=== PATIENT | female | born 1950 ===

== ENCOUNTER 2018-11-24 15:02 | Inpatient (IN) | payer MEDICARE, OTHER ==
[2018-11-24 15:13] VITALS: BMI 32.3
--- NOTE | 2018-11-24 15:40 | C.PDOC ---
History Of Present Illness 68 y/o female pt with hx of HTN, DM, GERD and triple bypass presents to the ER c/o SOB, upper abdominal pain and intermittent chest pain for over a week. Pt reports chest pain is exertional and exacerbates when she moves. Her SOB is also exertional and because it got worse, she is unable to lay down flat. Pt also notes that she has intermittent b/l extremity swelling. Pt denies history of CHF and smoking. Pt denies any other associated sx or complaints at this time. Time Seen by Provider: 11/24/18 15:04 Chief Complaint (Nursing): Shortness Of Breath History Per: Patient History/Exam Limitations: no limitations Onset/Duration Of Symptoms: Days Current Symptoms Are (Timing): Still Present Past Medical History Reviewed: Historical Data, Nursing Documentation, Vital Signs Vital Signs: Last Vital Signs Temp 98.2 F 11/24/18 15:12 Pulse 85 11/24/18 15:12 Resp 21 11/24/18 15:12 BP 164/81 H 11/24/18 15:12 Pulse Ox 98 11/24/18 15:12 - Medical History PMH: Anemia, Arthritis, Asthma, COPD, Fractures, HTN, Hypercholesterolemia, Hypothyroidism, Osteoporosis, Rheumatoid Arthritis Surgical History: Appendectomy, CABG (2011), Endoscopy - [facility] Procedures COLONOSCOPY (01/10/14) Family History: States: No Known Family Hx - Social History Hx Alcohol Use: No Hx Substance Use: No - Immunization History Hx Tetanus Toxoid Vaccination: Yes Hx Influenza Vaccination: Yes Hx Pneumococcal Vaccination: Yes Review Of Systems Constitutional: Negative for: Fever, Chills Cardiovascular: Positive for: Chest Pain Respiratory: Positive for: Shortness of Breath Gastrointestinal: Positive for: Abdominal Pain. Negative for: Nausea, Vomiting, Diarrhea Genitourinary: Negative for: Dysuria, Frequency, Hematuria Musculoskeletal: Positive for: Other (b/l extremity swelling ) Skin: Negative for: Rash Neurological: Negative for: Weakness, Numbness Physical Exam - Physical Exam Appears: Non-toxic, No Acute Distress Skin: Warm, Dry Head: Normacephalic Eye(s): bilateral: EOMI Chest: Symmetrical Cardiovascular: Rhythm Regular Respiratory: Rhonchi (b/l bases) Gastrointestinal/Abdominal: Bowel Sounds (normal), Soft, Tenderness (epigastric ) Back: No CVA Tenderness Extremity: Tenderness (b/l lower extremity ), No Pedal Edema, No Calf Tenderness, Capillary Refill (<2 sec), No Deformity, Swelling (b/l lower extremity ) Neurological/Psych: Oriented x3, Normal Speech ED Course And Treatment - Laboratory Results Result Diagrams: 11/24/18 15:34 11/24/18 15:34 ECG: Interpreted By Me, Viewed By Me ECG Rhythm: Sinus Rhythm Interpretation Of ECG: LAD; normal intervals, no ST elevations, T wave inversions in inferolateral leads, ST depressions in inferior leads Rate From EC O2 Sat by Pulse Oximetry: 98 (RA) Pulse Ox Interpretation: Normal - Radiology CXR: Read By Radiologist (IMPRESSION: Possible small right pleural effusion. Status post CABG. No acute infiltrate.) Medical Decision Making Medical Decision Making: plans: -- chem labs -- blood work -- CXR -- aspirin Patient given 325mg ASA. Labs, EKG, CXR done. Patient with NSTEMI and likely new onset CHF. Case discussed with patient's branch lending manager Dr. Jacome, states patient underwent cardiac cath about a year ago with completely clean coronaries. For now can trend troponin. No acute intervention at this time. 600mg plavix and heparin (60u/kg bolus followed by 12u/kg/hr gtt) ordered for NSTEMI. Case discussed with Dr. Baca admitting for PMD Dr. Dorcas Barnett, accepts patient to his service. 20mg lasix ivp given for fluid overload, patient denies history of CHF. Patient admitted to telemetry bed. Does not complain of chest pain at this time. Disposition - Disposition Disposition: HOSPITALIZED Disposition Time: 16:52 Condition: FAIR - Clinical Impression Clinical Impression: NSTEMI (non-ST elevated myocardial infarction), CHF (congestive heart failure), Chest pain, Dyspnea - Scribe Statement The provider has reviewed the documentation as recorded by the Jaiden Centeno Do Provider Attestation: All medical record entries made by the Gaetanoibjae were at my direction and personally dictated by me. I have reviewed the chart and agree that the record accurately reflects my personal performance of the history, physical exam, medical decision making, and the department course for this patient. I have also personally directed, reviewed, and agree with the discharge instructions and disposition.
[2018-11-24 15:57] LABS: BASO % 0.4 % (0.0-2.0); EOS % 0.4 % (0.0-4.0); HEMOGLOBIN 10.3 g/dL (11.0-16.0); LYMPH # 1.4 K/uL (1.0-4.3); LYMPH % 15.6 % (20.0-40.0); MEAN CELL VOLUME 83.9 fL (81.0-99.0); MEAN CORPUSCULAR HEMOGLOBIN 27.9 pg (27.0-31.0); MEAN CORPUSCULAR HGB CONC 33.3 g/dL (33.0-37.0); MEAN PLATELET VOLUME 8.3 fL (7.2-11.7); MONO # 0.6 K/uL (0.0-0.8); MONO % 6.5 % (0.0-10.0); NEUT # 6.8 K/uL (1.8-7.0); NEUT % 77.1 % (50.0-75.0); NRBC % 0.1 % (0.0-2.0); RBC 3.69 Mil/uL (3.80-5.20); RED CELL DISTRIBUTION WIDTH 15.5 % (11.5-14.5); WHITE BLOOD COUNT 8.9 K/uL (4.8-10.8)
[2018-11-24 15:58] LABS: ALB/GLOB RATIO 0.9 (1.0-2.1); ALBUMIN 3.7 g/dL (3.5-5.0); CALCIUM 9.9 mg/dl (8.6-10.4)
[2018-11-24 16:27] LABS: TROPONIN I 2.97 ng/mL (0.00-0.120)
--- NOTE | 2018-11-24 16:44 | RAD ---
Date of service: 11/24/2018 HISTORY: chest pain COMPARISON: 08/11/2016 TECHNIQUE: 1 view obtained. FINDINGS: LUNGS: No infiltrate. PLEURA: Minimal blunting of right costophrenic angle. This may reflect small pleural effusion or chronic pleural thickening. No left pleural effusion. No pneumothorax. CARDIOVASCULAR: There is atherosclerotic calcification of the thoracic aorta. Status post CABG. No pulmonary vascular congestion. OSSEOUS STRUCTURES: No significant abnormalities. VISUALIZED UPPER ABDOMEN: Normal. OTHER FINDINGS: None. IMPRESSION: Possible small right pleural effusion. Status post CABG. No acute infiltrate.
[2018-11-24] MEDS ORDERED: Heparin25000 units/250ml 1/2NS 25,000 UNITS/250 ML BAG IV PRN (17:00)
[2018-11-24 17:34] LABS: INR 1.2; PROTHROMBIN TIME 13.4 SECONDS (9.7-12.2)
[2018-11-24 18:58] LABS: HDL CHOLESTEROL 38 mg/dL (30-70)
[2018-11-24 19:09] LABS: LDL CHOLESTEROL 86 mg/dL (0-129)
[2018-11-24] MEDS: (Novolin R) Insulin Human Regular 100 units/ml vial SC SCH (21:58)
--- NOTE | 2018-11-24 23:07 | CP.PCM.HP ---
Present on Admission - Present on Admission Any Indicators Present on Admission: No Past Patient History - Past Medical History & Family History Past Medical History?: Yes - Past Social History Smoking Status: Never Smoked - CARDIAC Hx Hypercholesterolemia: Yes Hx Hypertension: Yes - PULMONARY Hx Asthma: Yes Hx Chronic Obstructive Pulmonary Disease (COPD): Yes - NEUROLOGICAL Hx Neurological Disorder: No - HEENT Hx HEENT Problems: Yes Hx Cataracts: Yes - ENDOCRINE/METABOLIC Hx Hypothyroidism: Yes - HEMATOLOGICAL/ONCOLOGICAL Hx Anemia: Yes - INTEGUMENTARY Hx Dermatological Problems: No - MUSCULOSKELETAL/RHEUMATOLOGICAL Hx Falls: No - GASTROINTESTINAL Hx Gastrointestinal Disorders: Yes Hx Gastroesophageal Reflux: Yes - GENITOURINARY/GYNECOLOGICAL Hx Genitourinary Disorders: No - PSYCHIATRIC Hx Substance Use: No - SURGICAL HISTORY Hx Appendectomy: Yes Hx Coronary Artery Bypass Graft: Yes (2011) - ANESTHESIA Hx Anesthesia: Yes Hx Anesthesia Reactions: No Hx Malignant Hyperthermia: No Meds Allergies/Adverse Reactions: Allergies Allergy/AdvReac Type Severity Reaction Status Date / Time No Known Allergies Allergy Verified 11/24/18 15:09 Results - Vital Signs Recent Vital Signs: Last Vital Signs Temp 98.2 F 11/24/18 18:50 Pulse 71 11/24/18 18:50 Resp 20 11/24/18 18:50 BP 154/78 H 11/24/18 22:00 Pulse Ox 100 11/24/18 18:50 - Labs Result Diagrams: 11/24/18 15:34 11/24/18 15:34 Labs: Laboratory Results - last 24 hr 11/24/18 11/24/18 11/24/18 15:34 15:34 17:12 WBC 8.9 RBC 3.69 L Hgb 10.3 L Hct 31.0 L MCV 83.9 MCH 27.9 MCHC 33.3 RDW 15.5 H Plt Count 313 MPV 8.3 Neut % (Auto) 77.1 H Lymph % (Auto) 15.6 L [place] % (Auto) 6.5 Eos % (Auto) 0.4 Baso % (Auto) 0.4 Neut # (Auto) 6.8 Lymph # (Auto) 1.4 [place] # (Auto) 0.6 Eos # (Auto) 0.0 Baso # (Auto) 0.0 PT 13.4 H INR 1.2 APTT 37.0 H Sodium 137 Potassium 4.1 Chloride 104 Carbon Dioxide 23 Anion Gap 14 BUN 33 H Creatinine 1.2 Est GFR ( Amer) 54 Est GFR (Non-Af Amer) 45 Random Glucose 138 H Calcium 9.9 Total Bilirubin 0.4 AST 60 H ALT 64 H Alkaline Phosphatase 130 H Troponin I 2.9700 H* NT-Pro-B Natriuret Pep 94975 H Total Protein 7.7 Albumin 3.7 Globulin 4.1 H Albumin/Globulin Ratio 0.9 L Triglycerides Cholesterol LDL Cholesterol Direct HDL Cholesterol Lipase 319 H 11/24/18 18:49 WBC RBC Hgb Hct MCV MCH MCHC RDW Plt Count MPV Neut % (Auto) Lymph % (Auto) [place] % (Auto) Eos % (Auto) Baso % (Auto) Neut # (Auto) Lymph # (Auto) [place] # (Auto) Eos # (Auto) Baso # (Auto) PT INR APTT Sodium Potassium Chloride Carbon Dioxide Anion Gap BUN Creatinine Est GFR ( Amer) Est GFR (Non-Af Amer) Random Glucose Calcium Total Bilirubin AST ALT Alkaline Phosphatase Troponin I NT-Pro-B Natriuret Pep Total Protein Albumin Globulin Albumin/Globulin Ratio Triglycerides 115 Cholesterol 132 LDL Cholesterol Direct 86 HDL Cholesterol 38 Lipase
[2018-11-24 23:52] LABS: CK-MB 1.97 ng/mL (0.0-3.38); TROPONIN I 3.35 ng/mL (0.00-0.120)
[2018-11-25] MEDS: Heparin25000 units/250ml 1/2NS 25,000 UNITS/250 ML BAG IV PRN (00:56)
--- NOTE | 2018-11-25 03:11 | HP ---
CHIEF COMPLAINT: Chest pain and shortness of breath x1 week. HISTORY OF PRESENT ILLNESS: This is a 68-year-old [place] female with history of diabetes, hypertension, hyperlipidemia, hypothyroidism, status post CABG in 2012. Since then, she has been compliant with diet, medication, and followup. She recently saw her sports leadership instructor and primary care physician. For one week, she has been having shortness of breath, and she believes she has asthma. The patient denies any cough, sore throat, or runny nose. She denies any sneezing, itchy eyes, or itchy nose. She denies any history of sputum production, but she says she is in a lot of chest pain and dyspneic to a point that she cannot walk more than two steps. As soon as she starts working, she gets dyspnea. She also has orthopnea and PND. She also has dull chest pain, nonradiating, not associated with diaphoresis or dizziness. She cannot lie down flat. She also has worsening leg edema. She denies any history of prior congestive heart failure. She denies any history of cough or sputum production. She has nocturia. She denies any history of polyuria, polydipsia, or polyphagia. She denies any history of hematuria or pyuria. She denies any history of sneezing, itchy eyes, or itchy nose. There is no history of trauma, fall, or loss of consciousness. There is no history of seizure-like activity. She has tingling and numbness in the feet. She denies any history of back pain or hip pain. CURRENT MEDICATIONS: She is on Singulair, metoprolol, metformin, Levoxyl, irbesartan, Plaquenil, glimepiride, Flonase, and cyclobenzaprine. SOCIAL HISTORY: Nonsmoker, non-ETOH user. PAST MEDICAL HISTORY: Diabetes, hypertension, hyperlipidemia, hypothyroidism, coronary artery disease, status post CABG, neck pain, back pain, and rheumatoid arthritis. FAMILY HISTORY: Negative for premature coronary artery disease. PHYSICAL EXAMINATION: GENERAL: An elderly female, in distress with shortness of breath. VITAL SIGNS: Blood pressure 154/78, pulse 71, respiratory rate 20, and temperature 98. SKIN: Senile turgor. No bruises. No purpura. No petechiae. No ecchymosis. HEENT: Atraumatic and normocephalic. Negative pallor. Negative jaundice. Extraocular movements are intact. NECK: Supple. Positive JVD. Negative thyromegaly. Negative carotid bruits. CHEST WALL: Bilateral symmetrical expansion. LUNGS: Bilateral rales in two third of the lung jarrett, coarse. No rhonchi. CARDIOVASCULAR SYSTEM: PMI not localized. S1 and S2, plus S3 positive. Has 2/6 ejection systolic murmur. ABDOMEN: Soft and nontender. Bowel sounds are positive. RECTAL: Could not be performed due to dyspnea. PELVIC: Could not be performed due to dyspnea. EXTREMITIES: +3 pitting edema. CENTRAL NERVOUS SYSTEM: Awake, alert, and oriented x3. Cranial nerves II through XII are normal. Power 5/5 x4. Plantars are downgoing. ASSESSMENT: 1. Acute coronary syndrome. 2. Acute congestive heart failure, new onset. 3. Type 2 diabetes. 4. Hypertension; poorly controlled. 5. Hypothyroidism. PLAN: Admit. Detailed orders are written. Seen and examined. Abdiel Baca MD
[2018-11-25] MEDS: Levothyroxine 88 MCG TAB PO SCH (05:55)
[2018-11-25] MEDS: (Novolin R) Insulin Human Regular 100 units/ml vial SC SCH ×4 (07:52→22:00)
[2018-11-25 08:24] LABS: BASO % 0.6 % (0.0-2.0); EOS # 0.1 K/uL (0.0-0.7); EOS % 1.7 % (0.0-4.0); HEMOGLOBIN 10.2 g/dL (11.0-16.0); LYMPH # 1.6 K/uL (1.0-4.3); LYMPH % 21.7 % (20.0-40.0); MEAN CELL VOLUME 83.9 fL (81.0-99.0); MEAN CORPUSCULAR HEMOGLOBIN 28.1 pg (27.0-31.0); MEAN CORPUSCULAR HGB CONC 33.5 g/dL (33.0-37.0); MEAN PLATELET VOLUME 8.2 fL (7.2-11.7); MONO # 0.5 K/uL (0.0-0.8); MONO % 6.7 % (0.0-10.0); NEUT # 5.1 K/uL (1.8-7.0); NEUT % 69.3 % (50.0-75.0); RBC 3.64 Mil/uL (3.80-5.20); RED CELL DISTRIBUTION WIDTH 15.8 % (11.5-14.5); WHITE BLOOD COUNT 7.4 K/uL (4.8-10.8)
[2018-11-25 08:43] LABS: CK-MB 1.91 ng/mL (0.0-3.38); TROPONIN I 2.59 ng/mL (0.00-0.120)
[2018-11-25] MEDS ORDERED: Arformoterol 15 mcg/2 ml Inh Sol INH SCH (14:15)
[2018-11-25 15:02] LABS: SQUAMOUS EPITHIAL 13 /hpf (0-5); URINE BACTERIA MANY (<OCC); URINE BILIRUBIN NEGATIVE (NEGATIVE); URINE BLOOD NEGATIVE (NEGATIVE); URINE CLARITY Hazy (Clear); URINE COLOR Yellow (YELLOW); URINE GLUCOSE (UA) NORMAL (Normal); URINE LEUKOCYTE ESTERASE NEG Leu/uL (Negative); URINE PROTEIN NEGATIVE (NEGATIVE); URINE UROBILINOGEN NORMAL mg/dL (0.2-1.0)
[2018-11-25 15:33] LABS: CREATININE, RANDOM URINE 23.2 mg/dL
--- NOTE | 2018-11-25 15:50 | CP.PCM.CON ---
History of Present Illness - History of Present Illness History of Present Illness: 68 y/o female with hx of HTN, DM, GERD, CAD s/p CABG 2011 presents to [facility] with c/o SOB, upper abdominal pain and intermittent chest pain for over a week. Patient has long history of leg swelling, dyspnea on exerction and h/o diabetes. Pmx: HTN/CAD/Dm/CAd/CHF Psug hx: CABG -allergies: NKDA -SH: denies smoking or illicit drug saranya Patient recently went to a [facility] who dx her with asthma and gave her an IM injection of solumedrol/steroid. ICU consulted for worsening SOB Review of Systems - Review of Systems All systems: reviewed and no additional remarkable complaints except Past Patient History - Tetanus Immunizations Tetanus Immunization: Unknown - Past Medical History & Family History Past Medical History?: Yes - Past Social History Smoking Status: Never Smoked Chewing Tobacco Use: No Cigar Use: No - CARDIAC Hx Hypercholesterolemia: Yes Hx Hypertension: Yes - PULMONARY Hx Asthma: Yes Hx Chronic Obstructive Pulmonary Disease (COPD): Yes - NEUROLOGICAL Hx Neurological Disorder: No - HEENT Hx HEENT Problems: Yes Hx Cataracts: Yes - ENDOCRINE/METABOLIC Hx Hypothyroidism: Yes - HEMATOLOGICAL/ONCOLOGICAL Hx Anemia: Yes - INTEGUMENTARY Hx Dermatological Problems: No - MUSCULOSKELETAL/RHEUMATOLOGICAL Hx Arthritis: Yes Hx Fractures: Yes Hx Osteoporosis: Yes Hx Rheumatoid Arthritis: Yes - GASTROINTESTINAL Hx Gastrointestinal Disorders: Yes Hx Gastroesophageal Reflux: Yes - GENITOURINARY/GYNECOLOGICAL Hx Genitourinary Disorders: No - PSYCHIATRIC Hx Substance Use: No - SURGICAL HISTORY Hx Appendectomy: Yes Hx Coronary Artery Bypass Graft: Yes (2011) - ANESTHESIA Hx Anesthesia: Yes Hx Anesthesia Reactions: No Hx Malignant Hyperthermia: No Meds Allergies/Adverse Reactions: Allergies Allergy/AdvReac Type Severity Reaction Status Date / Time No Known Allergies Allergy Verified 11/24/18 15:09 - Medications Medications: Current Medications Albuterol Sulfate (Albuterol 0.083% Inhal Sophie (2.5 Mg/3 Ml) Ud) 2.5 mg INH RBID PRN PRN Reason: Wheezing Arformoterol Tartrate (Brovana) 15 mcg INH RQ12 [facility] Aspirin (Ecotrin) 81 mg PO DAILY [facility] Last Admin: 11/25/18 09:31 Dose: 81 mg Budesonide (Pulmicort Respules) 0.25 mg INH RQ12 [facility] Clopidogrel Bisulfate (Plavix) 75 mg PO DAILY [facility] Last Admin: 11/25/18 09:30 Dose: 75 mg Famotidine (Pepcid) 20 mg PO BID [facility] Last Admin: 11/25/18 09:30 Dose: 20 mg Furosemide (Lasix) 40 mg IVP DAILY [facility] Last Admin: 11/25/18 09:31 Dose: 40 mg Glimepiride (Amaryl) 2 mg PO DAILY [facility] Last Admin: 11/25/18 09:30 Dose: 2 mg Hydroxychloroquine Sulfate (Plaquenil) 200 mg PO DAILY [facility]; Protocol Last Admin: 11/25/18 09:30 Dose: 200 mg Heparin Sodium/Sodium Chloride (Heparin 50131 Units/250ml 1/2 Normal Saline) 25,000 units in 250 mls @ 6.532 mls/hr IV .Q24H PRN; Protocol PRN Reason: ADJUST RATE PER PROTOCOL Last Admin: 11/25/18 00:56 Dose: 9 units/kg/hr, 6.532 mls/hr Insulin Human Regular (Novolin R) 0 unit SC [facility]; Protocol Last Admin: 11/25/18 12:30 Dose: Not Given Levothyroxine Sodium (Synthroid) 88 mcg PO DAILY@0630 [facility] Last Admin: 11/25/18 05:55 Dose: 88 mcg Losartan Potassium (Cozaar) 100 mg PO DAILY [facility] Last Admin: 11/25/18 09:33 Dose: 100 mg Metoclopramide HCl (Reglan) 5 mg PO ACTID [facility] Last Admin: 11/25/18 13:36 Dose: 5 mg Metoprolol Tartrate (Lopressor) 50 mg PO BID [facility] Last Admin: 11/25/18 09:31 Dose: 50 mg Rosuvastatin Calcium (Crestor) 20 mg PO HS [facility] Last Admin: 11/24/18 21:46 Dose: Not Given Physical Exam - Head Exam Head Exam: ATRAUMATIC, NORMAL INSPECTION, NORMOCEPHALIC - Eye Exam Eye Exam: EOMI, PERRL Pupil Exam: NORMAL ACCOMODATION - ENT Exam ENT Exam: Mucous Membranes Moist - Respiratory Exam Respiratory Exam: Clear to Auscultation Bilateral, Rales, Respiratory Distress, NORMAL BREATHING PATTERN. absent: Rhonchi, Wheezes, Stridor - Cardiovascular Exam Cardiovascular Exam: REGULAR RHYTHM, +S1, +S2, Systolic Murmur - GI/Abdominal Exam GI & Abdominal Exam: Normal Bowel Sounds, Organomegaly, Soft. absent: Guarding, Hernia, Mass, Tenderness - Extremities Exam Extremities exam: Positive for: pedal edema - Neurological Exam Neurological exam: Alert, Oriented x3 Results - Vital Signs Recent Vital Signs: Last Vital Signs Temp 98.0 F 11/25/18 07:00 Pulse 67 11/25/18 07:00 Resp 18 11/25/18 07:00 BP 133/79 11/25/18 09:31 Pulse Ox 100 11/25/18 07:00 - Labs Result Diagrams: 11/26/18 06:12 11/26/18 06:09 Labs: Laboratory Results - last 24 hr 11/24/18 11/24/18 11/24/18 15:34 15:34 17:12 WBC 8.9 RBC 3.69 L Hgb 10.3 L Hct 31.0 L MCV 83.9 MCH 27.9 MCHC 33.3 RDW 15.5 H Plt Count 313 MPV 8.3 Neut % (Auto) 77.1 H Lymph % (Auto) 15.6 L [place] % (Auto) 6.5 Eos % (Auto) 0.4 Baso % (Auto) 0.4 Neut # (Auto) 6.8 Lymph # (Auto) 1.4 [place] # (Auto) 0.6 Eos # (Auto) 0.0 Baso # (Auto) 0.0 PT 13.4 H INR 1.2 APTT 37.0 H Sodium 137 Potassium 4.1 Chloride 104 Carbon Dioxide 23 Anion Gap 14 BUN 33 H Creatinine 1.2 Est GFR ( Amer) 54 Est GFR (Non-Af Amer) 45 Random Glucose 138 H Calcium 9.9 Total Bilirubin 0.4 AST 60 H ALT 64 H Alkaline Phosphatase 130 H Total Creatine Kinase CK-MB (Mass) Troponin I 2.9700 H* NT-Pro-B Natriuret Pep 42943 H Total Protein 7.7 Albumin 3.7 Globulin 4.1 H Albumin/Globulin Ratio 0.9 L Triglycerides Cholesterol LDL Cholesterol Direct HDL Cholesterol Lipase 319 H Urine Color Urine Clarity Urine pH Ur Specific [place] Urine Protein Urine Glucose (UA) Urine Ketones Urine Blood Urine Nitrate Urine Bilirubin Urine Urobilinogen Ur Leukocyte Esterase Urine WBC (Auto) Urine RBC (Auto) Ur Squamous Epith Cells Urine Bacteria Ur Random Creatinine Ur Random Sodium Ur Random Urea Nitrogn 11/24/18 11/24/18 11/24/18 18:49 22:57 23:16 WBC RBC Hgb Hct MCV MCH MCHC RDW Plt Count MPV Neut % (Auto) Lymph % (Auto) [place] % (Auto) Eos % (Auto) Baso % (Auto) Neut # (Auto) Lymph # (Auto) [place] # (Auto) Eos # (Auto) Baso # (Auto) PT INR APTT 149.0 H* D Sodium Potassium Chloride Carbon Dioxide Anion Gap BUN Creatinine Est GFR ( Amer) Est GFR (Non-Af Amer) Random Glucose Calcium Total Bilirubin AST ALT Alkaline Phosphatase Total Creatine Kinase 65 CK-MB (Mass) 1.97 Troponin I 3.3500 H* NT-Pro-B Natriuret Pep Total Protein Albumin Globulin Albumin/Globulin Ratio Triglycerides 115 Cholesterol 132 LDL Cholesterol Direct 86 HDL Cholesterol 38 Lipase Urine Color Urine Clarity Urine pH Ur Specific [place] Urine Protein Urine Glucose (UA) Urine Ketones Urine Blood Urine Nitrate Urine Bilirubin Urine Urobilinogen Ur Leukocyte Esterase Urine WBC (Auto) Urine RBC (Auto) Ur Squamous Epith Cells Urine Bacteria Ur Random Creatinine Ur Random Sodium Ur Random Urea Nitrogn 11/25/18 11/25/18 11/25/18 07:57 07:57 07:57 WBC 7.4 RBC 3.64 L Hgb 10.2 L Hct 30.6 L MCV 83.9 MCH 28.1 MCHC 33.5 RDW 15.8 H Plt Count 303 MPV 8.2 Neut % (Auto) 69.3 Lymph % (Auto) 21.7 [place] % (Auto) 6.7 Eos % (Auto) 1.7 Baso % (Auto) 0.6 Neut # (Auto) 5.1 Lymph # (Auto) 1.6 [place] # (Auto) 0.5 Eos # (Auto) 0.1 Baso # (Auto) 0.0 PT INR APTT 62.0 H D Sodium Potassium Chloride Carbon Dioxide Anion Gap BUN Creatinine Est GFR ( Amer) Est GFR (Non-Af Amer) Random Glucose Calcium Total Bilirubin AST ALT Alkaline Phosphatase Total Creatine Kinase 52 CK-MB (Mass) 1.91 Troponin I 2.5900 H* NT-Pro-B Natriuret Pep Total Protein Albumin Globulin Albumin/Globulin Ratio Triglycerides Cholesterol LDL Cholesterol Direct HDL Cholesterol Lipase Urine Color Urine Clarity Urine pH Ur Specific [place] Urine Protein Urine Glucose (UA) Urine Ketones Urine Blood Urine Nitrate Urine Bilirubin Urine Urobilinogen Ur Leukocyte Esterase Urine WBC (Auto) Urine RBC (Auto) Ur Squamous Epith Cells Urine Bacteria Ur Random Creatinine Ur Random Sodium Ur Random Urea Nitrogn 11/25/18 11/25/18 11/25/18 14:27 14:55 14:55 WBC RBC Hgb Hct MCV MCH MCHC RDW Plt Count MPV Neut % (Auto) Lymph % (Auto) [place] % (Auto) Eos % (Auto) Baso % (Auto) Neut # (Auto) Lymph # (Auto) [place] # (Auto) Eos # (Auto) Baso # (Auto) PT INR APTT 50.0 H D Sodium Potassium Chloride Carbon Dioxide Anion Gap BUN Creatinine Est GFR ( Amer) Est GFR (Non-Af Amer) Random Glucose Calcium Total Bilirubin AST ALT Alkaline Phosphatase Total Creatine Kinase CK-MB (Mass) Troponin I NT-Pro-B Natriuret Pep Total Protein Albumin Globulin Albumin/Globulin Ratio Triglycerides Cholesterol LDL Cholesterol Direct HDL Cholesterol Lipase Urine Color Yellow Urine Clarity Hazy Urine pH 5.0 Ur Specific [place] 1.005 Urine Protein Negative Urine Glucose (UA) Normal Urine Ketones Negative Urine Blood Negative Urine Nitrate Negative Urine Bilirubin Negative Urine Urobilinogen Normal Ur Leukocyte Esterase Neg Urine WBC (Auto) 1 Urine RBC (Auto) 1 Ur Squamous Epith Cells 13 H Urine Bacteria Many H Ur Random Creatinine 23.2 Ur Random Sodium 105 Ur Random Urea Nitrogn 195 Assessment & Plan - Assessment and Plan (Free Text) Assessment: NSTEMI: continue IV heparin and DAP therapy as per cardiology, continue statin, monitor serial trop and echo CHronic systolic heart failure: negative balance, decrease preload and a fterloaed, bi-pap PRN -CKD: avoid nephrotoxic drugs, avoid bactrim, hold losartan if cath anticipated -Diabeted: check HBA1c, hold bactrim, in light of posisble cardiac carth -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 - Date & Time Date: 11/25/18 Time: 15:54
--- NOTE | 2018-11-25 16:00 | CP.PCM.CON ---
History of Present Illness - History of Present Illness History of Present Illness: Reason For Consultation: Non ST elevation [place] 68 y/o female pt with hx of HTN, DM, GERD and triple bypass presents to the ER c/o SOB, upper abdominal pain and intermittent chest pain for over a week. Pt reports chest pain is exertional and exacerbates when she moves. Her SOB is also exertional and because it got worse, she is unable to lay down flat. Pt also notes that she has intermittent b/l extremity swelling. Pt denies history of CHF and smoking. Pt denies any other associated sx or complaints at this time. Chief Complaint (Nursing): Shortness Of Breath History Per: Patient History/Exam Limitations: no limitations Onset/Duration Of Symptoms: Days Current Symptoms Are (Timing): Still Present Past Medical History Reviewed: Historical Data, Nursing Documentation, Vital Signs Vital Signs: Last Vital Signs Temp 98.2 F 11/24/18 15:12 Pulse 85 11/24/18 15:12 Resp 21 11/24/18 15:12 BP 164/81 H 11/24/18 15:12 Pulse Ox 98 11/24/18 15:12 - Medical History PMH: Anemia, Arthritis, Asthma, COPD, Fractures, HTN, Hypercholesterolemia, Hypothyroidism, Osteoporosis, Rheumatoid Arthritis Surgical History: Appendectomy, CABG (2011), Endoscopy - [facility] Procedures COLONOSCOPY (01/10/14) Family History: States: No Known Family Hx - Social History Hx Alcohol Use: No Hx Substance Use: No - Immunization History Hx Tetanus Toxoid Vaccination: Yes Hx Influenza Vaccination: Yes Hx Pneumococcal Vaccination: Yes Review Of Systems Constitutional: Negative for: Fever, Chills Cardiovascular: Positive for: Chest Pain Respiratory: Positive for: Shortness of Breath Gastrointestinal: Positive for: Abdominal Pain. Negative for: Nausea, Vomiting, Diarrhea Genitourinary: Negative for: Dysuria, Frequency, Hematuria Musculoskeletal: Positive for: Other (b/l extremity swelling ) Skin: Negative for: Rash Neurological: Negative for: Weakness, Numbness Physical Exam - Physical Exam Appears: Non-toxic, No Acute Distress Skin: Warm, Dry Head: Normacephalic Eye(s): bilateral: EOMI Chest: Symmetrical Cardiovascular: Rhythm Regular Respiratory: Rhonchi (b/l bases) Gastrointestinal/Abdominal: Bowel Sounds (normal), Soft, Tenderness (epigastric ) Back: No CVA Tenderness Extremity: Tenderness (b/l lower extremity ), No Pedal Edema, No Calf Tenderness, Capillary Refill (<2 sec), No Deformity, Swelling (b/l lower e xtremity ) Neurological/Psych: Oriented x3, Normal Speech Past Patient History - Tetanus Immunizations Tetanus Immunization: Unknown - Past Medical History & Family History Past Medical History?: Yes - Past Social History Smoking Status: Never Smoked Chewing Tobacco Use: No Cigar Use: No - CARDIAC Hx Hypercholesterolemia: Yes Hx Hypertension: Yes - PULMONARY Hx Asthma: Yes Hx Chronic Obstructive Pulmonary Disease (COPD): Yes - NEUROLOGICAL Hx Neurological Disorder: No - HEENT Hx HEENT Problems: Yes Hx Cataracts: Yes - ENDOCRINE/METABOLIC Hx Hypothyroidism: Yes - HEMATOLOGICAL/ONCOLOGICAL Hx Anemia: Yes - INTEGUMENTARY Hx Dermatological Problems: No - MUSCULOSKELETAL/RHEUMATOLOGICAL Hx Arthritis: Yes Hx Fractures: Yes Hx Osteoporosis: Yes Hx Rheumatoid Arthritis: Yes - GASTROINTESTINAL Hx Gastrointestinal Disorders: Yes Hx Gastroesophageal Reflux: Yes - GENITOURINARY/GYNECOLOGICAL Hx Genitourinary Disorders: No - PSYCHIATRIC Hx Substance Use: No - SURGICAL HISTORY Hx Appendectomy: Yes Hx Coronary Artery Bypass Graft: Yes (2011) - ANESTHESIA Hx Anesthesia: Yes Hx Anesthesia Reactions: No Hx Malignant Hyperthermia: No Meds Allergies/Adverse Reactions: Allergies Allergy/AdvReac Type Severity Reaction Status Date / Time No Known Allergies Allergy Verified 11/24/18 15:09 - Medications Medications: Current Medications Albuterol Sulfate (Albuterol 0.083% Inhal Sophie (2.5 Mg/3 Ml) Ud) 2.5 mg INH RBID PRN PRN Reason: Wheezing Arformoterol Tartrate (Brovana) 15 mcg INH RQ12 [facility] Aspirin (Ecotrin) 81 mg PO DAILY [facility] Last Admin: 11/25/18 09:31 Dose: 81 mg Budesonide (Pulmicort Respules) 0.25 mg INH RQ12 [facility] Clopidogrel Bisulfate (Plavix) 75 mg PO DAILY [facility] Last Admin: 11/25/18 09:30 Dose: 75 mg Famotidine (Pepcid) 20 mg PO BID [facility] Last Admin: 11/25/18 09:30 Dose: 20 mg Furosemide (Lasix) 40 mg IVP DAILY [facility] Last Admin: 11/25/18 09:31 Dose: 40 mg Glimepiride (Amaryl) 2 mg PO DAILY [facility] Last Admin: 11/25/18 09:30 Dose: 2 mg Hydroxychloroquine Sulfate (Plaquenil) 200 mg PO DAILY [facility]; Protocol Last Admin: 11/25/18 09:30 Dose: 200 mg Heparin Sodium/Sodium Chloride (Heparin 04056 Units/250ml 1/2 Normal Saline) 25,000 units in 250 mls @ 6.532 mls/hr IV .Q24H PRN; Protocol PRN Reason: ADJUST RATE PER PROTOCOL Last Admin: 11/25/18 00:56 Dose: 9 units/kg/hr, 6.532 mls/hr Insulin Human Regular (Novolin R) 0 unit SC ACHS [facility]; Protocol Last Admin: 11/25/18 12:30 Dose: Not Given Levothyroxine Sodium (Synthroid) 88 mcg PO DAILY@0630 [facility] Last Admin: 11/25/18 05:55 Dose: 88 mcg Losartan Potassium (Cozaar) 100 mg PO DAILY [facility] Last Admin: 11/25/18 09:33 Dose: 100 mg Metoclopramide HCl (Reglan) 5 mg PO ACTID [facility] Last Admin: 11/25/18 13:36 Dose: 5 mg Metoprolol Tartrate (Lopressor) 50 mg PO BID [facility] Last Admin: 11/25/18 09:31 Dose: 50 mg Rosuvastatin Calcium (Crestor) 20 mg PO HS [facility] Last Admin: 11/24/18 21:46 Dose: Not Given Results - Vital Signs Recent Vital Signs: Last Vital Signs Temp 98.0 F 11/25/18 07:00 Pulse 67 11/25/18 07:00 Resp 18 11/25/18 07:00 BP 133/79 11/25/18 09:31 Pulse Ox 100 11/25/18 07:00 - Labs Result Diagrams: 11/25/18 07:57 11/24/18 15:34 Labs: Laboratory Results - last 24 hr 11/24/18 11/24/18 11/24/18 15:34 15:34 17:12 WBC 8.9 RBC 3.69 L Hgb 10.3 L Hct 31.0 L MCV 83.9 MCH 27.9 MCHC 33.3 RDW 15.5 H Plt Count 313 MPV 8.3 Neut % (Auto) 77.1 H Lymph % (Auto) 15.6 L [place] % (Auto) 6.5 Eos % (Auto) 0.4 Baso % (Auto) 0.4 Neut # (Auto) 6.8 Lymph # (Auto) 1.4 [place] # (Auto) 0.6 Eos # (Auto) 0.0 Baso # (Auto) 0.0 PT 13.4 H INR 1.2 APTT 37.0 H Sodium 137 Potassium 4.1 Chloride 104 Carbon Dioxide 23 Anion Gap 14 BUN 33 H Creatinine 1.2 Est GFR ( Amer) 54 Est GFR (Non-Af Amer) 45 Random Glucose 138 H Calcium 9.9 Total Bilirubin 0.4 AST 60 H ALT 64 H Alkaline Phosphatase 130 H Total Creatine Kinase CK-MB (Mass) Troponin I 2.9700 H* NT-Pro-B Natriuret Pep 37055 H Total Protein 7.7 Albumin 3.7 Globulin 4.1 H Albumin/Globulin Ratio 0.9 L Triglycerides Cholesterol LDL Cholesterol Direct HDL Cholesterol Lipase 319 H Urine Color Urine Clarity Urine pH Ur Specific [place] Urine Protein Urine Glucose (UA) Urine Ketones Urine Blood Urine Nitrate Urine Bilirubin Urine Urobilinogen Ur Leukocyte Esterase Urine WBC (Auto) Urine RBC (Auto) Ur Squamous Epith Cells Urine Bacteria Ur Random Creatinine Ur Random Sodium Ur Random Urea Nitrogn 11/24/18 11/24/18 11/24/18 18:49 22:57 23:16 WBC RBC Hgb Hct MCV MCH MCHC RDW Plt Count MPV Neut % (Auto) Lymph % (Auto) [place] % (Auto) Eos % (Auto) Baso % (Auto) Neut # (Auto) Lymph # (Auto) [place] # (Auto) Eos # (Auto) Baso # (Auto) PT INR APTT 149.0 H* D Sodium Potassium Chloride Carbon Dioxide Anion Gap BUN Creatinine Est GFR ( Amer) Est GFR (Non-Af Amer) Random Glucose Calcium Total Bilirubin AST ALT Alkaline Phosphatase Total Creatine Kinase 65 CK-MB (Mass) 1.97 Troponin I 3.3500 H* NT-Pro-B Natriuret Pep Total Protein Albumin Globulin Albumin/Globulin Ratio Triglycerides 115 Cholesterol 132 LDL Cholesterol Direct 86 HDL Cholesterol 38 Lipase Urine Color Urine Clarity Urine pH Ur Specific [place] Urine Protein Urine Glucose (UA) Urine Ketones Urine Blood Urine Nitrate Urine Bilirubin Urine Urobilinogen Ur Leukocyte Esterase Urine WBC (Auto) Urine RBC (Auto) Ur Squamous Epith Cells Urine Bacteria Ur Random Creatinine Ur Random Sodium Ur Random Urea Nitrogn 11/25/18 11/25/18 11/25/18 07:57 07:57 07:57 WBC 7.4 RBC 3.64 L Hgb 10.2 L Hct 30.6 L MCV 83.9 MCH 28.1 MCHC 33.5 RDW 15.8 H Plt Count 303 MPV 8.2 Neut % (Auto) 69.3 Lymph % (Auto) 21.7 [place] % (Auto) 6.7 Eos % (Auto) 1.7 Baso % (Auto) 0.6 Neut # (Auto) 5.1 Lymph # (Auto) 1.6 [place] # (Auto) 0.5 Eos # (Auto) 0.1 Baso # (Auto) 0.0 PT INR APTT 62.0 H D Sodium Potassium Chloride Carbon Dioxide Anion Gap BUN Creatinine Est GFR ( Amer) Est GFR (Non-Af Amer) Random Glucose Calcium Total Bilirubin AST ALT Alkaline Phosphatase Total Creatine Kinase 52 CK-MB (Mass) 1.91 Troponin I 2.5900 H* NT-Pro-B Natriuret Pep Total Protein Albumin Globulin Albumin/Globulin Ratio Triglycerides Cholesterol LDL Cholesterol Direct HDL Cholesterol Lipase Urine Color Urine Clarity Urine pH Ur Specific [place] Urine Protein Urine Glucose (UA) Urine Ketones Urine Blood Urine Nitrate Urine Bilirubin Urine Urobilinogen Ur Leukocyte Esterase Urine WBC (Auto) Urine RBC (Auto) Ur Squamous Epith Cells Urine Bacteria Ur Random Creatinine Ur Random Sodium Ur Random Urea Nitrogn 11/25/18 11/25/18 11/25/18 14:27 14:55 14:55 WBC RBC Hgb Hct MCV MCH MCHC RDW Plt Count MPV Neut % (Auto) Lymph % (Auto) [place] % (Auto) Eos % (Auto) Baso % (Auto) Neut # (Auto) Lymph # (Auto) [place] # (Auto) Eos # (Auto) Baso # (Auto) PT INR APTT 50.0 H D Sodium Potassium Chloride Carbon Dioxide Anion Gap BUN Creatinine Est GFR ( Amer) Est GFR (Non-Af Amer) Random Glucose Calcium Total Bilirubin AST ALT Alkaline Phosphatase Total Creatine Kinase CK-MB (Mass) Troponin I NT-Pro-B Natriuret Pep Total Protein Albumin Globulin Albumin/Globulin Ratio Triglycerides Cholesterol LDL Cholesterol Direct HDL Cholesterol Lipase Urine Color Yellow Urine Clarity Hazy Urine pH 5.0 Ur Specific [place] 1.005 Urine Protein Negative Urine Glucose (UA) Normal Urine Ketones Negative Urine Blood Negative Urine Nitrate Negative Urine Bilirubin Negative Urine Urobilinogen Normal Ur Leukocyte Esterase Neg Urine WBC (Auto) 1 Urine RBC (Auto) 1 Ur Squamous Epith Cells 13 H Urine Bacteria Many H Ur Random Creatinine 23.2 Ur Random Sodium 105 Ur Random Urea Nitrogn 195 Assessment & Plan - Assessment and Plan (Free Text) Assessment: 68 F with Acute Coronary syndrome Elevated Troponin Lateral ST depression CAD s/p CABG x 3 (2011) DM2 HTN Hyperlipidemia ASA, Plavix, IV Heparin, Statins, B blockers ECHO Cardiac Cath Tuesday ICU observation Thank you
[2018-11-25 16:40] LABS: CK-MB 1.44 ng/mL (0.0-3.38)
[2018-11-25 17:14] LABS: ALBUMIN 3.6 g/dL (3.5-5.0); CALCIUM 9.1 mg/dl (8.6-10.4)
--- NOTE | 2018-11-25 17:58 | RAD ---
Date of service: 11/25/2018 HISTORY: r/o CHF COMPARISON: 11/24/2018 TECHNIQUE: 1 view obtained. FINDINGS: LUNGS: No consolidation. Possible interstitial pulmonary edema. PLEURA: Small right pleural effusion. No left pleural effusion. No pneumothorax. CARDIOVASCULAR: No aortic atherosclerotic calcification present. Normal heart size. Congestive change noted. Sternotomy wires. No pulmonary vascular congestion. OSSEOUS STRUCTURES: No significant abnormalities. VISUALIZED UPPER ABDOMEN: Normal. OTHER FINDINGS: None. IMPRESSION: Possible interstitial pulmonary edema. Follow-up advised. Congestive change. Small right pleural effusion. No infiltrate.
[2018-11-25] MEDS: Budesonide 0.25 mg/2 ml Inhal Susp UD INH SCH (19:44)
[2018-11-25] MEDS: Albuterol 0.083% Inhal Sol (2.5 mg/3 mL) UD INH PRN (19:44)
[2018-11-25] MEDS: Arformoterol 15 mcg/2 ml Inh Sol INH SCH (19:44)
--- NOTE | 2018-11-25 20:29 | CP.PCM.PN ---
Subjective - Date & Time of Evaluation Date of Evaluation: 11/25/18 Time of Evaluation: 07:00 - Subjective Subjective: dcit Objective - Vital Signs/Intake and Output Vital Signs (last 24 hours): Temp Pulse Resp BP Pulse Ox 98.3 F 61 24 161/85 H 100 11/25/18 20:00 11/25/18 20:00 11/25/18 20:00 11/25/18 20:00 11/25/18 20:00 Intake and Output: 11/25/18 11/26/18 18:59 06:59 Intake Total 269.5 13.0 Output Total 50 300 Balance 219.5 -287.0 - Medications Medications: Current Medications Albuterol Sulfate (Albuterol 0.083% Inhal Sophie (2.5 Mg/3 Ml) Ud) 2.5 mg INH RBID PRN PRN Reason: Wheezing Last Admin: 11/25/18 19:44 Dose: 2.5 mg Arformoterol Tartrate (Brovana) 15 mcg INH RQ12 [facility] Last Admin: 11/25/18 19:44 Dose: 15 mcg Aspirin (Ecotrin) 81 mg PO DAILY [facility] Last Admin: 11/25/18 09:31 Dose: 81 mg Budesonide (Pulmicort Respules) 0.25 mg INH RQ12 [facility] Last Admin: 11/25/18 19:44 Dose: 0.25 mg Clopidogrel Bisulfate (Plavix) 75 mg PO DAILY [facility] Last Admin: 11/25/18 09:30 Dose: 75 mg Famotidine (Pepcid) 20 mg PO BID [facility] Last Admin: 11/25/18 17:30 Dose: 20 mg Furosemide (Lasix) 40 mg IVP DAILY [facility] Last Admin: 11/25/18 09:31 Dose: 40 mg Glimepiride (Amaryl) 2 mg PO DAILY [facility] Last Admin: 11/25/18 09:30 Dose: 2 mg Hydroxychloroquine Sulfate (Plaquenil) 200 mg PO DAILY [facility]; Protocol Last Admin: 11/25/18 09:30 Dose: 200 mg Heparin Sodium/Sodium Chloride (Heparin 49542 Units/250ml 1/2 Normal Saline) 25,000 units in 250 mls @ 6.532 mls/hr IV .Q24H PRN; Protocol PRN Reason: ADJUST RATE PER PROTOCOL Last Admin: 11/25/18 00:56 Dose: 9 units/kg/hr, 6.532 mls/hr Insulin Human Regular (Novolin R) 0 unit SC ACHS [facility]; Protocol Last Admin: 11/25/18 16:58 Dose: Not Given Levothyroxine Sodium (Synthroid) 88 mcg PO DAILY@0630 [facility] Last Admin: 11/25/18 05:55 Dose: 88 mcg Losartan Potassium (Cozaar) 100 mg PO DAILY [facility] Last Admin: 11/25/18 09:33 Dose: 100 mg Metoclopramide HCl (Reglan) 5 mg PO ACTID [facility] Last Admin: 11/25/18 17:38 Dose: Not Given Metoprolol Tartrate (Lopressor) 50 mg PO BID [facility] Last Admin: 11/25/18 17:30 Dose: 50 mg Rosuvastatin Calcium (Crestor) 20 mg PO HS [facility] Last Admin: 11/24/18 21:46 Dose: Not Given - Labs Labs: 11/25/18 07:57 11/25/18 16:26 PT 13.4 SECONDS (9.7-12.2) H 11/24/18 17:12 INR 1.2 11/24/18 17:12 APTT 50.0 SECONDS (21-34) H D 11/25/18 14:27
--- NOTE | 2018-11-26 00:37 | PN ---
DATE: 11/25/2018 SUBJECTIVE: The patient is feeling a lot better. She is less short of breath, less orthopnea, less cough, less wheezing. No fever. Troponins are trending downwards. The patient does admit seen by Cardiology. No fever. No chills. No nausea or vomiting. PHYSICAL EXAMINATION: VITAL SIGNS: Blood pressure 161/85, pulse rate is 61, respiratory rate 24, temperature 98.3. LUNGS: Bilateral basilar crepitations in one fourth of the lung field at the bases. CARDIOVASCULAR: S1 and S2 plus S3 positive. ABDOMEN: Soft and nontender. Bowel sounds are positive. ASSESSMENT: 1. Acute myocardial infarction. The patient is on medical management, heparin drip; and Cardiology requested transfer patient to the intensive care unit. 2. Congestive heart failure due ischemic cardiomyopathy. 3. Type 2 diabetes. 4. Hypertension. PLAN: MICU. Cardiology, echocardiogram, heparin drip, aspirin, Plavix, statin, Lasix. We will monitor the patient. Abdiel Baca MD
[2018-11-26] MEDS: Levothyroxine 88 MCG TAB PO SCH (06:08)
[2018-11-26 06:18] LABS: BASO # 0.1 K/uL (0.0-0.2); BASO % 0.7 % (0.0-2.0); EOS # 0.2 K/uL (0.0-0.7); EOS % 2.1 % (0.0-4.0); HEMOGLOBIN 10.3 g/dL (11.0-16.0); LYMPH # 1.9 K/uL (1.0-4.3); LYMPH % 24.3 % (20.0-40.0); MEAN CELL VOLUME 85.1 fL (81.0-99.0); MEAN CORPUSCULAR HEMOGLOBIN 26.9 pg (27.0-31.0); MEAN CORPUSCULAR HGB CONC 31.6 g/dL (33.0-37.0); MEAN PLATELET VOLUME 8.2 fL (7.2-11.7); MONO # 0.6 K/uL (0.0-0.8); MONO % 7.4 % (0.0-10.0); NEUT # 5.2 K/uL (1.8-7.0); NEUT % 65.5 % (50.0-75.0); NRBC % 0.1 % (0.0-2.0); RBC 3.83 Mil/uL (3.80-5.20); RED CELL DISTRIBUTION WIDTH 15.8 % (11.5-14.5)
[2018-11-26 06:37] LABS: ALB/GLOB RATIO 1.2 (1.0-2.1); ALBUMIN 4.1 g/dL (3.5-5.0); CALCIUM 9.5 mg/dl (8.6-10.4)
[2018-11-26 07:07] LABS: FERRITIN 16.5 ng/mL
[2018-11-26] MEDS: Albuterol 0.083% Inhal Sol (2.5 mg/3 mL) UD INH PRN ×2 (07:37→19:15)
[2018-11-26] MEDS: Budesonide 0.25 mg/2 ml Inhal Susp UD INH SCH ×2 (07:37→19:15)
[2018-11-26] MEDS: Arformoterol 15 mcg/2 ml Inh Sol INH SCH ×2 (07:37→22:02)
[2018-11-26] MEDS: Heparin25000 units/250ml 1/2NS 25,000 UNITS/250 ML BAG IV PRN (07:46)
[2018-11-26] MEDS: (Novolin R) Insulin Human Regular 100 units/ml vial SC SCH ×4 (07:48→21:26)
[2018-11-26] MEDS ORDERED: Ergocalciferol 50,000 Intl Units Cap PO SCH ×2 (08:00→10:00)
--- NOTE | 2018-11-26 08:01 | CP.PCM.PN ---
Subjective - Date & Time of Evaluation Date of Evaluation: 11/26/18 Time of Evaluation: 07:59 - Subjective Subjective: Feeling better, unable to sleep, SOB on walking 5 feet Objective - Vital Signs/Intake and Output Vital Signs (last 24 hours): Temp Pulse Resp BP Pulse Ox 98.1 F 67 25 H 179/91 H 100 11/26/18 04:00 11/26/18 07:00 11/26/18 07:00 11/26/18 06:59 11/26/18 07:00 Intake and Output: 11/26/18 11/26/18 06:59 18:59 Intake Total 204.5 250 Output Total 1000 Balance -795.5 250 - Medications Medications: Current Medications Acetylcysteine (Acetylcysteine 20%) 6 ml PO Q12H [facility] Stop: 11/27/18 20:01 Albuterol Sulfate (Albuterol 0.083% Inhal Sophie (2.5 Mg/3 Ml) Ud) 2.5 mg INH RBID PRN PRN Reason: Wheezing Last Admin: 11/26/18 07:37 Dose: 2.5 mg Arformoterol Tartrate (Brovana) 15 mcg INH RQ12 [facility] Last Admin: 11/26/18 07:37 Dose: 15 mcg Aspirin (Ecotrin) 81 mg PO DAILY [facility] Last Admin: 11/25/18 09:31 Dose: 81 mg Budesonide (Pulmicort Respules) 0.25 mg INH RQ12 [facility] Last Admin: 11/26/18 07:37 Dose: 0.25 mg Clopidogrel Bisulfate (Plavix) 75 mg PO DAILY [facility] Last Admin: 11/25/18 09:30 Dose: 75 mg Ergocalciferol (Drisdol 50,000 Intl Units Cap) 1 cap PO Q7D [facility] Stop: 12/17/18 08:01 Famotidine (Pepcid) 20 mg PO BID [facility] Last Admin: 11/25/18 17:30 Dose: 20 mg Furosemide (Lasix) 40 mg IVP DAILY [facility] Last Admin: 11/25/18 09:31 Dose: 40 mg Glimepiride (Amaryl) 2 mg PO DAILY [facility] Last Admin: 11/25/18 09:30 Dose: 2 mg Hydroxychloroquine Sulfate (Plaquenil) 200 mg PO DAILY [facility]; Protocol Last Admin: 11/25/18 09:30 Dose: 200 mg Heparin Sodium/Sodium Chloride (Heparin 46645 Units/250ml 1/2 Normal Saline) 25,000 units in 250 mls @ 6.532 mls/hr IV .Q24H [facility]; Protocol PRN Reason: ADJUST RATE PER PROTOCOL Last Admin: 11/26/18 07:46 Dose: 9 units/kg/hr, 6.532 mls/hr Magnesium Sulfate/Dextrose (Magnesium Sulfate 1 Gm/100 Ml D5w) 1 gm in 100 mls @ 100 mls/hr IVPB Q1H [facility] Stop: 11/26/18 09:59 Insulin Human Regular (Novolin R) 0 unit SC ACHS [facility]; Protocol Last Admin: 11/26/18 07:48 Dose: Not Given Levothyroxine Sodium (Synthroid) 88 mcg PO DAILY@0630 [facility] Last Admin: 11/26/18 06:08 Dose: 88 mcg Losartan Potassium (Cozaar) 100 mg PO DAILY [facility] Last Admin: 11/25/18 09:33 Dose: 100 mg Metoclopramide HCl (Reglan) 5 mg PO ACTID [facility] Last Admin: 11/26/18 07:45 Dose: 5 mg Metoprolol Tartrate (Lopressor) 50 mg PO BID [facility] Last Admin: 11/25/18 17:30 Dose: 50 mg Rosuvastatin Calcium (Crestor) 20 mg PO HS [facility] Last Admin: 11/25/18 22:30 Dose: 20 mg Spironolactone (Aldactone) 25 mg PO BID [facility] - Labs Labs: 11/26/18 06:12 11/26/18 06:09 PT 13.4 SECONDS (9.7-12.2) H 11/24/18 17:12 INR 1.2 11/24/18 17:12 APTT 50.0 SECONDS (21-34) H D 11/25/18 14:27 - Head Exam Head Exam: ATRAUMATIC, NORMAL INSPECTION, NORMOCEPHALIC - Eye Exam Pupil Exam: NORMAL ACCOMODATION - ENT Exam ENT Exam: Mucous Membranes Moist - Respiratory Exam Respiratory Exam: Rales, NORMAL BREATHING PATTERN. absent: Rhonchi, Wheezes, Respiratory Distress, Stridor - Cardiovascular Exam Cardiovascular Exam: REGULAR RHYTHM, +S1, +S2 - GI/Abdominal Exam GI & Abdominal Exam: Soft, Normal Bowel Sounds - Extremities Exam Extremities Exam: Pedal Edema - Neurological Exam Neurological Exam: Alert, Awake, CN II-XII Intact, Oriented x3 - Skin Skin Exam: Normal Color, Warm Assessment and Plan - Assessment and Plan (Free Text) Assessment: -NSTEMI: continue IV heparin and DAP therapy as per cardiology, continue statin, monitor serial trop and echo -CHronic systolic/diastolic heart failure: negative balance, decrease preload and afterloaed, bi-pap PRN -Lupus: contineu hydroxychloroquine -Suspect ILD 2nd lupus: continue to monitor -CKD: avoid nephrotoxic drugs, avoid bactrim, hold losartan if cath anticipated -Diabeted: check HBA1c, hold bactrim, in light of posisble cardiac carth -BGM ACHS, ISS lispro -continu edvt ppx/rx with heparin -continue PUD ppx -start oral mucomyst 1200 mg q12 hrs x4 _Progonsis pending cath and other diagnostic tests -Patient feeling better -monitor for bleeding as patient stays on Iv heparin
[2018-11-26] MEDS: Magnesium Sulfate 1 gm in D5W 1 GM/100 ML BAG IVPB SCH ×2 (08:09→08:45)
[2018-11-26] MEDS: Acetylcysteine 20% Inhal Soln (4ml) PO SCH ×2 (08:22→19:15)
--- NOTE | 2018-11-26 08:43 | CON ---
DATE: 11/25/2018 NEPHROLOGY CONSULTATION LOCATION: [facility]. HISTORY OF PRESENT ILLNESS: The patient is a 68-year-old female with past medical history of hypertension, diabetes, CAD, status post CABG (2011), GERD, hypothyroidism, and hyperlipidemia who presented to ED yesterday with worsening dyspnea and associated chest pain. Nephrology being consulted for renal insufficiency. The patient reports dyspnea on exertion with associated increase in leg swelling over the past 1 week. Chest pain is non-radiating, although does complain of some neck pain. The patient denies any change in urination. No decreased urination. The patient does not adhere to dietary salt restriction. The patient otherwise was in her usual state of health. Denies any nausea, vomiting or diarrhea. P.o. intake had been well. PAST MEDICAL HISTORY: As above. SOCIAL HISTORY: Nonsmoker. FAMILY HISTORY: Negative for premature CAD. REVIEW OF SYSTEMS: CONSTITUTIONAL: No anorexia. HEENT: Reports stabilization. Does report some dysphagia. RESPIRATORY: Increased dyspnea. CARDIOVASCULAR: As per HPI. GASTROINTESTINAL: As per HPI. GENITOURINARY: No dysuria. MUSCULOSKELETAL: Gets arthralgias in the knees. Reports taking some pain medication but does not remember the name. NEUROLOGIC: No dizziness. ENDOCRINE: He reports erratic blood pressure control. PHYSICAL EXAMINATION VITAL SIGNS: This afternoon blood pressure 155/83, heart rate 69, respirations 28, temperature 98.2, sat 100% on 3 L via nasal cannula. GENERAL: No distress. Conversing coherently in full sentences. HEENT: Moist mucous membranes. Nonicteric. NECK: No cervical lymphadenopathy. RESPIRATORY: Bilateral basilar rales appreciated. CARDIOVASCULAR: Heart sounds S1, S2 normal. No murmurs, no gallops, no rubs. GASTROINTESTINAL: Abdomen soft, nontender, nondistended. GENITOURINARY: No bladder distention. EXTREMITIES: 2+ bilateral lower leg edema. SKIN: Warm. No cyanosis. PSYCHIATRIC: Normal mood. Normal affect. LABORATORY DATA: This morning CBC: WBC 7.4, hemoglobin 10.2, hematocrit 30.6, platelets 303. Chemistry panel: From yesterday; sodium 137, potassium 4.1, chloride 104, bicarb 23, BUN 32, creatinine 1.2, calcium 9.9, AST 60, ALT 64, alk phos 130, troponin I 2.97. ProBNP 28,800, albumin 3.7. Urine studies: UA negative for protein. Negative for blood. ASSESSMENT AND PLAN: 1. Renal insufficiency. Baseline renal function not known. The patient however reports no prior renal history. Estimated glomerular filtration rate on latest labs is 45 mL per minute. Otherwise stable electrolyte status but does have signs and symptoms of volume overload. I will be with intensive care unit team to pursue more aggressive diuresis. Can increase IV Lasix to 40 mg twice a day. 2. Acute decompensated congestive heart failure. No new echo available. Diuresis as above. 3. Anemia. Hemoglobin 10.2, stable. Unclear if this is due to underlying chronic kidney disease or other disease process. We will give Epogen 1000 units. We will check iron studies. 4. Hypertension. Blood pressure elevated. Currently on losartan 100 mg daily and metoprolol 50 mg b.i.d. Continue the same. Will benefit from intravenous diuresis. 5. Coronary artery disease in a patient with new [id number] myocardia. We will go for cardiac cath tentatively for Tuesday. We will start intravenous fluids and n-acetylcysteine on Tuesday evening as contrast nephropathy prophylaxis. Thank you for this referral. We will be following closely. Silvano Allen MD
--- NOTE | 2018-11-26 10:56 | CP.PCM.PN ---
Subjective - Date & Time of Evaluation Date of Evaluation: 11/26/18 Time of Evaluation: 08:40 - Subjective Subjective: dict Objective - Vital Signs/Intake and Output Vital Signs (last 24 hours): Temp Pulse Resp BP Pulse Ox 98.4 F 75 27 H 148/59 L 99 11/26/18 08:00 11/26/18 10:00 11/26/18 10:00 11/26/18 09:59 11/26/18 10:00 Intake and Output: 11/26/18 11/26/18 06:59 18:59 Intake Total 204.5 839.5 Output Total 1000 Balance -795.5 839.5 - Medications Medications: Current Medications Acetylcysteine (Acetylcysteine 20%) 6 ml PO Q12H [facility] Stop: 11/27/18 20:01 Last Admin: 11/26/18 08:22 Dose: 6 ml Albuterol Sulfate (Albuterol 0.083% Inhal Sophie (2.5 Mg/3 Ml) Ud) 2.5 mg INH RBID PRN PRN Reason: Wheezing Last Admin: 11/26/18 07:37 Dose: 2.5 mg Arformoterol Tartrate (Brovana) 15 mcg INH RQ12 [facility] Last Admin: 11/26/18 07:37 Dose: 15 mcg Aspirin (Ecotrin) 81 mg PO DAILY [facility] Last Admin: 11/26/18 09:42 Dose: 81 mg Budesonide (Pulmicort Respules) 0.25 mg INH RQ12 [facility] Last Admin: 11/26/18 07:37 Dose: 0.25 mg Clopidogrel Bisulfate (Plavix) 75 mg PO DAILY [facility] Last Admin: 11/26/18 09:42 Dose: 75 mg Ergocalciferol (Drisdol 50,000 Intl Units Cap) 1 cap PO Q7D [facility] Stop: 12/17/18 10:01 Last Admin: 11/26/18 09:41 Dose: 1 cap Famotidine (Pepcid) 20 mg PO BID [facility] Last Admin: 11/26/18 09:42 Dose: 20 mg Furosemide (Lasix) 40 mg IVP DAILY [facility] Last Admin: 11/26/18 09:43 Dose: 40 mg Glimepiride (Amaryl) 2 mg PO DAILY [facility] Last Admin: 11/26/18 09:42 Dose: 2 mg Hydroxychloroquine Sulfate (Plaquenil) 200 mg PO DAILY [facility]; Protocol Last Admin: 11/26/18 09:42 Dose: 200 mg Heparin Sodium/Sodium Chloride (Heparin 22691 Units/250ml 1/2 Normal Saline) 25,000 units in 250 mls @ 6.532 mls/hr IV .Q24H PRN; Protocol PRN Reason: ADJUST RATE PER PROTOCOL Last Admin: 11/26/18 07:46 Dose: 9 units/kg/hr, 6.532 mls/hr Insulin Human Regular (Novolin R) 0 unit SC ACHS [facility]; Protocol Last Admin: 11/26/18 07:48 Dose: Not Given Levothyroxine Sodium (Synthroid) 88 mcg PO DAILY@0630 [facility] Last Admin: 11/26/18 06:08 Dose: 88 mcg Losartan Potassium (Cozaar) 100 mg PO DAILY [facility] Last Admin: 11/26/18 09:42 Dose: 100 mg Metoclopramide HCl (Reglan) 5 mg PO ACTID [facility] Last Admin: 11/26/18 07:45 Dose: 5 mg Metoprolol Tartrate (Lopressor) 50 mg PO BID [facility] Last Admin: 11/26/18 09:41 Dose: 50 mg Rosuvastatin Calcium (Crestor) 20 mg PO HS [facility] Last Admin: 11/25/18 22:30 Dose: 20 mg Spironolactone (Aldactone) 25 mg PO BID [facility] Last Admin: 11/26/18 09:42 Dose: 25 mg - Labs Labs: 11/26/18 06:12 11/26/18 06:09 PT 13.4 SECONDS (9.7-12.2) H 11/24/18 17:12 INR 1.2 11/24/18 17:12 APTT 46.0 SECONDS (21-34) H 11/26/18 08:01
[2018-11-26] MEDS: Lidocaine 5% Patch TD SCH (12:28)
--- NOTE | 2018-11-26 19:59 | CP.PCM.PN ---
Subjective - Date & Time of Evaluation Date of Evaluation: 11/26/18 Time of Evaluation: 07:00 - Subjective Subjective: dict Objective - Vital Signs/Intake and Output Vital Signs (last 24 hours): Temp Pulse Resp BP Pulse Ox 98.1 F 63 22 137/60 100 11/26/18 16:00 11/26/18 19:00 11/26/18 19:00 11/26/18 17:59 11/26/18 19:00 Intake and Output: 11/26/18 11/27/18 18:59 06:59 Intake Total 1091.5 156.5 Output Total 1000 Balance 91.5 156.5 - Medications Medications: Current Medications Acetylcysteine (Acetylcysteine 20%) 6 ml PO Q12H [facility] Stop: 11/27/18 20:01 Last Admin: 11/26/18 19:15 Dose: 6 ml Albuterol Sulfate (Albuterol 0.083% Inhal Sophie (2.5 Mg/3 Ml) Ud) 2.5 mg INH RBID PRN PRN Reason: Wheezing Last Admin: 11/26/18 19:15 Dose: 2.5 mg Arformoterol Tartrate (Brovana) 15 mcg INH RQ12 [facility] Last Admin: 11/26/18 07:37 Dose: 15 mcg Aspirin (Ecotrin) 81 mg PO DAILY [facility] Last Admin: 11/26/18 09:42 Dose: 81 mg Budesonide (Pulmicort Respules) 0.25 mg INH RQ12 [facility] Last Admin: 11/26/18 19:15 Dose: 0.25 mg Clopidogrel Bisulfate (Plavix) 75 mg PO DAILY [facility] Last Admin: 11/26/18 09:42 Dose: 75 mg Ergocalciferol (Drisdol 50,000 Intl Units Cap) 1 cap PO Q7D [facility] Stop: 12/17/18 10:01 Last Admin: 11/26/18 09:41 Dose: 1 cap Famotidine (Pepcid) 20 mg PO BID [facility] Last Admin: 11/26/18 17:17 Dose: 20 mg Furosemide (Lasix) 40 mg IVP DAILY [facility] Last Admin: 11/26/18 09:43 Dose: 40 mg Glimepiride (Amaryl) 2 mg PO DAILY [facility] Last Admin: 11/26/18 09:42 Dose: 2 mg Hydroxychloroquine Sulfate (Plaquenil) 200 mg PO DAILY [facility]; Protocol Last Admin: 11/26/18 09:42 Dose: 200 mg Heparin Sodium/Sodium Chloride (Heparin 17800 Units/250ml 1/2 Normal Saline) 25,000 units in 250 mls @ 6.532 mls/hr IV .Q24H [facility]; Protocol PRN Reason: ADJUST RATE PER PROTOCOL Last Admin: 11/26/18 07:46 Dose: 9 units/kg/hr, 6.532 mls/hr Insulin Human Regular (Novolin R) 0 unit SC ACHS [facility]; Protocol Last Admin: 11/26/18 17:17 Dose: Not Given Levothyroxine Sodium (Synthroid) 88 mcg PO DAILY@0630 [facility] Last Admin: 11/26/18 06:08 Dose: 88 mcg Lidocaine (Lidoderm) 1 ea TD DAILY [facility] Last Admin: 11/26/18 12:28 Dose: 1 ea Losartan Potassium (Cozaar) 100 mg PO DAILY [facility] Last Admin: 11/26/18 09:42 Dose: 100 mg Metoclopramide HCl (Reglan) 5 mg PO ACTID [facility] Last Admin: 11/26/18 16:30 Dose: 5 mg Metoprolol Tartrate (Lopressor) 50 mg PO BID [facility] Last Admin: 11/26/18 17:18 Dose: Not Given Rosuvastatin Calcium (Crestor) 20 mg PO HS [facility] Last Admin: 11/25/18 22:30 Dose: 20 mg Spironolactone (Aldactone) 25 mg PO BID [facility] Last Admin: 11/26/18 17:17 Dose: 25 mg - Labs Labs: 11/26/18 06:12 11/26/18 06:09 PT 13.4 SECONDS (9.7-12.2) H 11/24/18 17:12 INR 1.2 11/24/18 17:12 APTT 46.0 SECONDS (21-34) H 11/26/18 08:01
--- NOTE | 2018-11-26 21:25 | CP.PCM.PN ---
Subjective - Date & Time of Evaluation Date of Evaluation: 11/26/18 Time of Evaluation: 16:20 - Subjective Subjective: Patient seen and evaluated in ICU Says chest pain improved and breathing is better Review Of Systems Constitutional: Negative for: Fever, Chills Cardiovascular: Positive for: Chest Pain Respiratory: Positive for: Shortness of Breath Gastrointestinal: Positive for: Abdominal Pain. Negative for: Nausea, Vomiting, Diarrhea Genitourinary: Negative for: Dysuria, Frequency, Hematuria Musculoskeletal: Positive for: Other (b/l extremity swelling ) Skin: Negative for: Rash Neurological: Negative for: Weakness, Numbness Physical Exam - Physical Exam Appears: Non-toxic, No Acute Distress Skin: Warm, Dry Head: Normacephalic Eye(s): bilateral: EOMI Chest: Symmetrical Cardiovascular: Rhythm Regular Respiratory: Rhonchi (b/l bases) Gastrointestinal/Abdominal: Bowel Sounds (normal), Soft, Tenderness (epigastric ) Back: No CVA Tenderness Extremity: Tenderness (b/l lower extremity ), No Pedal Edema, No Calf Tenderness, Capillary Refill (<2 sec), No Deformity, Swelling (b/l lower extremity ) Neurological/Psych: Oriented x3, Normal Speech Objective - Vital Signs/Intake and Output Vital Signs (last 24 hours): Temp Pulse Resp BP Pulse Ox 97.9 F 65 21 159/66 H 100 11/26/18 20:00 11/26/18 20:00 11/26/18 20:00 11/26/18 20:00 11/26/18 20:00 Intake and Output: 11/26/18 11/27/18 18:59 06:59 Intake Total 1091.5 169.5 Output Total 1000 Balance 91.5 169.5 - Medications Medications: Current Medications Acetylcysteine (Acetylcysteine 20%) 6 ml PO Q12H [facility] Stop: 11/27/18 20:01 Last Admin: 11/26/18 19:15 Dose: 6 ml Albuterol Sulfate (Albuterol 0.083% Inhal Sophie (2.5 Mg/3 Ml) Ud) 2.5 mg INH RBID PRN PRN Reason: Wheezing Last Admin: 11/26/18 19:15 Dose: 2.5 mg Arformoterol Tartrate (Brovana) 15 mcg INH RQ12 [facility] Last Admin: 11/26/18 07:37 Dose: 15 mcg Aspirin (Ecotrin) 81 mg PO DAILY [facility] Last Admin: 11/26/18 09:42 Dose: 81 mg Budesonide (Pulmicort Respules) 0.25 mg INH RQ12 [facility] Last Admin: 11/26/18 19:15 Dose: 0.25 mg Clopidogrel Bisulfate (Plavix) 75 mg PO DAILY [facility] Last Admin: 11/26/18 09:42 Dose: 75 mg Ergocalciferol (Drisdol 50,000 Intl Units Cap) 1 cap PO Q7D [facility] Stop: 12/17/18 10:01 Last Admin: 11/26/18 09:41 Dose: 1 cap Famotidine (Pepcid) 20 mg PO BID [facility] Last Admin: 11/26/18 17:17 Dose: 20 mg Furosemide (Lasix) 40 mg IVP DAILY [facility] Last Admin: 11/26/18 09:43 Dose: 40 mg Glimepiride (Amaryl) 2 mg PO DAILY [facility] Last Admin: 11/26/18 09:42 Dose: 2 mg Hydroxychloroquine Sulfate (Plaquenil) 200 mg PO DAILY [facility]; Protocol Last Admin: 11/26/18 09:42 Dose: 200 mg Heparin Sodium/Sodium Chloride (Heparin 74977 Units/250ml 1/2 Normal Saline) 25,000 units in 250 mls @ 6.532 mls/hr IV .Q24H [facility]; Protocol PRN Reason: ADJUST RATE PER PROTOCOL Last Admin: 11/26/18 07:46 Dose: 9 units/kg/hr, 6.532 mls/hr Insulin Human Regular (Novolin R) 0 unit SC ACHS [facility]; Protocol Last Admin: 11/26/18 17:17 Dose: Not Given Levothyroxine Sodium (Synthroid) 88 mcg PO DAILY@0630 [facility] Last Admin: 11/26/18 06:08 Dose: 88 mcg Lidocaine (Lidoderm) 1 ea TD DAILY [facility] Last Admin: 11/26/18 12:28 Dose: 1 ea Losartan Potassium (Cozaar) 100 mg PO DAILY [facility] Last Admin: 11/26/18 09:42 Dose: 100 mg Metoclopramide HCl (Reglan) 5 mg PO ACTID [facility] Last Admin: 11/26/18 16:30 Dose: 5 mg Metoprolol Tartrate (Lopressor) 50 mg PO BID [facility] Last Admin: 11/26/18 17:18 Dose: Not Given Rosuvastatin Calcium (Crestor) 20 mg PO HS [facility] Last Admin: 11/25/18 22:30 Dose: 20 mg Spironolactone (Aldactone) 25 mg PO BID [facility] Last Admin: 11/26/18 17:17 Dose: 25 mg - Labs Labs: 11/26/18 06:12 11/26/18 06:09 PT 13.4 SECONDS (9.7-12.2) H 11/24/18 17:12 INR 1.2 11/24/18 17:12 APTT 46.0 SECONDS (21-34) H 11/26/18 08:01 Assessment and Plan - Assessment and Plan (Free Text) Assessment: 68 F with Acute Coronary syndrome Elevated Troponin Lateral ST depression CAD s/p CABG x 3 (2011) DM2 HTN Hyperlipidemia ASA, Plavix, IV Heparin, Statins, B blockers ECHO Cardiac Cath tomorrow at 4pm NPO after 12pm (Light lunch can be given prior to 12 noon) ICU observation
--- NOTE | 2018-11-26 22:35 | CP.PCM.PN ---
Subjective - Date & Time of Evaluation Date of Evaluation: 11/26/18 Time of Evaluation: 22:30 - Subjective Subjective: Patient with some dyspnea on movement but otherwise has been comfortable per nursing staff; Objective - Vital Signs/Intake and Output Vital Signs (last 24 hours): Temp Pulse Resp BP Pulse Ox 97.9 F 64 21 159/66 H 100 11/26/18 20:00 11/26/18 22:00 11/26/18 22:00 11/26/18 20:00 11/26/18 22:00 Intake and Output: 11/26/18 11/27/18 18:59 06:59 Intake Total 1091.5 282.5 Output Total 1000 Balance 91.5 282.5 - Medications Medications: Current Medications Acetylcysteine (Acetylcysteine 20%) 6 ml PO Q12H [facility] Stop: 11/27/18 20:01 Last Admin: 11/26/18 19:15 Dose: 6 ml Albuterol Sulfate (Albuterol 0.083% Inhal Sophie (2.5 Mg/3 Ml) Ud) 2.5 mg INH RBID PRN PRN Reason: Wheezing Last Admin: 11/26/18 19:15 Dose: 2.5 mg Arformoterol Tartrate (Brovana) 15 mcg INH RQ12 [facility] Last Admin: 11/26/18 22:02 Dose: 15 mcg Aspirin (Ecotrin) 81 mg PO DAILY [facility] Last Admin: 11/26/18 09:42 Dose: 81 mg Budesonide (Pulmicort Respules) 0.25 mg INH RQ12 [facility] Last Admin: 11/26/18 19:15 Dose: 0.25 mg Clopidogrel Bisulfate (Plavix) 75 mg PO DAILY [facility] Last Admin: 11/26/18 09:42 Dose: 75 mg Ergocalciferol (Drisdol 50,000 Intl Units Cap) 1 cap PO Q7D [facility] Stop: 12/17/18 10:01 Last Admin: 11/26/18 09:41 Dose: 1 cap Famotidine (Pepcid) 20 mg PO BID [facility] Last Admin: 11/26/18 17:17 Dose: 20 mg Furosemide (Lasix) 40 mg IVP DAILY [facility] Last Admin: 11/26/18 09:43 Dose: 40 mg Glimepiride (Amaryl) 2 mg PO DAILY [facility] Last Admin: 11/26/18 09:42 Dose: 2 mg Hydroxychloroquine Sulfate (Plaquenil) 200 mg PO DAILY [facility]; Protocol Last Admin: 11/26/18 09:42 Dose: 200 mg Heparin Sodium/Sodium Chloride (Heparin 57082 Units/250ml 1/2 Normal Saline) 25,000 units in 250 mls @ 6.532 mls/hr IV .Q24H [facility]; Protocol PRN Reason: ADJUST RATE PER PROTOCOL Last Admin: 11/26/18 07:46 Dose: 9 units/kg/hr, 6.532 mls/hr Insulin Human Regular (Novolin R) 0 unit SC ACHS [facility]; Protocol Last Admin: 11/26/18 21:26 Dose: Not Given Levothyroxine Sodium (Synthroid) 88 mcg PO DAILY@0630 [facility] Last Admin: 11/26/18 06:08 Dose: 88 mcg Lidocaine (Lidoderm) 1 ea TD DAILY [facility] Last Admin: 11/26/18 12:28 Dose: 1 ea Losartan Potassium (Cozaar) 100 mg PO DAILY [facility] Last Admin: 11/26/18 09:42 Dose: 100 mg Metoclopramide HCl (Reglan) 5 mg PO ACTID [facility] Last Admin: 11/26/18 16:30 Dose: 5 mg Metoprolol Tartrate (Lopressor) 50 mg PO BID [facility] Last Admin: 11/26/18 17:18 Dose: Not Given Rosuvastatin Calcium (Crestor) 20 mg PO HS [facility] Last Admin: 11/26/18 21:22 Dose: 20 mg Spironolactone (Aldactone) 25 mg PO BID [facility] Last Admin: 11/26/18 17:17 Dose: 25 mg - Labs Labs: 11/26/18 06:12 11/26/18 06:09 PT 13.4 SECONDS (9.7-12.2) H 11/24/18 17:12 INR 1.2 11/24/18 17:12 APTT 46.0 SECONDS (21-34) H 11/26/18 08:01 - Constitutional Appears: Non-toxic, No Acute Distress - Respiratory Exam Respiratory Exam: absent: Respiratory Distress - Psychiatric Exam Psychiatric exam: absent: Agitated Assessment and Plan (1) CHF (congestive heart failure) Assessment & Plan: Acute decompensated CHF; awaiting echo; continue with lasix 40 mg IV daily for now, adding aldactone 25 mg bid for added ESTELLE blockade and to offset alkalosis; Status: Acute (2) Renal insufficiency Assessment & Plan: Relatively mild renal insufficiency; is risk factor for contrast nephropathy; will recommend to to placed on IVF with NS at 75 cc/hr for 6 hrs prior to cardiac cath for contrast prophylaxis (cath scheduled for tomorrow afternoon); continue NAC; Status: Chronic (3) HTN (hypertension) Assessment & Plan: BP relatively controlled, elevated at times; continue current meds including losartan 100 mg daily; Status: Acute
--- NOTE | 2018-11-27 03:18 | PN ---
DATE: 11/26/2018 SUBJECTIVE: The patient is feeling better. No chest pain. No shortness of breath. No cough. No fever. No nausea or vomiting. She is on heparin drip and PTT is therapeutic. PHYSICAL EXAMINATION: VITAL SIGNS: Blood pressure 159/66, pulse 65, respiratory rate 21, temperature 97.9. LUNGS: Bilateral basal crepitation. CARDIOVASCULAR SYSTEM: S1, S2, regular. ABDOMEN: Soft, nontender. Bowel sounds are positive. ASSESSMENT: 1. Acute congestive heart failure. 2. Acute myocardial infarction. 3. Type 2 diabetes. 4. Hypertension. PLAN: Continue heparin drip. Intensive care unit. Monitor the patient. Abdiel Baca MD
[2018-11-27 05:13] LABS: ALB/GLOB RATIO 0.9 (1.0-2.1); ALBUMIN 3.6 g/dL (3.5-5.0); CALCIUM 9.3 mg/dl (8.6-10.4)
[2018-11-27 05:25] LABS: BASO # 0.1 K/uL (0.0-0.2); BASO % 0.7 % (0.0-2.0); EOS # 0.1 K/uL (0.0-0.7); EOS % 1.8 % (0.0-4.0); HEMOGLOBIN 10.6 g/dL (11.0-16.0); LYMPH # 1.6 K/uL (1.0-4.3); LYMPH % 20.1 % (20.0-40.0); MEAN CELL VOLUME 84.2 fL (81.0-99.0); MEAN CORPUSCULAR HEMOGLOBIN 28.1 pg (27.0-31.0); MEAN CORPUSCULAR HGB CONC 33.4 g/dL (33.0-37.0); MEAN PLATELET VOLUME 8.2 fL (7.2-11.7); MONO # 0.6 K/uL (0.0-0.8); MONO % 8.2 % (0.0-10.0); NEUT # 5.4 K/uL (1.8-7.0); NEUT % 69.2 % (50.0-75.0); NRBC % 0.1 % (0.0-2.0); RBC 3.75 Mil/uL (3.80-5.20); RED CELL DISTRIBUTION WIDTH 15.4 % (11.5-14.5); WHITE BLOOD COUNT 7.8 K/uL (4.8-10.8)
[2018-11-27] MEDS: Levothyroxine 88 MCG TAB PO SCH (06:19)
[2018-11-27] MEDS: Albuterol 0.083% Inhal Sol (2.5 mg/3 mL) UD INH PRN (08:35)
[2018-11-27] MEDS: (Novolin R) Insulin Human Regular 100 units/ml vial SC SCH ×4 (08:49→22:00)
[2018-11-27] MEDS: Acetylcysteine 20% Inhal Soln (4ml) PO SCH ×3 (08:56→20:52)
[2018-11-27] MEDS: Lidocaine 5% Patch TD SCH (09:16)
[2018-11-27] MEDS ORDERED: Sodium Chloride 0.9% 500 ML IV SCH (10:00)
[2018-11-27] MEDS ORDERED: Iodixanol 320 MG/ML 100 ML BOTTLE IV ONE ×2 (16:07→18:22)
[2018-11-27] MEDS ORDERED: Lidocaine 2% MPF (5 ml) Inj ONE ×2 (16:07→18:37)
--- NOTE | 2018-11-27 17:33 | CP.PCM.PN ---
Subjective - Date & Time of Evaluation Date of Evaluation: 11/27/18 Time of Evaluation: 09:30 - Subjective Subjective: Nephro Progress Note for Dr. Alejandro Cruz DO, PGY-3 Patient seen and examined at bedside in ICU. Currently sitting in chair, without supplemental O2, no acute distress. Reports some baseline midline chest discomfort and shortness of breath. Denies dysuria, hematuria, urinary frequency. Pending Cardiac cath at 4pm today, will hydrate with NS at 75cc/hr for 6 hrs prior to ppx against GUIDO. Objective - Vital Signs/Intake and Output Vital Signs (last 24 hours): Temp Pulse Resp BP Pulse Ox 97.2 F L 70 13 160/86 H 97 11/27/18 12:00 11/27/18 12:32 11/27/18 12:32 11/27/18 12:32 11/27/18 12:32 Intake and Output: 11/27/18 11/27/18 06:59 18:59 Intake Total 434.5 69.5 Balance 434.5 69.5 - Medications Medications: Current Medications Acetylcysteine (Acetylcysteine 20%) 6 ml PO Q12H [facility] Stop: 11/27/18 20:01 Last Admin: 11/27/18 08:56 Dose: 6 ml Albuterol Sulfate (Albuterol 0.083% Inhal Sophie (2.5 Mg/3 Ml) Ud) 2.5 mg INH RBID PRN PRN Reason: Wheezing Last Admin: 11/27/18 08:35 Dose: 2.5 mg Arformoterol Tartrate (Brovana) 15 mcg INH RQ12 [facility] Last Admin: 11/26/18 22:02 Dose: 15 mcg Aspirin (Ecotrin) 81 mg PO DAILY [facility] Last Admin: 11/27/18 09:16 Dose: 81 mg Budesonide (Pulmicort Respules) 0.25 mg INH RQ12 [facility] Last Admin: 11/26/18 19:15 Dose: 0.25 mg Clopidogrel Bisulfate (Plavix) 75 mg PO DAILY [facility] Last Admin: 11/27/18 09:16 Dose: 75 mg Ergocalciferol (Drisdol 50,000 Intl Units Cap) 1 cap PO Q7D [facility] Stop: 12/17/18 10:01 Last Admin: 11/26/18 09:41 Dose: 1 cap Famotidine (Pepcid) 20 mg PO BID [facility] Last Admin: 11/27/18 09:16 Dose: 20 mg Furosemide (Lasix) 40 mg IVP DAILY [facility] Last Admin: 11/26/18 09:43 Dose: 40 mg Glimepiride (Amaryl) 2 mg PO DAILY [facility] Last Admin: 11/27/18 09:16 Dose: 2 mg Hydroxychloroquine Sulfate (Plaquenil) 200 mg PO DAILY [facility]; Protocol Last Admin: 11/26/18 09:42 Dose: 200 mg Heparin Sodium/Sodium Chloride (Heparin 83032 Units/250ml 1/2 Normal Saline) 25,000 units in 250 mls @ 6.532 mls/hr IV .Q24H [facility]; Protocol PRN Reason: ADJUST RATE PER PROTOCOL Last Admin: 11/26/18 07:46 Dose: 9 units/kg/hr, 6.532 mls/hr Insulin Human Regular (Novolin R) 0 unit SC ACHS [facility]; Protocol Last Admin: 11/27/18 11:09 Dose: Not Given Levothyroxine Sodium (Synthroid) 88 mcg PO DAILY@0630 [facility] Last Admin: 11/27/18 06:19 Dose: 88 mcg Lidocaine (Lidoderm) 1 ea TD DAILY [facility] Last Admin: 11/27/18 09:16 Dose: 1 ea Losartan Potassium (Cozaar) 100 mg PO DAILY [facility] Last Admin: 11/27/18 09:16 Dose: 100 mg Metoclopramide HCl (Reglan) 5 mg PO ACTID [facility] Last Admin: 11/27/18 11:09 Dose: Not Given Metoprolol Tartrate (Lopressor) 50 mg PO BID [facility] Last Admin: 11/27/18 09:16 Dose: 50 mg Rosuvastatin Calcium (Crestor) 20 mg PO HS [facility] Last Admin: 11/26/18 21:22 Dose: 20 mg Spironolactone (Aldactone) 25 mg PO BID [facility] Last Admin: 11/26/18 17:17 Dose: 25 mg - Labs Labs: 11/27/18 04:49 11/27/18 04:49 PT 13.4 SECONDS (9.7-12.2) H 11/24/18 17:12 INR 1.2 11/24/18 17:12 APTT 49.0 SECONDS (21-34) H 11/27/18 04:49 - Constitutional Appears: Non-toxic, No Acute Distress - Head Exam Head Exam: ATRAUMATIC, NORMAL INSPECTION, NORMOCEPHALIC - Eye Exam Eye Exam: Normal appearance. absent: Conjunctival injection, Scleral icterus - ENT Exam ENT Exam: Mucous Membranes Moist - Neck Exam Neck Exam: Full ROM - Respiratory Exam Respiratory Exam: Clear to Ausculation Bilateral, NORMAL BREATHING PATTERN. absent: Accessory Muscle Use, Chest Wall Tenderness, Decreased Breath Sounds, Rales, Rhonchi, Wheezes - Cardiovascular Exam Cardiovascular Exam: REGULAR RHYTHM, RRR, +S1, +S2. absent: Bradycardia, Tachycardia, Irregular Rhythm, JVD, +S4 - GI/Abdominal Exam GI & Abdominal Exam: Soft, Normal Bowel Sounds. absent: Distended, Firm, Guarding, Rigid, Tenderness, Diminished Bowel Sounds, Hyperactive Bowel Sounds, Hypoactive Bowel Sounds - Extremities Exam Extremities Exam: Pedal Edema (+1-2 pitting edema from feet to mid-shins bilaterally), Tenderness. absent: Calf Tenderness - Neurological Exam Additional comments: awake and alert, following all commands appropriately moving all extremities spontaneously and on command motor grossly intact and equal bilaterally - Psychiatric Exam Psychiatric exam: Normal Affect, Normal Mood - Skin Skin Exam: Dry, Intact, Normal Color, Warm Assessment and Plan - Assessment and Plan (Free Text) Assessment: This is a 68 yo F with PMH of DM, HTN, RA, SLE, GERD, and CAD s/p CABG who presented with complaints of SOB, abd pain, and exertional chest pain x1 week, and was found to have NSTEMI. Nephro was consulted for ORTEGA. Pending Cardiac Cath today. Plan: 1) acute onset CHF 2) ORTEGA 3) NSTEMI 4) HTN 5) DM 6) Hx SLE 7) Hypothyroidism -Cr remains 1.1, stable Pending cardiac cath today, risk for GUIDO, but benefits outweigh risks; ppx with NS IVF at 75cc/hr for 6 hrs prior to procedure -Improved but still present fluid overload, continue aldactone and lasix -Continue home SLE management -Continue current BP management -Continue home synthroid Seen, reviewed, and discussed with attending, Dr. Allen.
[2018-11-27] MEDS ORDERED: Midazolam 2 MG/2 ML VIAL ONE (18:05)
--- NOTE | 2018-11-27 18:54 | CP.PCM.PN ---
Subjective - Date & Time of Evaluation Date of Evaluation: 11/27/18 Time of Evaluation: 18:46 - Subjective Subjective: Patient s/p cardiac Cath 1. L Main: Short and patent 2. LAD: Proximal to mid long 90%, Distal 100% 3. L Cx: Proximal 95%, Distal 100% 4. RCA: Prox 100% 5. DAILEY to LAD: patent 6. Grafts to L Cx and RCA: Occluded 7. Dialated LV with EF of 20%, EDP 52, No AV gradient A/P: 1. 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 Single patent graft (DAILEY to LAD) 3. Severely elevated LV EDP 4. 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 Objective - Vital Signs/Intake and Output Vital Signs (last 24 hours): Temp Pulse Resp BP Pulse Ox 97.2 F L 70 13 160/86 H 97 11/27/18 12:00 11/27/18 12:32 11/27/18 12:32 11/27/18 12:32 11/27/18 12:32 Intake and Output: 11/27/18 11/27/18 06:59 18:59 Intake Total 434.5 339.5 Balance 434.5 339.5 - Medications Medications: Current Medications Acetylcysteine (Acetylcysteine 20%) 6 ml PO Q12H [facility] Stop: 11/27/18 20:01 Last Admin: 11/27/18 08:56 Dose: 6 ml Albuterol Sulfate (Albuterol 0.083% Inhal Sophie (2.5 Mg/3 Ml) Ud) 2.5 mg INH RBID PRN PRN Reason: Wheezing Last Admin: 11/27/18 08:35 Dose: 2.5 mg Arformoterol Tartrate (Brovana) 15 mcg INH RQ12 [facility] Last Admin: 11/26/18 22:02 Dose: 15 mcg Aspirin (Ecotrin) 81 mg PO DAILY [facility] Last Admin: 11/27/18 09:16 Dose: 81 mg Budesonide (Pulmicort Respules) 0.25 mg INH RQ12 [facility] Last Admin: 11/26/18 19:15 Dose: 0.25 mg Clopidogrel Bisulfate (Plavix) 75 mg PO DAILY [facility] Last Admin: 11/27/18 09:16 Dose: 75 mg Enoxaparin Sodium (Lovenox) 40 mg SC DAILY [facility] Ergocalciferol (Drisdol 50,000 Intl Units Cap) 1 cap PO Q7D [facility] Stop: 12/17/18 10:01 Last Admin: 11/26/18 09:41 Dose: 1 cap Famotidine (Pepcid) 20 mg PO BID [facility] Last Admin: 11/27/18 18:26 Dose: Not Given Furosemide (Lasix) 40 mg IVP DAILY [facility] Last Admin: 11/26/18 09:43 Dose: 40 mg Glimepiride (Amaryl) 2 mg PO DAILY [facility] Last Admin: 11/27/18 09:16 Dose: 2 mg Hydroxychloroquine Sulfate (Plaquenil) 200 mg PO DAILY [facility]; Protocol Last Admin: 11/27/18 18:25 Dose: Not Given Insulin Human Regular (Novolin R) 0 unit SC [facility]; Protocol Last Admin: 11/27/18 18:25 Dose: Not Given Levothyroxine Sodium (Synthroid) 88 mcg PO DAILY@0630 [facility] Last Admin: 11/27/18 06:19 Dose: 88 mcg Lidocaine (Lidoderm) 1 ea TD DAILY [facility] Last Admin: 11/27/18 09:16 Dose: 1 ea Losartan Potassium (Cozaar) 100 mg PO DAILY [facility] Last Admin: 11/27/18 09:16 Dose: 100 mg Metoclopramide HCl (Reglan) 5 mg PO ACTID [facility] Last Admin: 11/27/18 18:26 Dose: Not Given Metoprolol Tartrate (Lopressor) 50 mg PO BID [facility] Last Admin: 11/27/18 18:26 Dose: Not Given Rosuvastatin Calcium (Crestor) 20 mg PO HS [facility] Last Admin: 11/26/18 21:22 Dose: 20 mg Spironolactone (Aldactone) 25 mg PO BID [facility] Last Admin: 11/26/18 17:17 Dose: 25 mg - Labs Labs: 11/27/18 04:49 11/27/18 04:49 PT 13.4 SECONDS (9.7-12.2) H 11/24/18 17:12 INR 1.2 11/24/18 17:12 APTT 49.0 SECONDS (21-34) H 11/27/18 04:49
--- NOTE | 2018-11-27 19:11 | CARD ---
APPROVED REPORT Date of service: 11/27/2018 EXAM: Two-dimensional and M-mode echocardiogram with Doppler and color Doppler. Other Information Quality : GoodRhythm : INDICATION Acute IA Congestive Heart Failure COPD Surgery/Intervention CABG: RISK FACTORS Hypertension Hyperlipidemia 2D DIMENSIONS IVSd0.9 (0.7-1.1cm)LVDd5.0 (3.9-5.9cm) PWd0.7 (0.7-1.1cm)LA Jcoepd17 (18-58mL) LVDs4.7 (2.5-4.0cm)FS (%) 6.4 % LVEF (%)24.3 (>50%)LVEF (Gann's)23 % M-Mode DIMENSIONS Left Atrium (MM)4.03 (2.5-4.0cm)IVSd1.00 (0.7-1.1cm) Aortic Root3.28 (2.2-3.7cm)LVDd5.12 (4.0-5.6cm) Aortic Cusp Exc.1.94 (1.5-2.0cm)PWd0.64 (0.7-1.1cm) FS (%) 13 %LVDs4.47 (2.0-3.8cm) LVEF (%)27 (>50%) Mitral Valve MV E Xwtqfwkr782.1cm/sMV A Uucaeimp295.6cm/sE/A ratio1.1 DSWJ578.65 cm/s TDI Lateral E' Peak V4.22cm/sMedial E' Peak V3.32cm/sE/Lateral E'31.8 E/Medial E'40.4 Tricuspid Valve TR Peak Vwjambyx719us/sTR Peak Gr.21ogIuHRPN16nmMv LEFT VENTRICLE The Left Ventricle is borderline dilated. There is normal left ventricular wall thickness. Left ventricle systolic function is severely impaired. The Ejection Fraction is 30-35%. There is global hypokinesis of the left ventricle. Transmitral Doppler flow pattern is Grade II-pseudonormal filling dynamics. elevated LVEDP. There is no ventricular septal defect visualized. RIGHT VENTRICLE The right ventricle is normal size. The right ventricular systolic function is normal. ATRIA The left atrium is mildly dilated. The right atrium is mildly dilated. AORTIC VALVE The aortic valve is mildly sclerotic. The aortic valve is tri-cuspid. No aortic regurgitation is present. There is no aortic valvular stenosis. MITRAL VALVE The mitral valve is normal in structure. Mitral annular calcification is mild. There is no evidence of mitral valve prolapse. Mitral regurgitation is mild. ERO 0.2 cm2 TRICUSPID VALVE The tricuspid valve is normal in structure. There is mild to moderate tricuspid regurgitation. Right ventricular systolic pressure is estimated at 50-60 mmHg. There is moderate-severe pulmonary hypertension. PULMONIC VALVE The pulmonic valve is not well visualized. There is no pulmonic valvular regurgitation. GREAT VESSELS The aortic root is normal in size. The ascending aorta is normal in size. The IVC is normal in size and collapses >50% with inspiration. PERICARDIAL EFFUSION There is no pericardial effusion. <Conclusion> Left ventricle systolic function is severely impaired. The Ejection Fraction is 30-35%. There is global hypokinesis of the left ventricle. Transmitral Doppler flow pattern is Grade II-pseudonormal filling dynamics. elevated LVEDP. Mitral regurgitation is mild. ERO 0.2 cm2 There is moderate-severe pulmonary hypertension.
[2018-11-27] MEDS: Budesonide 0.25 mg/2 ml Inhal Susp UD INH SCH (20:24)
[2018-11-27] MEDS: Arformoterol 15 mcg/2 ml Inh Sol INH SCH (20:25)
--- NOTE | 2018-11-27 20:27 | CP.PCM.PN ---
Subjective - Date & Time of Evaluation Date of Evaluation: 11/27/18 Time of Evaluation: 09:00 - Subjective Subjective: dict Objective - Vital Signs/Intake and Output Vital Signs (last 24 hours): Temp Pulse Resp BP Pulse Ox 97.2 F L 89 27 H 138/65 97 11/27/18 12:00 11/27/18 19:45 11/27/18 19:45 11/27/18 19:45 11/27/18 12:32 Intake and Output: 11/27/18 11/28/18 18:59 06:59 Intake Total 339.5 Balance 339.5 - Medications Medications: Current Medications Albuterol Sulfate (Albuterol 0.083% Inhal Sophie (2.5 Mg/3 Ml) Ud) 2.5 mg INH RBID PRN PRN Reason: Wheezing Last Admin: 11/27/18 08:35 Dose: 2.5 mg Arformoterol Tartrate (Brovana) 15 mcg INH RQ12 [facility] Last Admin: 11/27/18 20:25 Dose: 15 mcg Aspirin (Ecotrin) 81 mg PO DAILY [facility] Last Admin: 11/27/18 09:16 Dose: 81 mg Budesonide (Pulmicort Respules) 0.25 mg INH RQ12 [facility] Last Admin: 11/27/18 20:24 Dose: 0.25 mg Clopidogrel Bisulfate (Plavix) 75 mg PO DAILY [facility] Last Admin: 11/27/18 09:16 Dose: 75 mg Enoxaparin Sodium (Lovenox) 40 mg SC DAILY [facility] Ergocalciferol (Drisdol 50,000 Intl Units Cap) 1 cap PO Q7D [facility] Stop: 12/17/18 10:01 Last Admin: 11/26/18 09:41 Dose: 1 cap Famotidine (Pepcid) 20 mg PO BID [facility] Last Admin: 11/27/18 18:26 Dose: Not Given Furosemide (Lasix) 40 mg IVP BID [facility] Glimepiride (Amaryl) 2 mg PO DAILY [facility] Last Admin: 11/27/18 09:16 Dose: 2 mg Hydroxychloroquine Sulfate (Plaquenil) 200 mg PO DAILY [facility]; Protocol Last Admin: 11/27/18 18:25 Dose: Not Given Insulin Human Regular (Novolin R) 0 unit SC [facility]; Protocol Last Admin: 11/27/18 18:25 Dose: Not Given Levothyroxine Sodium (Synthroid) 88 mcg PO DAILY@0630 [facility] Last Admin: 11/27/18 06:19 Dose: 88 mcg Lidocaine (Lidoderm) 1 ea TD DAILY [facility] Last Admin: 11/27/18 09:16 Dose: 1 ea Losartan Potassium (Cozaar) 100 mg PO DAILY [facility] Last Admin: 11/27/18 09:16 Dose: 100 mg Metoclopramide HCl (Reglan) 5 mg PO ACTID [facility] Last Admin: 11/27/18 18:26 Dose: Not Given Metoprolol Tartrate (Lopressor) 50 mg PO BID [facility] Last Admin: 11/27/18 18:26 Dose: Not Given Rosuvastatin Calcium (Crestor) 20 mg PO HS [facility] Last Admin: 11/26/18 21:22 Dose: 20 mg Spironolactone (Aldactone) 25 mg PO BID [facility] Last Admin: 11/26/18 17:17 Dose: 25 mg - Labs Labs: 11/27/18 04:49 11/27/18 04:49 PT 13.4 SECONDS (9.7-12.2) H 11/24/18 17:12 INR 1.2 11/24/18 17:12 APTT 49.0 SECONDS (21-34) H 11/27/18 04:49
--- NOTE | 2018-11-28 01:53 | PN ---
DATE: 11/27/2018 SUBJECTIVE: The patient is status post cardiac cath, two of three grafts are clogged. Low LV ejection of 24%. She is afebrile. Less short of breath. Less cough. Less wheezing. She is on diuretics with increase in diastolic pressure. PHYSICAL EXAMINATION: VITAL SIGNS: Blood pressure 128/62, pulse 64, respiratory rate 18, and temperature 98. LUNGS: Bilateral rales. CARDIOVASCULAR SYSTEM: S1 and S2, plus S3 positive. ABDOMEN: Soft. ASSESSMENT: 1. Severe ischemic dilated cardiomyopathy. 2. 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 3. Diabetes. 4. Hypertension. PLAN: The patient is for transfer to [facility] tomorrow. Monitor the patient. Abdiel Baca MD
[2018-11-28] MEDS: Levothyroxine 88 MCG TAB PO SCH (06:23)
[2018-11-28] MEDS: (Novolin R) Insulin Human Regular 100 units/ml vial SC SCH ×4 (07:30→22:06)
[2018-11-28] MEDS: Budesonide 0.25 mg/2 ml Inhal Susp UD INH SCH ×2 (07:45→19:47)
[2018-11-28] MEDS: Albuterol 0.083% Inhal Sol (2.5 mg/3 mL) UD INH PRN (07:45)
[2018-11-28] MEDS: Arformoterol 15 mcg/2 ml Inh Sol INH SCH ×2 (07:45→19:47)
[2018-11-28 08:57] LABS: BASO % 0.5 % (0.0-2.0); EOS # 0.1 K/uL (0.0-0.7); EOS % 1.6 % (0.0-4.0); LYMPH # 1.9 K/uL (1.0-4.3); LYMPH % 22.2 % (20.0-40.0); MEAN CELL VOLUME 85.1 fL (81.0-99.0); MEAN CORPUSCULAR HGB CONC 32.9 g/dL (33.0-37.0); MEAN PLATELET VOLUME 8.3 fL (7.2-11.7); MONO # 0.7 K/uL (0.0-0.8); MONO % 7.7 % (0.0-10.0); NEUT # 5.9 K/uL (1.8-7.0); RBC 3.93 Mil/uL (3.80-5.20); RED CELL DISTRIBUTION WIDTH 16.1 % (11.5-14.5); WHITE BLOOD COUNT 8.7 K/uL (4.8-10.8)
--- NOTE | 2018-11-28 09:00 | CP.PCM.PN ---
Subjective - Date & Time of Evaluation Date of Evaluation: 11/28/18 Time of Evaluation: 09:15 - Subjective Subjective: Nephro Progress Note for Dr. Alejandro Cruz DO, PGY-3 Patient seen and examined at bedside in ICU. Underwent Cardiac cath yesterday, concerning for occlusion of 2 of 3 graft vessels, complete occlusion of jena 3 vessels, and EF of 20%. Pending transfer to [place] [facility], once a bed is available. Only mild increase in Cr post-cath today (Cr 1.2, was 1.1 yesterday). Objective - Vital Signs/Intake and Output Vital Signs (last 24 hours): Temp Pulse Resp BP Pulse Ox 98.1 F 75 21 153/67 H 100 11/28/18 08:00 11/28/18 08:00 11/28/18 08:00 11/28/18 08:00 11/28/18 08:00 Intake and Output: 11/28/18 11/28/18 06:59 18:59 Intake Total 90 300 Output Total 0 Balance 90 300 - Medications Medications: Current Medications Acetaminophen (Tylenol 325mg Tab) 650 mg PO Q6 PRN PRN Reason: Headache Last Admin: 11/27/18 20:48 Dose: 650 mg Albuterol Sulfate (Albuterol 0.083% Inhal Sophie (2.5 Mg/3 Ml) Ud) 2.5 mg INH RBID PRN PRN Reason: Wheezing Last Admin: 11/27/18 08:35 Dose: 2.5 mg Arformoterol Tartrate (Brovana) 15 mcg INH RQ12 [facility] Last Admin: 11/27/18 20:25 Dose: 15 mcg Aspirin (Ecotrin) 81 mg PO DAILY [facility] Last Admin: 11/27/18 09:16 Dose: 81 mg Budesonide (Pulmicort Respules) 0.25 mg INH RQ12 [facility] Last Admin: 11/27/18 20:24 Dose: 0.25 mg Clopidogrel Bisulfate (Plavix) 75 mg PO DAILY [facility] Last Admin: 11/27/18 09:16 Dose: 75 mg Enoxaparin Sodium (Lovenox) 40 mg SC DAILY [facility] Ergocalciferol (Drisdol 50,000 Intl Units Cap) 1 cap PO Q7D [facility] Stop: 12/17/18 10:01 Last Admin: 11/26/18 09:41 Dose: 1 cap Famotidine (Pepcid) 20 mg PO BID [facility] Last Admin: 11/27/18 18:26 Dose: Not Given Furosemide (Lasix) 40 mg IVP BID [facility] Glimepiride (Amaryl) 2 mg PO DAILY [facility] Last Admin: 11/27/18 09:16 Dose: 2 mg Hydroxychloroquine Sulfate (Plaquenil) 200 mg PO DAILY [facility]; Protocol Last Admin: 11/27/18 18:25 Dose: Not Given Insulin Human Regular (Novolin R) 0 unit SC [facility]; Protocol Last Admin: 11/27/18 22:00 Dose: Not Given Levothyroxine Sodium (Synthroid) 88 mcg PO DAILY@0630 [facility] Last Admin: 11/28/18 06:23 Dose: 88 mcg Lidocaine (Lidoderm) 1 ea TD DAILY [facility] Last Admin: 11/27/18 09:16 Dose: 1 ea Losartan Potassium (Cozaar) 100 mg PO DAILY [facility] Last Admin: 11/27/18 09:16 Dose: 100 mg Metoclopramide HCl (Reglan) 5 mg PO ACTID [facility] Last Admin: 11/27/18 18:26 Dose: Not Given Metoprolol Tartrate (Lopressor) 50 mg PO BID [facility] Last Admin: 11/27/18 18:26 Dose: Not Given Rosuvastatin Calcium (Crestor) 20 mg PO HS [facility] Last Admin: 11/27/18 21:01 Dose: 20 mg Spironolactone (Aldactone) 25 mg PO BID [facility] Last Admin: 11/26/18 17:17 Dose: 25 mg - Labs Labs: 11/27/18 04:49 11/27/18 04:49 PT 13.4 SECONDS (9.7-12.2) H 11/24/18 17:12 INR 1.2 11/24/18 17:12 APTT 49.0 SECONDS (21-34) H 11/27/18 04:49 - Additional Findings Additional findings: - Constitutional Appears: Non-toxic, No Acute Distress - Head Exam Head Exam: ATRAUMATIC, NORMAL INSPECTION, NORMOCEPHALIC - Eye Exam Eye Exam: Normal appearance. absent: Conjunctival injection, Scleral icterus - ENT Exam ENT Exam: Mucous Membranes Moist - Neck Exam Neck Exam: Full ROM - Respiratory Exam Respiratory Exam: Clear to Ausculation Bilateral, NORMAL BREATHING PATTERN. absent: Accessory Muscle Use, Chest Wall Tenderness, Decreased Breath Sounds, Rales, Rhonchi, Wheezes - Cardiovascular Exam Cardiovascular Exam: REGULAR RHYTHM, RRR, +S1, +S2. absent: Bradycardia, Tachycardia, Irregular Rhythm, JVD, +S4 - GI/Abdominal Exam GI & Abdominal Exam: Soft, Normal Bowel Sounds. absent: Distended, Firm, Guarding, Rigid, Tenderness, Diminished Bowel Sounds, Hyperactive Bowel Sounds, Hypoactive Bowel Sounds - Extremities Exam Extremities Exam: Pedal Edema (+1-2 pitting edema from feet to mid-shins flavio aterally), Tenderness. absent: Calf Tenderness - Neurological Exam awake and alert, following all commands appropriately moving all extremities spontaneously and on command motor grossly intact and equal bilaterally - Psychiatric Exam Psychiatric exam: Normal Affect, Normal Mood - Skin Skin Exam: Dry, Intact, Normal Color, Warm Assessment and Plan - Assessment and Plan (Free Text) Assessment: This is a 68 yo F with PMH of DM, HTN, RA, SLE, GERD, and CAD s/p CABG who presented with complaints of SOB, abd pain, and exertional chest pain x1 week, and was found to have NSTEMI. Nephro was consulted for ORTEGA. S/p cardiac cath, now pending transfer to [place] [facility]. 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 and low EF 2) ORTEGA 3) NSTEMI 4) HTN 5) DM 6) Hx SLE 7) Hypothyroidism -Cr 1.2 today, was 1.1 yesterday, continue to monitor At risk for GUIDO s/p cardiac cath, but ppx'ed with IVF 6 hrs prior to cath yesterday, so risk should be reduced -Improved but still present fluid overload, continue aldactone -Continue current BP management -Continue home synthroid -Pending transfer to [place] to Heart Failure unit due to EF 20% in setting of triple vessel dz with 2 of 3 graft vessels occluded Seen, reviewed, and discussed with attending, Dr. Allen.
[2018-11-28] MEDS: Lidocaine 5% Patch TD SCH (09:33)
[2018-11-28] MEDS: Enoxaparin 40 mg Syringe SC SCH (09:37)
[2018-11-28 09:49] LABS: ALB/GLOB RATIO 0.9 (1.0-2.1); ALBUMIN 3.7 g/dL (3.5-5.0); CALCIUM 9.4 mg/dl (8.6-10.4)
--- NOTE | 2018-11-28 13:11 | CARD ---
APPROVED REPORT Date of service: 11/25/2018 EKG Measurement Heart [id number] <Conclusion> Normal sinus rhythm Left axis deviation Anterior infarct, age undetermined Inferior infarct , age undetermined can not be excluded. ST & T wave abnormality, consider inferolateral ischemia Abnormal ECG
--- NOTE | 2018-11-28 18:21 | CP.CCUPN ---
<Jose Lopez - Last Filed: 11/28/18 18:17> CCU Subjective - Physician Review Subjective (Free Text): PGY-1 ICU Progress Note for Dr. Macias Patient seen and examined at bedside. No acute events overnight. Undergoing post-op/pre-op monitoring s/p cath and planning transfer to [facility] pending bed availability. CCU Objective - Vital Signs / Intake & Output Vital Signs (Last 4 hours): Vital Signs Temp Pulse Resp BP Pulse Ox 11/28/18 16:18 76 16 143/57 L 100 11/28/18 16:00 98 F 74 22 143/57 L 100 11/28/18 15:00 71 26 H 100 11/28/18 14:58 71 26 H 154/72 H 100 Intake and Output (Last 8hrs): Intake & Output 11/28/18 11/28/18 11/28/18 06:59 14:59 22:59 Intake Total 90 860 0 Output Total 701 Balance 90 159 0 Intake: Intake, IV Amount 0 0 Left Forearm 0 left forearm 0 Oral 90 860 0 Output: Urine 700 Urine, Voided 700 Stool 1 Other: # Voids Urine, Voided 4 1 # Bowel Movements 0 0 - Physical Exam Head: Positive for: Atraumatic, Normocephalic Pupils: Positive for: PERRL Extroacular Muscles: Positive for: EOMI Respiratory/Chest: Positive for: Clear to Auscultation. Negative for: Respiratory Distress Cardiovascular: Positive for: Regular Rate and Rhythm, Normal S1, S2 Abdomen: Negative for: Tenderness Neurological: Positive for: CN II-XII Intact Skin: Positive for: Warm, Dry Psychiatric: Positive for: Oriented x 3 - Medications Active Medications: Active Medications Generic Name Dose Route Start Last Admin Trade Name Freq PRN Reason Stop Dose Admin Acetaminophen 650 mg 11/27/18 20:25 11/27/18 20:48 Tylenol 325mg Tab PO 650 mg Q6 PRN Administration Headache Albuterol Sulfate 2.5 mg 11/25/18 13:39 11/28/18 07:45 Albuterol 0.083% Inhal Sophie (2.5 Mg/3 Ml) Ud INH 2.5 mg RBID PRN Administration Wheezing Arformoterol Tartrate 15 mcg 11/25/18 14:15 11/28/18 07:45 Brovana INH 15 mcg RQ12 MARY Administration Aspirin 81 mg 11/25/18 10:00 11/27/18 09:16 Ecotrin PO 81 mg DAILY MARY Administration Budesonide 0.25 mg 11/25/18 14:15 11/28/18 07:45 Pulmicort Respules INH 0.25 mg RQ12 MARY Administration Clopidogrel Bisulfate 75 mg 11/25/18 10:00 11/28/18 09:35 Plavix PO 75 mg DAILY MARY Administration Enoxaparin Sodium 40 mg 11/28/18 10:00 11/28/18 09:37 Lovenox SC 40 mg DAILY MARY Administration Ergocalciferol 1 cap 11/26/18 10:00 11/26/18 09:41 Drisdol 50,000 Intl Units Cap PO 12/17/18 10:01 1 cap Q7D MARY Administration Famotidine 20 mg 11/25/18 10:00 11/28/18 09:35 Pepcid PO 20 mg BID MARY Administration Furosemide 40 mg 11/28/18 10:00 11/28/18 09:36 Lasix IVP 40 mg BID MARY Administration Glimepiride 2 mg 11/25/18 10:00 11/28/18 09:34 Amaryl PO 2 mg DAILY MARY Administration Insulin Human Regular 0 unit 11/24/18 22:00 11/28/18 16:58 Novolin R SC 1 u ACHS MARY Administration Protocol Levothyroxine Sodium 88 mcg 11/25/18 06:30 11/28/18 06:23 Synthroid PO 88 mcg DAILY@0630 MARY Administration Lidocaine 1 ea 11/26/18 12:15 11/28/18 09:33 Lidoderm TD 1 ea DAILY MARY Administration Losartan Potassium 100 mg 11/24/18 18:10 11/28/18 09:35 Cozaar PO 100 mg DAILY MARY Administration Metoclopramide HCl 5 mg 11/25/18 07:30 11/28/18 08:00 Reglan PO Not Given ACTID MARY Metoprolol Tartrate 50 mg 11/24/18 23:07 11/28/18 09:35 Lopressor PO 50 mg BID MARY Administration Rosuvastatin Calcium 20 mg 11/24/18 22:00 11/27/18 21:01 Crestor PO 20 mg HS MARY Administration Spironolactone 25 mg 11/26/18 10:00 11/28/18 09:34 Aldactone PO 25 mg BID MARY Administration - Patient Studies Lab Studies: Microbiology Studies 11/27/18 05:46 MRSA Culture (Admit) - Final Naris MRSA NOT DETECTED Lab Studies 11/28/18 11/28/18 11/25/18 Range/Units 08:54 08:54 14:55 WBC 8.7 (4.8-10.8) K/uL RBC 3.93 (3.80-5.20) Mil/uL Hgb 11.0 (11.0-16.0) g/dL Hct 33.5 L (34.0-47.0) % MCV 85.1 (81.0-99.0) fL MCH 28.0 (27.0-31.0) pg MCHC 32.9 L (33.0-37.0) g/dL RDW 16.1 H (11.5-14.5) % Plt Count 273 (130-400) K/uL MPV 8.3 (7.2-11.7) fL Neut % (Auto) 68.0 (50.0-75.0) % Lymph % (Auto) 22.2 (20.0-40.0) % Esmeralda % (Auto) 7.7 (0.0-10.0) % Eos % (Auto) 1.6 (0.0-4.0) % Baso % (Auto) 0.5 (0.0-2.0) % Neut # (Auto) 5.9 (1.8-7.0) K/uL Lymph # (Auto) 1.9 (1.0-4.3) K/uL Esmeralda # (Auto) 0.7 (0.0-0.8) K/uL Eos # (Auto) 0.1 (0.0-0.7) K/uL Baso # (Auto) 0.0 (0.0-0.2) K/uL Sodium 140 (132-148) mmol/L Potassium 4.0 (3.6-5.2) mmol/L Chloride 98 (98-107) mmol/L Carbon Dioxide 31 H (22-30) mmol/L Anion Gap 15 (10-20) BUN 29 H (7-17) mg/dL Creatinine 1.2 (0.7-1.2) mg/dL Est GFR ( Amer) 54 Est GFR (Non-Af Amer) 45 Random Glucose 165 H D (65-105) mg/dL Calcium 9.4 (8.6-10.4) mg/dl Phosphorus 3.4 (2.5-4.5) mg/dL Magnesium 1.9 (1.6-2.3) mg/dL Total Bilirubin 0.4 (0.2-1.3) mg/dL AST 35 (14-36) U/L ALT 29 (9-52) U/L Alkaline Phosphatase 108 (38-126) U/L Total Protein 8.0 (6.3-8.3) g/dL Albumin 3.7 (3.5-5.0) g/dL Globulin 4.3 H (2.2-3.9) gm/dL Albumin/Globulin Ratio 0.9 L (1.0-2.1) U Random Total Protein (21-161) mg/g creat Urine Creatinine 22 (20-275) mg/dL Urine Microalbumin 22.4 mg/dL Microalb/Creat Ratio 1016 H (<30) 11/25/18 Range/Units 14:55 WBC (4.8-10.8) K/uL RBC (3.80-5.20) Mil/uL Hgb (11.0-16.0) g/dL Hct (34.0-47.0) % MCV (81.0-99.0) fL MCH (27.0-31.0) pg MCHC (33.0-37.0) g/dL RDW (11.5-14.5) % Plt Count (130-400) K/uL MPV (7.2-11.7) fL Neut % (Auto) (50.0-75.0) % Lymph % (Auto) (20.0-40.0) % Esmeralda % (Auto) (0.0-10.0) % Eos % (Auto) (0.0-4.0) % Baso % (Auto) (0.0-2.0) % Neut # (Auto) (1.8-7.0) K/uL Lymph # (Auto) (1.0-4.3) K/uL Esmeralda # (Auto) (0.0-0.8) K/uL Eos # (Auto) (0.0-0.7) K/uL Baso # (Auto) (0.0-0.2) K/uL Sodium (132-148) mmol/L Potassium (3.6-5.2) mmol/L Chloride (98-107) mmol/L Carbon Dioxide (22-30) mmol/L Anion Gap (10-20) BUN (7-17) mg/dL Creatinine (0.7-1.2) mg/dL Est GFR ( Amer) Est GFR (Non-Af Amer) Random Glucose (65-105) mg/dL Calcium (8.6-10.4) mg/dl Phosphorus (2.5-4.5) mg/dL Magnesium (1.6-2.3) mg/dL Total Bilirubin (0.2-1.3) mg/dL AST (14-36) U/L ALT (9-52) U/L Alkaline Phosphatase (38-126) U/L Total Protein (6.3-8.3) g/dL Albumin (3.5-5.0) g/dL Globulin (2.2-3.9) gm/dL Albumin/Globulin Ratio (1.0-2.1) U Random Total Protein 1913 H (21-161) mg/g creat Urine Creatinine (20-275) mg/dL Urine Microalbumin mg/dL Microalb/Creat Ratio (<30) Laboratory Results - last 24 hr 11/25/18 11/25/18 11/28/18 14:55 14:55 08:54 WBC 8.7 RBC 3.93 Hgb 11.0 Hct 33.5 L MCV 85.1 MCH 28.0 MCHC 32.9 L RDW 16.1 H Plt Count 273 MPV 8.3 Neut % (Auto) 68.0 Lymph % (Auto) 22.2 Esmeralda % (Auto) 7.7 Eos % (Auto) 1.6 Baso % (Auto) 0.5 Neut # (Auto) 5.9 Lymph # (Auto) 1.9 Esmeralda # (Auto) 0.7 Eos # (Auto) 0.1 Baso # (Auto) 0.0 Sodium Potassium Chloride Carbon Dioxide Anion Gap BUN Creatinine Est GFR ( Amer) Est GFR (Non-Af Amer) Random Glucose Calcium Phosphorus Magnesium Total Bilirubin AST ALT Alkaline Phosphatase Total Protein Albumin Globulin Albumin/Globulin Ratio U Random Total Protein 1913 H Urine Creatinine 22 Urine Microalbumin 22.4 Microalb/Creat Ratio 1016 H 11/28/18 08:54 WBC RBC Hgb Hct MCV MCH MCHC RDW Plt Count MPV Neut % (Auto) Lymph % (Auto) Esmeralda % (Auto) Eos % (Auto) Baso % (Auto) Neut # (Auto) Lymph # (Auto) Esmeralda # (Auto) Eos # (Auto) Baso # (Auto) Sodium 140 Potassium 4.0 Chloride 98 Carbon Dioxide 31 H Anion Gap 15 BUN 29 H Creatinine 1.2 Est GFR ( Amer) 54 Est GFR (Non-Af Amer) 45 Random Glucose 165 H D Calcium 9.4 Phosphorus 3.4 Magnesium 1.9 Total Bilirubin 0.4 AST 35 ALT 29 Alkaline Phosphatase 108 Total Protein 8.0 Albumin 3.7 Globulin 4.3 H Albumin/Globulin Ratio 0.9 L U Random Total Protein Urine Creatinine Urine Microalbumin Microalb/Creat Ratio Fingerstick Blood Sugar Results: 188 Review of Systems - Review of Systems All systems: reviewed and no additional remarkable complaints except Critical Care Progress Note - Nutrition Nutrition: Nutrition Category Date Time Status Heart Healthy Diet [DIET] Diets 11/27/18 Dinner Active Assessment/Plan - Assessment and Plan (Free Text) Assessment: Patient seen and examined at bedside in ICU. Underwent Cardiac cath yesterday, concerning for occlusion of 2 of 3 graft vessels, complete occlusion of [place] 3 vessels, and EF of 20%. Pending transfer to [place] [facility] unit, once a bed is available. Only mild increase in Cr post-cath today. 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 Howard -s/p cardiac cath demonstrating occlusion of 2 of 3 graft vessels, complete occlusion of [place] 3 vessels, and EF of 20% -Pending transfer to [place] -ICU cardiac monitoring -Trops trended -ASA 81, Plavix, Metoprolol, Aldactone Pulm -Monitor CXR for effusions -Lasix 40 IV daily -Maintain spO2>92% Renal ORTEGA -NephDr. Alejandro dawn -Cr improving - 1.2 -Lasix 40 IV BID Endo DM -ISS -Accuchekcs ACHS -Hypoglycemia protocol Assessment and plan d/w Dr. Gilberto Lopez, PGY-1 <Onofre Macias S - Last Filed: 11/28/18 18:58> CCU Subjective - Physician Review Critical Care Time Spent (in minutes): 40 CCU Objective - Vital Signs / Intake & Output Vital Signs (Last 4 hours): Vital Signs Temp Pulse Resp BP Pulse Ox 11/28/18 16:18 76 16 143/57 L 100 11/28/18 16:00 98 F 74 22 143/57 L 100 11/28/18 15:00 71 26 H 100 11/28/18 14:58 71 26 H 154/72 H 100 Intake and Output (Last 8hrs): Intake & Output 11/28/18 11/28/18 11/28/18 06:59 14:59 22:59 Intake Total 90 860 100 Output Total 701 Balance 90 159 100 Intake: Intake, IV Amount 0 0 Left Forearm 0 left forearm 0 Oral 90 860 100 Output: Urine 700 Urine, Voided 700 Stool 1 Other: # Voids Urine, Voided 4 1 # Bowel Movements 0 0 - Medications Active Medications: Active Medications Generic Name Dose Route Start Last Admin Trade Name Freq PRN Reason Stop Dose Admin Acetaminophen 650 mg 11/27/18 20:25 11/27/18 20:48 Tylenol 325mg Tab PO 650 mg Q6 PRN Administration Headache Albuterol Sulfate 2.5 mg 11/25/18 13:39 11/28/18 07:45 Albuterol 0.083% Inhal Sophie (2.5 Mg/3 Ml) Ud INH 2.5 mg RBID PRN Administration Wheezing Arformoterol Tartrate 15 mcg 11/25/18 14:15 11/28/18 07:45 Brovana INH 15 mcg RQ12 MARY Administration Aspirin 81 mg 11/25/18 10:00 11/27/18 09:16 Ecotrin PO 81 mg DAILY MARY Administration Budesonide 0.25 mg 11/25/18 14:15 11/28/18 07:45 Pulmicort Respules INH 0.25 mg RQ12 MARY Administration Clopidogrel Bisulfate 75 mg 11/25/18 10:00 11/28/18 09:35 Plavix PO 75 mg DAILY MARY Administration Enoxaparin Sodium 40 mg 11/28/18 10:00 11/28/18 09:37 Lovenox SC 40 mg DAILY MARY Administration Ergocalciferol 1 cap 11/26/18 10:00 11/26/18 09:41 Drisdol 50,000 Intl Units Cap PO 12/17/18 10:01 1 cap Q7D MARY Administration Famotidine 20 mg 11/25/18 10:00 11/28/18 09:35 Pepcid PO 20 mg BID MARY Administration Furosemide 40 mg 11/28/18 10:00 11/28/18 09:36 Lasix IVP 40 mg BID MARY Administration Glimepiride 2 mg 11/25/18 10:00 11/28/18 09:34 Amaryl PO 2 mg DAILY MARY Administration Insulin Human Regular 0 unit 11/24/18 22:00 11/28/18 16:58 Novolin R SC 1 u ACHS MARY Administration Protocol Levothyroxine Sodium 88 mcg 11/25/18 06:30 11/28/18 06:23 Synthroid PO 88 mcg DAILY@0630 MARY Administration Lidocaine 1 ea 11/26/18 12:15 11/28/18 09:33 Lidoderm TD 1 ea DAILY MARY Administration Losartan Potassium 100 mg 11/24/18 18:10 11/28/18 09:35 Cozaar PO 100 mg DAILY MARY Administration Metoclopramide HCl 5 mg 11/25/18 07:30 11/28/18 08:00 Reglan PO Not Given ACTID MARY Metoprolol Tartrate 50 mg 11/24/18 23:07 11/28/18 09:35 Lopressor PO 50 mg BID MARY Administration Rosuvastatin Calcium 20 mg 11/24/18 22:00 11/27/18 21:01 Crestor PO 20 mg HS MARY Administration Spironolactone 25 mg 11/26/18 10:00 11/28/18 09:34 Aldactone PO 25 mg BID MARY Administration - Patient Studies Lab Studies: Microbiology Studies 11/27/18 05:46 MRSA Culture (Admit) - Final Naris MRSA NOT DETECTED Lab Studies 11/28/18 11/28/18 11/25/18 Range/Units 08:54 08:54 14:55 WBC 8.7 (4.8-10.8) K/uL RBC 3.93 (3.80-5.20) Mil/uL Hgb 11.0 (11.0-16.0) g/dL Hct 33.5 L (34.0-47.0) % MCV 85.1 (81.0-99.0) fL MCH 28.0 (27.0-31.0) pg MCHC 32.9 L (33.0-37.0) g/dL RDW 16.1 H (11.5-14.5) % Plt Count 273 (130-400) K/uL MPV 8.3 (7.2-11.7) fL Neut % (Auto) 68.0 (50.0-75.0) % Lymph % (Auto) 22.2 (20.0-40.0) % Esmeralda % (Auto) 7.7 (0.0-10.0) % Eos % (Auto) 1.6 (0.0-4.0) % Baso % (Auto) 0.5 (0.0-2.0) % Neut # (Auto) 5.9 (1.8-7.0) K/uL Lymph # (Auto) 1.9 (1.0-4.3) K/uL Esmeralda # (Auto) 0.7 (0.0-0.8) K/uL Eos # (Auto) 0.1 (0.0-0.7) K/uL Baso # (Auto) 0.0 (0.0-0.2) K/uL Sodium 140 (132-148) mmol/L Potassium 4.0 (3.6-5.2) mmol/L Chloride 98 (98-107) mmol/L Carbon Dioxide 31 H (22-30) mmol/L Anion Gap 15 (10-20) BUN 29 H (7-17) mg/dL Creatinine 1.2 (0.7-1.2) mg/dL Est GFR ( Amer) 54 Est GFR (Non-Af Amer) 45 Random Glucose 165 H D (65-105) mg/dL Calcium 9.4 (8.6-10.4) mg/dl Phosphorus 3.4 (2.5-4.5) mg/dL Magnesium 1.9 (1.6-2.3) mg/dL Total Bilirubin 0.4 (0.2-1.3) mg/dL AST 35 (14-36) U/L ALT 29 (9-52) U/L Alkaline Phosphatase 108 (38-126) U/L Total Protein 8.0 (6.3-8.3) g/dL Albumin 3.7 (3.5-5.0) g/dL Globulin 4.3 H (2.2-3.9) gm/dL Albumin/Globulin Ratio 0.9 L (1.0-2.1) U Random Total Protein (21-161) mg/g creat Urine Creatinine 22 (20-275) mg/dL Urine Microalbumin 22.4 mg/dL Microalb/Creat Ratio 1016 H (<30) 11/25/18 Range/Units 14:55 WBC (4.8-10.8) K/uL RBC (3.80-5.20) Mil/uL Hgb (11.0-16.0) g/dL Hct (34.0-47.0) % MCV (81.0-99.0) fL MCH (27.0-31.0) pg MCHC (33.0-37.0) g/dL RDW (11.5-14.5) % Plt Count (130-400) K/uL MPV (7.2-11.7) fL Neut % (Auto) (50.0-75.0) % Lymph % (Auto) (20.0-40.0) % Esmeralda % (Auto) (0.0-10.0) % Eos % (Auto) (0.0-4.0) % Baso % (Auto) (0.0-2.0) % Neut # (Auto) (1.8-7.0) K/uL Lymph # (Auto) (1.0-4.3) K/uL Esmeralda # (Auto) (0.0-0.8) K/uL Eos # (Auto) (0.0-0.7) K/uL Baso # (Auto) (0.0-0.2) K/uL Sodium (132-148) mmol/L Potassium (3.6-5.2) mmol/L Chloride (98-107) mmol/L Carbon Dioxide (22-30) mmol/L Anion Gap (10-20) BUN (7-17) mg/dL Creatinine (0.7-1.2) mg/dL Est GFR ( Amer) Est GFR (Non-Af Amer) Random Glucose (65-105) mg/dL Calcium (8.6-10.4) mg/dl Phosphorus (2.5-4.5) mg/dL Magnesium (1.6-2.3) mg/dL Total Bilirubin (0.2-1.3) mg/dL AST (14-36) U/L ALT (9-52) U/L Alkaline Phosphatase (38-126) U/L Total Protein (6.3-8.3) g/dL Albumin (3.5-5.0) g/dL Globulin (2.2-3.9) gm/dL Albumin/Globulin Ratio (1.0-2.1) U Random Total Protein 1913 H (21-161) mg/g creat Urine Creatinine (20-275) mg/dL Urine Microalbumin mg/dL Microalb/Creat Ratio (<30) Laboratory Results - last 24 hr 11/25/18 11/25/18 11/28/18 14:55 14:55 08:54 WBC 8.7 RBC 3.93 Hgb 11.0 Hct 33.5 L MCV 85.1 MCH 28.0 MCHC 32.9 L RDW 16.1 H Plt Count 273 MPV 8.3 Neut % (Auto) 68.0 Lymph % (Auto) 22.2 Esmeralda % (Auto) 7.7 Eos % (Auto) 1.6 Baso % (Auto) 0.5 Neut # (Auto) 5.9 Lymph # (Auto) 1.9 Esmeralda # (Auto) 0.7 Eos # (Auto) 0.1 Baso # (Auto) 0.0 Sodium Potassium Chloride Carbon Dioxide Anion Gap BUN Creatinine Est GFR ( Amer) Est GFR (Non-Af Amer) Random Glucose Calcium Phosphorus Magnesium Total Bilirubin AST ALT Alkaline Phosphatase Total Protein Albumin Globulin Albumin/Globulin Ratio U Random Total Protein 1913 H Urine Creatinine 22 Urine Microalbumin 22.4 Microalb/Creat Ratio 1016 H 11/28/18 08:54 WBC RBC Hgb Hct MCV MCH MCHC RDW Plt Count MPV Neut % (Auto) Lymph % (Auto) Esmeralda % (Auto) Eos % (Auto) Baso % (Auto) Neut # (Auto) Lymph # (Auto) Esmeralda # (Auto) Eos # (Auto) Baso # (Auto) Sodium 140 Potassium 4.0 Chloride 98 Carbon Dioxide 31 H Anion Gap 15 BUN 29 H Creatinine 1.2 Est GFR ( Amer) 54 Est GFR (Non-Af Amer) 45 Random Glucose 165 H D Calcium 9.4 Phosphorus 3.4 Magnesium 1.9 Total Bilirubin 0.4 AST 35 ALT 29 Alkaline Phosphatase 108 Total Protein 8.0 Albumin 3.7 Globulin 4.3 H Albumin/Globulin Ratio 0.9 L U Random Total Protein Urine Creatinine Urine Microalbumin Microalb/Creat Ratio Critical Care Progress Note - Nutrition Nutrition: Nutrition Category Date Time Status Heart Healthy Diet [DIET] Diets 11/27/18 Dinner Active Attending/Attestation - Attestation I have personally seen and examined this patient.: Yes I have fully participated in the care of the patient.: Yes I have reviewed all pertinent clinical information: Yes Notes (Text): 11/28/18 18:58 Patient seen and examined in the intensive care unit. Status post cardiac catheter with multivessel disease Pending transfer to [facility] Continue present treatment for now
--- NOTE | 2018-11-28 19:40 | CARD ---
APPROVED REPORT Date of service: 11/24/2018 EKG Measurement Heart [id number] <Conclusion> Normal sinus rhythm Possible Left atrial enlargement Inferior infarct, age undetermined Anteroseptal infarct, age undetermined ST & T wave abnormality, consider lateral ischemia Abnormal ECG
--- NOTE | 2018-11-28 19:47 | CARD ---
APPROVED REPORT Date of service: 11/24/2018 EKG Measurement Heart [id number] <Conclusion> Normal sinus rhythm Possible Left atrial enlargement Left axis deviation Anteroseptal infarct, age undetermined ST & T wave abnormality, consider inferolateral ischemia Abnormal ECG
--- NOTE | 2018-11-28 22:47 | CP.PCM.PN ---
Subjective - Date & Time of Evaluation Date of Evaluation: 11/28/18 Time of Evaluation: 08:40 - Subjective Subjective: dict Objective - Vital Signs/Intake and Output Vital Signs (last 24 hours): Temp Pulse Resp BP Pulse Ox 98.2 F 70 18 153/76 H 100 11/28/18 22:09 11/28/18 20:58 11/28/18 20:58 11/28/18 20:58 11/28/18 20:58 Intake and Output: 11/28/18 11/29/18 18:59 06:59 Intake Total 960 170 Output Total 701 400 Balance 259 -230 - Medications Medications: Current Medications Acetaminophen (Tylenol 325mg Tab) 650 mg PO Q6 PRN PRN Reason: Headache Last Admin: 11/28/18 22:09 Dose: 650 mg Albuterol Sulfate (Albuterol 0.083% Inhal Sophie (2.5 Mg/3 Ml) Ud) 2.5 mg INH RBID PRN PRN Reason: Wheezing Last Admin: 11/28/18 07:45 Dose: 2.5 mg Arformoterol Tartrate (Brovana) 15 mcg INH RQ12 [facility] Last Admin: 11/28/18 19:47 Dose: 15 mcg Aspirin (Ecotrin) 81 mg PO DAILY [facility] Last Admin: 11/28/18 19:09 Dose: 81 mg Budesonide (Pulmicort Respules) 0.25 mg INH RQ12 [facility] Last Admin: 11/28/18 19:47 Dose: 0.25 mg Clopidogrel Bisulfate (Plavix) 75 mg PO DAILY [facility] Last Admin: 11/28/18 09:35 Dose: 75 mg Enoxaparin Sodium (Lovenox) 40 mg SC DAILY [facility] Last Admin: 11/28/18 09:37 Dose: 40 mg Ergocalciferol (Drisdol 50,000 Intl Units Cap) 1 cap PO Q7D [facility] Stop: 12/17/18 10:01 Last Admin: 11/26/18 09:41 Dose: 1 cap Famotidine (Pepcid) 20 mg PO BID [facility] Last Admin: 11/28/18 19:20 Dose: 20 mg Furosemide (Lasix) 40 mg IVP BID [facility] Last Admin: 11/28/18 19:08 Dose: 40 mg Glimepiride (Amaryl) 2 mg PO DAILY [facility] Last Admin: 11/28/18 09:34 Dose: 2 mg Insulin Human Regular (Novolin R) 0 unit SC ACHS [facility]; Protocol Last Admin: 11/28/18 22:06 Dose: Not Given Levothyroxine Sodium (Synthroid) 88 mcg PO DAILY@0630 [facility] Last Admin: 11/28/18 06:23 Dose: 88 mcg Lidocaine (Lidoderm) 1 ea TD DAILY [facility] Last Admin: 11/28/18 09:33 Dose: 1 ea Losartan Potassium (Cozaar) 100 mg PO DAILY [facility] Last Admin: 11/28/18 09:35 Dose: 100 mg Metoclopramide HCl (Reglan) 5 mg PO ACTID [facility] Last Admin: 11/28/18 16:30 Dose: Not Given Metoprolol Tartrate (Lopressor) 50 mg PO BID [facility] Last Admin: 11/28/18 19:09 Dose: 50 mg Rosuvastatin Calcium (Crestor) 20 mg PO HS [facility] Last Admin: 11/28/18 22:12 Dose: 20 mg Spironolactone (Aldactone) 25 mg PO BID [facility] Last Admin: 11/28/18 19:12 Dose: 25 mg - Labs Labs: 11/28/18 08:54 11/28/18 08:54 PT 13.4 SECONDS (9.7-12.2) H 11/24/18 17:12 INR 1.2 11/24/18 17:12 APTT 49.0 SECONDS (21-34) H 11/27/18 04:49
--- NOTE | 2018-11-28 23:40 | CP.PCM.PN ---
Subjective - Date & Time of Evaluation Date of Evaluation: 11/28/18 Time of Evaluation: 18:30 - Subjective Subjective: Patient seen and examined at bedside. Still has dyspnea at rest CCU Objective - Vital Signs / Intake & Output Vital Signs (Last 4 hours): Vital Signs Temp Pulse Resp BP Pulse Ox 11/28/18 16:18 76 16 143/57 L 100 11/28/18 16:00 98 F 74 22 143/57 L 100 11/28/18 15:00 71 26 H 100 11/28/18 14:58 71 26 H 154/72 H 100 Intake and Output (Last 8hrs): Intake & Output 11/28/18 11/28/18 11/28/18 06:59 14:59 22:59 Intake Total 90 860 0 Output Total 701 Balance 90 159 0 Intake: Intake, IV Amount 0 0 Left Forearm 0 left forearm 0 Oral 90 860 0 Output: Urine 700 Urine, Voided 700 Stool 1 Other: # Voids Urine, Voided 4 1 # Bowel Movements 0 0 - Physical Exam Head: Positive for: Atraumatic, Normocephalic Pupils: Positive for: PERRL Extroacular Muscles: Positive for: EOMI Respiratory/Chest: Positive for: Clear to Auscultation. Negative for: Respiratory Distress Cardiovascular: Positive for: Regular Rate and Rhythm, Normal S1, S2 Abdomen: Negative for: Tenderness Neurological: Positive for: CN II-XII Intact Skin: Positive for: Warm, Dry Psychiatric: Positive for: Oriented x 3 - Medications Active Medications: Active Medications Generic Name Dose Route Start Last Admin Trade Name Freq PRN Reason Stop Dose Admin Acetaminophen 650 mg 11/27/18 20:25 11/27/18 20:48 Tylenol 325mg Tab PO 650 mg Q6 PRN Administration Headache Albuterol Sulfate 2.5 mg 11/25/18 13:39 11/28/18 07:45 Albuterol 0.083% Inhal Sophie (2.5 Mg/3 Ml) Ud INH 2.5 mg RBID PRN Administration Wheezing Arformoterol Tartrate 15 mcg 11/25/18 14:15 11/28/18 07:45 Brovana INH 15 mcg RQ12 MARY Administration Aspirin 81 mg 11/25/18 10:00 11/27/18 09:16 Ecotrin PO 81 mg DAILY MARY Administration Budesonide 0.25 mg 11/25/18 14:15 11/28/18 07:45 Pulmicort Respules INH 0.25 mg RQ12 MARY Administration Clopidogrel Bisulfate 75 mg 11/25/18 10:00 11/28/18 09:35 Plavix PO 75 mg DAILY MARY Administration Enoxaparin Sodium 40 mg 11/28/18 10:00 11/28/18 09:37 Lovenox SC 40 mg DAILY MARY Administration Ergocalciferol 1 cap 11/26/18 10:00 11/26/18 09:41 Drisdol 50,000 Intl Units Cap PO 12/17/18 10:01 1 cap Q7D MARY Administration Famotidine 20 mg 11/25/18 10:00 11/28/18 09:35 Pepcid PO 20 mg BID MARY Administration Furosemide 40 mg 11/28/18 10:00 11/28/18 09:36 Lasix IVP 40 mg BID MARY Administration Glimepiride 2 mg 11/25/18 10:00 11/28/18 09:34 Amaryl PO 2 mg DAILY MARY Administration Insulin Human Regular 0 unit 11/24/18 22:00 11/28/18 16:58 Novolin R SC 1 u ACHS MARY Administration Protocol Levothyroxine Sodium 88 mcg 11/25/18 06:30 11/28/18 06:23 Synthroid PO 88 mcg DAILY@0630 MARY Administration Lidocaine 1 ea 11/26/18 12:15 11/28/18 09:33 Lidoderm TD 1 ea DAILY MARY Administration Losartan Potassium 100 mg 11/24/18 18:10 11/28/18 09:35 Cozaar PO 100 mg DAILY MARY Administration Metoclopramide HCl 5 mg 11/25/18 07:30 11/28/18 08:00 Reglan PO Not Given ACTID MARY Metoprolol Tartrate 50 mg 11/24/18 23:07 11/28/18 09:35 Lopressor PO 50 mg BID MARY Administration Rosuvastatin Calcium 20 mg 11/24/18 22:00 11/27/18 21:01 Crestor PO 20 mg HS MARY Administration Spironolactone 25 mg 11/26/18 10:00 11/28/18 09:34 Aldactone PO 25 mg BID MARY Administration - Patient Studies Lab Studies: Microbiology Studies 11/27/18 05:46 MRSA Culture (Admit) - Final Naris MRSA NOT DETECTED Lab Studies 11/28/18 11/28/18 11/25/18 Range/Units 08:54 08:54 14:55 WBC 8.7 (4.8-10.8) K/uL RBC 3.93 (3.80-5.20) Mil/uL Hgb 11.0 (11.0-16.0) g/dL Hct 33.5 L (34.0-47.0) % MCV 85.1 (81.0-99.0) fL MCH 28.0 (27.0-31.0) pg MCHC 32.9 L (33.0-37.0) g/dL RDW 16.1 H (11.5-14.5) % Plt Count 273 (130-400) K/uL MPV 8.3 (7.2-11.7) fL Neut % (Auto) 68.0 (50.0-75.0) % Lymph % (Auto) 22.2 (20.0-40.0) % [place] % (Auto) 7.7 (0.0-10.0) % Eos % (Auto) 1.6 (0.0-4.0) % Baso % (Auto) 0.5 (0.0-2.0) % Neut # (Auto) 5.9 (1.8-7.0) K/uL Lymph # (Auto) 1.9 (1.0-4.3) K/uL [place] # (Auto) 0.7 (0.0-0.8) K/uL Eos # (Auto) 0.1 (0.0-0.7) K/uL Baso # (Auto) 0.0 (0.0-0.2) K/uL Sodium 140 (132-148) mmol/L Potassium 4.0 (3.6-5.2) mmol/L Chloride 98 (98-107) mmol/L Carbon Dioxide 31 H (22-30) mmol/L Anion Gap 15 (10-20) BUN 29 H (7-17) mg/dL Creatinine 1.2 (0.7-1.2) mg/dL Est GFR ( Amer) 54 Est GFR (Non-Af Amer) 45 Random Glucose 165 H D (65-105) mg/dL Calcium 9.4 (8.6-10.4) mg/dl Phosphorus 3.4 (2.5-4.5) mg/dL Magnesium 1.9 (1.6-2.3) mg/dL Total Bilirubin 0.4 (0.2-1.3) mg/dL AST 35 (14-36) U/L ALT 29 (9-52) U/L Alkaline Phosphatase 108 (38-126) U/L Total Protein 8.0 (6.3-8.3) g/dL Albumin 3.7 (3.5-5.0) g/dL Globulin 4.3 H (2.2-3.9) gm/dL Albumin/Globulin Ratio 0.9 L (1.0-2.1) U Random Total Protein (21-161) mg/g creat Urine Creatinine 22 (20-275) mg/dL Urine Microalbumin 22.4 mg/dL Microalb/Creat Ratio 1016 H (<30) 11/25/18 Range/Units 14:55 WBC (4.8-10.8) K/uL RBC (3.80-5.20) Mil/uL Hgb (11.0-16.0) g/dL Hct (34.0-47.0) % MCV (81.0-99.0) fL MCH (27.0-31.0) pg MCHC (33.0-37.0) g/dL RDW (11.5-14.5) % Plt Count (130-400) K/uL MPV (7.2-11.7) fL Neut % (Auto) (50.0-75.0) % Lymph % (Auto) (20.0-40.0) % [place] % (Auto) (0.0-10.0) % Eos % (Auto) (0.0-4.0) % Baso % (Auto) (0.0-2.0) % Neut # (Auto) (1.8-7.0) K/uL Lymph # (Auto) (1.0-4.3) K/uL [place] # (Auto) (0.0-0.8) K/uL Eos # (Auto) (0.0-0.7) K/uL Baso # (Auto) (0.0-0.2) K/uL Sodium (132-148) mmol/L Potassium (3.6-5.2) mmol/L Chloride (98-107) mmol/L Carbon Dioxide (22-30) mmol/L Anion Gap (10-20) BUN (7-17) mg/dL Creatinine (0.7-1.2) mg/dL Est GFR ( Amer) Est GFR (Non-Af Amer) Random Glucose (65-105) mg/dL Calcium (8.6-10.4) mg/dl Phosphorus (2.5-4.5) mg/dL Magnesium (1.6-2.3) mg/dL Total Bilirubin (0.2-1.3) mg/dL AST (14-36) U/L ALT (9-52) U/L Alkaline Phosphatase (38-126) U/L Total Protein (6.3-8.3) g/dL Albumin (3.5-5.0) g/dL Globulin (2.2-3.9) gm/dL Albumin/Globulin Ratio (1.0-2.1) U Random Total Protein 1913 H (21-161) mg/g creat Urine Creatinine (20-275) mg/dL Urine Microalbumin mg/dL Microalb/Creat Ratio (<30) Laboratory Results - last 24 hr 11/25/18 11/25/18 11/28/18 14:55 14:55 08:54 WBC 8.7 RBC 3.93 Hgb 11.0 Hct 33.5 L MCV 85.1 MCH 28.0 MCHC 32.9 L RDW 16.1 H Plt Count 273 MPV 8.3 Neut % (Auto) 68.0 Lymph % (Auto) 22.2 [place] % (Auto) 7.7 Eos % (Auto) 1.6 Baso % (Auto) 0.5 Neut # (Auto) 5.9 Lymph # (Auto) 1.9 [place] # (Auto) 0.7 Eos # (Auto) 0.1 Baso # (Auto) 0.0 Sodium Potassium Chloride Carbon Dioxide Anion Gap BUN Creatinine Est GFR ( Amer) Est GFR (Non-Af Amer) Random Glucose Calcium Phosphorus Magnesium Total Bilirubin AST ALT Alkaline Phosphatase Total Protein Albumin Globulin Albumin/Globulin Ratio U Random Total Protein 1913 H Urine Creatinine 22 Urine Microalbumin 22.4 Microalb/Creat Ratio 1016 H 11/28/18 08:54 WBC RBC Hgb Hct MCV MCH MCHC RDW Plt Count MPV Neut % (Auto) Lymph % (Auto) [place] % (Auto) Eos % (Auto) Baso % (Auto) Neut # (Auto) Lymph # (Auto) [place] # (Auto) Eos # (Auto) Baso # (Auto) Sodium 140 Potassium 4.0 Chloride 98 Carbon Dioxide 31 H Anion Gap 15 BUN 29 H Creatinine 1.2 Est GFR ( Amer) 54 Est GFR (Non-Af Amer) 45 Random Glucose 165 H D Calcium 9.4 Phosphorus 3.4 Magnesium 1.9 Total Bilirubin 0.4 AST 35 ALT 29 Alkaline Phosphatase 108 Total Protein 8.0 Albumin 3.7 Globulin 4.3 H Albumin/Globulin Ratio 0.9 L U Random Total Protein Urine Creatinine Urine Microalbumin Microalb/Creat Ratio Fingerstick Blood Sugar Results: 188 Review of Systems - Review of Systems All systems: reviewed and no additional remarkable complaints except Critical Care Progress Note - Nutrition Nutrition: Nutrition Category Date Time Status Heart Healthy Diet [DIET] Diets 11/27/18 Dinner Active Assessment/Plan - Assessment and Plan (Free Text) Assessment: Patient seen and examined at bedside in ICU. Underwent Cardiac cath yesterday, concerning for occlusion of 2 of 3 graft vessels, complete occlusion of [place] 3 vessels, and EF of 20%. Pending transfer to [place] [facility] unit, once a bed is available. Only mild increase in Cr post-cath today. Cardio CAD (triple vessel dz) s/p CABG -s/p cardiac cath demonstrating occlusion of 2 of 3 graft vessels, complete occlusion of [place] 3 vessels, and EF of 20% -Pending transfer to [place] -ICU cardiac monitoring -Trops trended -ASA 81, Plavix, Metoprolol, Aldactone Pulm -Monitor CXR for effusions -Lasix 40 IV daily -Maintain spO2>92% Renal ORTEGA -Dr. Alejandro Rivera -Cr improving - 1.2 -Lasix 40 IV BID Endo DM -ISS -Accuchekcs ACHS -Hypoglycemia protocol Objective - Vital Signs/Intake and Output Vital Signs (last 24 hours): Temp Pulse Resp BP Pulse Ox 98.2 F 70 18 153/76 H 100 11/28/18 22:09 11/28/18 20:58 11/28/18 20:58 11/28/18 20:58 11/28/18 20:58 Intake and Output: 11/28/18 11/29/18 18:59 06:59 Intake Total 960 170 Output Total 701 400 Balance 259 -230 - Medications Medications: Current Medications Acetaminophen (Tylenol 325mg Tab) 650 mg PO Q6 PRN PRN Reason: Headache Last Admin: 11/28/18 22:09 Dose: 650 mg Albuterol Sulfate (Albuterol 0.083% Inhal Sophie (2.5 Mg/3 Ml) Ud) 2.5 mg INH RBID PRN PRN Reason: Wheezing Last Admin: 11/28/18 07:45 Dose: 2.5 mg Arformoterol Tartrate (Brovana) 15 mcg INH RQ12 [facility] Last Admin: 11/28/18 19:47 Dose: 15 mcg Aspirin (Ecotrin) 81 mg PO DAILY [facility] Last Admin: 11/28/18 19:09 Dose: 81 mg Budesonide (Pulmicort Respules) 0.25 mg INH RQ12 [facility] Last Admin: 11/28/18 19:47 Dose: 0.25 mg Clopidogrel Bisulfate (Plavix) 75 mg PO DAILY [facility] Last Admin: 11/28/18 09:35 Dose: 75 mg Enoxaparin Sodium (Lovenox) 40 mg SC DAILY [facility] Last Admin: 11/28/18 09:37 Dose: 40 mg Ergocalciferol (Drisdol 50,000 Intl Units Cap) 1 cap PO Q7D [facility] Stop: 12/17/18 10:01 Last Admin: 11/26/18 09:41 Dose: 1 cap Famotidine (Pepcid) 20 mg PO BID [facility] Last Admin: 11/28/18 19:20 Dose: 20 mg Furosemide (Lasix) 40 mg IVP BID [facility] Last Admin: 11/28/18 19:08 Dose: 40 mg Glimepiride (Amaryl) 2 mg PO DAILY [facility] Last Admin: 11/28/18 09:34 Dose: 2 mg Insulin Human Regular (Novolin R) 0 unit SC [facility]; Protocol Last Admin: 11/28/18 22:06 Dose: Not Given Levothyroxine Sodium (Synthroid) 88 mcg PO DAILY@0630 [facility] Last Admin: 11/28/18 06:23 Dose: 88 mcg Lidocaine (Lidoderm) 1 ea TD DAILY [facility] Last Admin: 11/28/18 09:33 Dose: 1 ea Losartan Potassium (Cozaar) 100 mg PO DAILY [facility] Last Admin: 11/28/18 09:35 Dose: 100 mg Metoclopramide HCl (Reglan) 5 mg PO ACTID [facility] Last Admin: 11/28/18 16:30 Dose: Not Given Metoprolol Tartrate (Lopressor) 50 mg PO BID [facility] Last Admin: 11/28/18 19:09 Dose: 50 mg Rosuvastatin Calcium (Crestor) 20 mg PO HS [facility] Last Admin: 11/28/18 22:12 Dose: 20 mg Spironolactone (Aldactone) 25 mg PO BID [facility] Last Admin: 11/28/18 19:12 Dose: 25 mg - Labs Labs: 11/28/18 08:54 11/28/18 08:54 PT 13.4 SECONDS (9.7-12.2) H 11/24/18 17:12 INR 1.2 11/24/18 17:12 APTT 49.0 SECONDS (21-34) H 11/27/18 04:49
[2018-11-29 06:10] LABS: BASO % 0.5 % (0.0-2.0); EOS # 0.1 K/uL (0.0-0.7); EOS % 1.6 % (0.0-4.0); HEMOGLOBIN 10.6 g/dL (11.0-16.0); LYMPH # 1.6 K/uL (1.0-4.3); LYMPH % 19.7 % (20.0-40.0); MEAN CELL VOLUME 85.4 fL (81.0-99.0); MEAN CORPUSCULAR HEMOGLOBIN 27.6 pg (27.0-31.0); MEAN CORPUSCULAR HGB CONC 32.4 g/dL (33.0-37.0); MEAN PLATELET VOLUME 8.1 fL (7.2-11.7); MONO # 0.6 K/uL (0.0-0.8); MONO % 8.2 % (0.0-10.0); NEUT # 5.5 K/uL (1.8-7.0); NRBC % 0.1 % (0.0-2.0); RBC 3.83 Mil/uL (3.80-5.20); RED CELL DISTRIBUTION WIDTH 15.4 % (11.5-14.5); WHITE BLOOD COUNT 7.9 K/uL (4.8-10.8)
--- NOTE | 2018-11-29 06:11 | PN ---
DATE: 11/29/2018 SUBJECTIVE: The patient is feeling better. She is afebrile. She is sitting in the chair. No fever, no chills. No nausea or vomiting. PHYSICAL EXAMINATION: VITAL SIGNS: Blood pressure is 124/48, pulse 58, respiratory rate 18, temperature 98. LUNGS: Bilateral basal crepitations. Normal air entry. CARDIOVASCULAR SYSTEM: S1 and S2, regular. No heave. No thrill. ABDOMEN: Soft, nontender. Bowel sounds are positive. ASSESSMENT: 1. Dilated severe ischemic cardiomyopathy, on diuretics, intake and output. 2. Coronary artery disease with re-occlusion. 3. Diabetes. 4. Hypertension. PLAN: Continue current medication. Monitor the patient. Abdiel Baca MD
[2018-11-29] MEDS: Levothyroxine 88 MCG TAB PO SCH (06:30)
[2018-11-29 06:38] LABS: ALB/GLOB RATIO 0.9 (1.0-2.1); ALBUMIN 3.7 g/dL (3.5-5.0); CALCIUM 9.5 mg/dl (8.6-10.4)
[2018-11-29] MEDS: Budesonide 0.25 mg/2 ml Inhal Susp UD INH SCH ×2 (07:45→19:53)
[2018-11-29] MEDS: Albuterol 0.083% Inhal Sol (2.5 mg/3 mL) UD INH PRN (07:45)
[2018-11-29] MEDS: Arformoterol 15 mcg/2 ml Inh Sol INH SCH ×2 (07:45→19:53)
--- NOTE | 2018-11-29 07:45 | CP.PCM.PN ---
<Gato Cruz - Last Filed: 11/29/18 14:51> Subjective - Date & Time of Evaluation Date of Evaluation: 11/29/18 Time of Evaluation: 09:10 - Subjective Subjective: Nephro Progress Note for Dr. Allen Service Gato Cruz DO, PGY-3 Patient seen and examined at bedside in ICU. Still pending transfer to [place] [facility] Failure unit. Refused Life-vest yesterday, reports that it seems too complicated for her, so she doesn't want to use it. Explained risks of sudden cardiac due to arrhythmia from low EF, which she acknowledged, but she still is refusing Life-vest. Reports otherwise at baseline state, mildly short of breath and with persistent low-level chest discomfort (present x4 days). Reports normal urination, denies hematuria/dysuria. Objective - Vital Signs/Intake and Output Vital Signs (last 24 hours): Temp Pulse Resp BP Pulse Ox 98.5 F 65 14 168/71 H 100 11/29/18 04:00 11/29/18 07:00 11/29/18 07:00 11/29/18 06:58 11/29/18 07:00 Intake and Output: 11/29/18 11/29/18 06:59 18:59 Intake Total 370 0 Output Total 700 Balance -330 0 - Medications Medications: Current Medications Acetaminophen (Tylenol 325mg Tab) 650 mg PO Q6 PRN PRN Reason: Headache Last Admin: 11/28/18 22:09 Dose: 650 mg Albuterol Sulfate (Albuterol 0.083% Inhal Sophie (2.5 Mg/3 Ml) Ud) 2.5 mg INH RBID PRN PRN Reason: Wheezing Last Admin: 11/28/18 07:45 Dose: 2.5 mg Arformoterol Tartrate (Brovana) 15 mcg INH RQ12 [facility] Last Admin: 11/28/18 19:47 Dose: 15 mcg Aspirin (Ecotrin) 81 mg PO DAILY [facility] Last Admin: 11/28/18 19:09 Dose: 81 mg Budesonide (Pulmicort Respules) 0.25 mg INH RQ12 [facility] Last Admin: 11/28/18 19:47 Dose: 0.25 mg Clopidogrel Bisulfate (Plavix) 75 mg PO DAILY [facility] Last Admin: 11/28/18 09:35 Dose: 75 mg Enoxaparin Sodium (Lovenox) 40 mg SC DAILY [facility] Last Admin: 11/28/18 09:37 Dose: 40 mg Ergocalciferol (Drisdol 50,000 Intl Units Cap) 1 cap PO Q7D [facility] Stop: 12/17/18 10:01 Last Admin: 11/26/18 09:41 Dose: 1 cap Famotidine (Pepcid) 20 mg PO BID [facility] Last Admin: 11/28/18 19:20 Dose: 20 mg Furosemide (Lasix) 40 mg IVP BID [facility] Last Admin: 11/28/18 19:08 Dose: 40 mg Glimepiride (Amaryl) 2 mg PO DAILY [facility] Last Admin: 11/28/18 09:34 Dose: 2 mg Insulin Human Regular (Novolin R) 0 unit SC [facility]; Protocol Last Admin: 11/28/18 22:06 Dose: Not Given Levothyroxine Sodium (Synthroid) 88 mcg PO DAILY@0630 [facility] Last Admin: 11/29/18 06:30 Dose: 88 mcg Lidocaine (Lidoderm) 1 ea TD DAILY [facility] Last Admin: 11/28/18 09:33 Dose: 1 ea Losartan Potassium (Cozaar) 100 mg PO DAILY [facility] Last Admin: 11/28/18 09:35 Dose: 100 mg Metoclopramide HCl (Reglan) 5 mg PO ACTID [facility] Last Admin: 11/28/18 16:30 Dose: Not Given Metoprolol Tartrate (Lopressor) 50 mg PO BID [facility] Last Admin: 11/28/18 19:09 Dose: 50 mg Rosuvastatin Calcium (Crestor) 20 mg PO HS [facility] Last Admin: 11/28/18 22:12 Dose: 20 mg Spironolactone (Aldactone) 25 mg PO BID [facility] Last Admin: 11/28/18 19:12 Dose: 25 mg - Labs Labs: 11/29/18 06:07 11/29/18 06:07 PT 13.4 SECONDS (9.7-12.2) H 11/24/18 17:12 INR 1.2 11/24/18 17:12 APTT 49.0 SECONDS (21-34) H 11/27/18 04:49 - Additional Findings Additional findings: - Constitutional Appears: Non-toxic, No Acute Distress, Sitting comfortably at bedside - Head Exam Head Exam: ATRAUMATIC, NORMAL INSPECTION, NORMOCEPHALIC - Eye Exam Eye Exam: Normal appearance. absent: Conjunctival injection, Scleral icterus - ENT Exam ENT Exam: Mucous Membranes Moist - Neck Exam Neck Exam: Full ROM - Respiratory Exam Respiratory Exam: Clear to Ausculation Bilateral, NORMAL BREATHING PATTERN. absent: Accessory Muscle Use, Chest Wall Tenderness, Decreased Breath Sounds, Rales, Rhonchi, Wheezes - Cardiovascular Exam Cardiovascular Exam: REGULAR RHYTHM, RRR, +S1, +S2. absent: Bradycardia, Tachycardia, Irregular Rhythm, JVD, +S4 - GI/Abdominal Exam GI & Abdominal Exam: Soft, Normal Bowel Sounds. absent: Distended, Firm, Guarding, Rigid, Tenderness, Diminished Bowel Sounds, Hyperactive Bowel Sounds, Hypoactive Bowel Sounds - Extremities Exam Extremities Exam: Pedal Edema (+1 pitting edema from feet to mid-shins bilaterally), Tenderness. absent: Calf Tenderness - Neurological Exam awake and alert, following all commands appropriately moving all extremities spontaneously and on command motor grossly intact and equal bilaterally - Psychiatric Exam Psychiatric exam: Normal Affect, Normal Mood - Skin Skin Exam: Dry, Intact, Normal Color, Warm Assessment and Plan - Assessment and Plan (Free Text) Assessment: This is a 68 yo F with PMH of DM, HTN, RA, SLE, GERD, and CAD s/p CABG who prese nted with complaints of SOB, abd pain, and exertional chest pain x1 week, and was found to have NSTEMI. Nephro was consulted for ORTEGA. S/p cardiac cath, now pending transfer to [place] [facility] unit. 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 and low EF 2) ORTEGA 3) NSTEMI 4) HTN 5) DM 6) Hx SLE 7) Hypothyroidism -Cr increased to 1.3, was 1.2, continue to monitor -Improved but still present fluid overload, continue aldactone -Continue current BP management -Continue home synthroid -Pending transfer to [place] to Heart Failure unit due to EF 20% in setting of triple vessel dz with 2 of 3 graft vessels occluded Refusing Live-vest, at increased risk of sudden cardiac , patient aware but still refusing Seen, reviewed, and discussed with attending, Dr. Allen. <Silvano Allen - Last Filed: 11/30/18 06:30> Objective - Vital Signs/Intake and Output Vital Signs (last 24 hours): Temp Pulse Resp BP Pulse Ox 98 F 73 19 139/66 97 11/30/18 00:00 11/30/18 05:00 11/30/18 05:00 11/30/18 04:57 11/30/18 04:00 Intake and Output: 11/29/18 11/30/18 18:59 06:59 Intake Total 600 100 Output Total 540 1100 Balance 60 -1000 - Medications Medications: Current Medications Acetaminophen (Tylenol 325mg Tab) 650 mg PO Q6 PRN PRN Reason: Headache Last Admin: 11/29/18 22:59 Dose: 650 mg Albuterol Sulfate (Albuterol 0.083% Inhal Sophie (2.5 Mg/3 Ml) Ud) 2.5 mg INH RBID PRN PRN Reason: Wheezing Last Admin: 11/29/18 07:45 Dose: 2.5 mg Arformoterol Tartrate (Brovana) 15 mcg INH RQ12 [facility] Last Admin: 11/29/18 19:53 Dose: 15 mcg Aspirin (Ecotrin) 81 mg PO DAILY [facility] Last Admin: 11/29/18 10:48 Dose: 81 mg Budesonide (Pulmicort Respules) 0.25 mg INH RQ12 [facility] Last Admin: 11/29/18 19:53 Dose: 0.25 mg Clopidogrel Bisulfate (Plavix) 75 mg PO DAILY [facility] Last Admin: 11/29/18 09:32 Dose: 75 mg Enoxaparin Sodium (Lovenox) 40 mg SC DAILY [facility] Last Admin: 11/29/18 09:32 Dose: 40 mg Ergocalciferol (Drisdol 50,000 Intl Units Cap) 1 cap PO Q7D [facility] Stop: 12/17/18 10:01 Last Admin: 11/26/18 09:41 Dose: 1 cap Famotidine (Pepcid) 20 mg PO BID [facility] Last Admin: 11/29/18 17:37 Dose: 20 mg Furosemide (Lasix) 40 mg IVP BID [facility] Last Admin: 11/29/18 17:28 Dose: 40 mg Glimepiride (Amaryl) 2 mg PO DAILY [facility] Last Admin: 11/29/18 09:31 Dose: 2 mg Insulin Human Regular (Novolin R) 0 unit SC [facility]; Protocol Last Admin: 11/29/18 22:00 Dose: Not Given Levothyroxine Sodium (Synthroid) 88 mcg PO DAILY@0630 [facility] Last Admin: 11/30/18 06:07 Dose: 88 mcg Lidocaine (Lidoderm) 1 ea TD DAILY [facility] Last Admin: 11/29/18 09:33 Dose: 1 ea Losartan Potassium (Cozaar) 100 mg PO DAILY [facility] Last Admin: 11/29/18 09:31 Dose: 100 mg Metoclopramide HCl (Reglan) 5 mg PO ACTID [facility] Last Admin: 11/29/18 12:03 Dose: Not Given Metoprolol Tartrate (Lopressor) 50 mg PO BID [facility] Last Admin: 11/29/18 09:31 Dose: 50 mg Rosuvastatin Calcium (Crestor) 20 mg PO HS [facility] Last Admin: 11/29/18 22:48 Dose: 20 mg Spironolactone (Aldactone) 25 mg PO BID [facility] Last Admin: 11/29/18 17:28 Dose: 25 mg - Labs Labs: 11/30/18 06:06 11/29/18 06:07 PT 13.4 SECONDS (9.7-12.2) H 11/24/18 17:12 INR 1.2 11/24/18 17:12 APTT 49.0 SECONDS (21-34) H 11/27/18 04:49 Assessment and Plan (1) CHF (congestive heart failure) Status: Acute (2) Renal insufficiency Status: Chronic (3) HTN (hypertension) Status: Acute Attending/Attestation - Attestation I have personally seen and examined this patient.: Yes I have fully participated in the care of the patient.: Yes I have reviewed all pertinent clinical information, including history, physical exam and plan: Yes Notes (Text): Patient seen and examined; I agree with the resident's note as above with the following additions/edits: 68 yo F w/ pmh of htn, dm, CAD s/p CABG (2011), SLE, admitted with NSTEMI and acute decompensated systolic CHF; Patient awaiting transfer to heart failure center after being found to have occluded bypass graft on cath; discussed with cardio; patient also with extremely high LVEDP; has overall been tolerating diuresis with IV lasix 40 mg bid and aldactone 25 mg bid, very mild increase in serum creatinine noted, should continue the same regimen as she is symptomatically improving; HTN with BP control still erratic; continue losartan 100 mg daily and metoprolol 50 mg bid; may benefit from changing metoprolol to coreg; -avoid nephrotoxic agents (especially NSAIDS);
[2018-11-29] MEDS: (Novolin R) Insulin Human Regular 100 units/ml vial SC SCH ×4 (08:06→22:00)
--- NOTE | 2018-11-29 09:28 | CP.PCM.PN ---
<Jeanne Rivera - Last Filed: 11/29/18 16:49> Subjective - Date & Time of Evaluation Date of Evaluation: 11/29/18 Time of Evaluation: 09:28 - Subjective Subjective: Progress note for Dr. Howard Patient was seen and examined at bedside in no acute distress. Patient reports she has occasional chest discomfort and leg swelling, but otherwise denies additional complaints. She says her breathing has improved. She denies palpitati ons, dyspnea, nausea, vomiting, fevers, headaches, dizziness, and leg pain. Objective - Vital Signs/Intake and Output Vital Signs (last 24 hours): Temp Pulse Resp BP Pulse Ox 97.4 F L 63 18 170/78 H 100 11/29/18 08:00 11/29/18 08:00 11/29/18 08:00 11/29/18 08:00 11/29/18 08:00 Intake and Output: 11/29/18 11/29/18 06:59 18:59 Intake Total 370 150 Output Total 700 0 Balance -330 150 - Medications Medications: Current Medications Acetaminophen (Tylenol 325mg Tab) 650 mg PO Q6 PRN PRN Reason: Headache Last Admin: 11/28/18 22:09 Dose: 650 mg Albuterol Sulfate (Albuterol 0.083% Inhal Sophie (2.5 Mg/3 Ml) Ud) 2.5 mg INH RBID PRN PRN Reason: Wheezing Last Admin: 11/29/18 07:45 Dose: 2.5 mg Arformoterol Tartrate (Brovana) 15 mcg INH RQ12 [facility] Last Admin: 11/29/18 07:45 Dose: 15 mcg Aspirin (Ecotrin) 81 mg PO DAILY [facility] Last Admin: 11/28/18 19:09 Dose: 81 mg Budesonide (Pulmicort Respules) 0.25 mg INH RQ12 [facility] Last Admin: 11/29/18 07:45 Dose: 0.25 mg Clopidogrel Bisulfate (Plavix) 75 mg PO DAILY [facility] Last Admin: 11/28/18 09:35 Dose: 75 mg Enoxaparin Sodium (Lovenox) 40 mg SC DAILY [facility] Last Admin: 11/28/18 09:37 Dose: 40 mg Ergocalciferol (Drisdol 50,000 Intl Units Cap) 1 cap PO Q7D [facility] Stop: 12/17/18 10:01 Last Admin: 11/26/18 09:41 Dose: 1 cap Famotidine (Pepcid) 20 mg PO BID [facility] Last Admin: 11/28/18 19:20 Dose: 20 mg Furosemide (Lasix) 40 mg IVP BID [facility] Last Admin: 11/28/18 19:08 Dose: 40 mg Glimepiride (Amaryl) 2 mg PO DAILY [facility] Last Admin: 11/28/18 09:34 Dose: 2 mg Insulin Human Regular (Novolin R) 0 unit SC [facility]; Protocol Last Admin: 11/29/18 08:06 Dose: Not Given Levothyroxine Sodium (Synthroid) 88 mcg PO DAILY@0630 [facility] Last Admin: 11/29/18 06:30 Dose: 88 mcg Lidocaine (Lidoderm) 1 ea TD DAILY [facility] Last Admin: 11/28/18 09:33 Dose: 1 ea Losartan Potassium (Cozaar) 100 mg PO DAILY [facility] Last Admin: 11/28/18 09:35 Dose: 100 mg Metoclopramide HCl (Reglan) 5 mg PO ACTID [facility] Last Admin: 11/29/18 08:07 Dose: Not Given Metoprolol Tartrate (Lopressor) 50 mg PO BID [facility] Last Admin: 11/28/18 19:09 Dose: 50 mg Rosuvastatin Calcium (Crestor) 20 mg PO HS [facility] Last Admin: 11/28/18 22:12 Dose: 20 mg Spironolactone (Aldactone) 25 mg PO BID [facility] Last Admin: 11/28/18 19:12 Dose: 25 mg - Labs Labs: 11/29/18 06:07 11/29/18 06:07 PT 13.4 SECONDS (9.7-12.2) H 11/24/18 17:12 INR 1.2 11/24/18 17:12 APTT 49.0 SECONDS (21-34) H 11/27/18 04:49 - Constitutional Appears: No Acute Distress - Head Exam Head Exam: NORMAL INSPECTION - Eye Exam Eye Exam: EOMI - ENT Exam ENT Exam: Mucous Membranes Moist - Respiratory Exam Respiratory Exam: NORMAL BREATHING PATTERN. absent: Rhonchi, Wheezes - Cardiovascular Exam Cardiovascular Exam: REGULAR RHYTHM, +S1, +S2 - GI/Abdominal Exam GI & Abdominal Exam: Soft, Normal Bowel Sounds. absent: Distended, Tenderness - Extremities Exam Extremities Exam: Pedal Edema (mild bilaterally). absent: Tenderness - Neurological Exam Neurological Exam: Alert, Awake, Oriented x3 - Psychiatric Exam Psychiatric exam: Normal Affect, Normal Mood - Skin Skin Exam: Dry, Normal Color, Warm Assessment and Plan - Assessment and Plan (Free Text) Plan: 68 yo F with PMH of DM, HTN, RA, SLE, GERD, and CAD s/p CABG who presented with complaints of SOB, abdominal pain, and exertional chest pain x1 week. Patient was found to have NSTEMI. S/p cardiac cath, now pending transfer to [facility]. 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 Case discussed with Dr. Lee Sheets, PGY2 <David Howard - Last Filed: 11/29/18 23:04> Objective - Vital Signs/Intake and Output Vital Signs (last 24 hours): Temp Pulse Resp BP Pulse Ox 98 F 69 22 161/74 H 99 11/29/18 20:00 11/29/18 20:00 11/29/18 20:00 11/29/18 20:00 11/29/18 20:00 Intake and Output: 11/29/18 11/30/18 18:59 06:59 Intake Total 600 100 Output Total 540 650 Balance 60 -550 - Medications Medications: Current Medications Acetaminophen (Tylenol 325mg Tab) 650 mg PO Q6 PRN PRN Reason: Headache Last Admin: 11/29/18 09:32 Dose: 650 mg Albuterol Sulfate (Albuterol 0.083% Inhal Sophie (2.5 Mg/3 Ml) Ud) 2.5 mg INH RBID PRN PRN Reason: Wheezing Last Admin: 11/29/18 07:45 Dose: 2.5 mg Arformoterol Tartrate (Brovana) 15 mcg INH RQ12 [facility] Last Admin: 11/29/18 19:53 Dose: 15 mcg Aspirin (Ecotrin) 81 mg PO DAILY [facility] Last Admin: 11/29/18 10:48 Dose: 81 mg Budesonide (Pulmicort Respules) 0.25 mg INH RQ12 [facility] Last Admin: 11/29/18 19:53 Dose: 0.25 mg Clopidogrel Bisulfate (Plavix) 75 mg PO DAILY [facility] Last Admin: 11/29/18 09:32 Dose: 75 mg Enoxaparin Sodium (Lovenox) 40 mg SC DAILY [facility] Last Admin: 11/29/18 09:32 Dose: 40 mg Ergocalciferol (Drisdol 50,000 Intl Units Cap) 1 cap PO Q7D [facility] Stop: 12/17/18 10:01 Last Admin: 11/26/18 09:41 Dose: 1 cap Famotidine (Pepcid) 20 mg PO BID [facility] Last Admin: 11/29/18 17:37 Dose: 20 mg Furosemide (Lasix) 40 mg IVP BID [facility] Last Admin: 11/29/18 17:28 Dose: 40 mg Glimepiride (Amaryl) 2 mg PO DAILY [facility] Last Admin: 11/29/18 09:31 Dose: 2 mg Insulin Human Regular (Novolin R) 0 unit SC [facility]; Protocol Last Admin: 11/29/18 22:00 Dose: Not Given Levothyroxine Sodium (Synthroid) 88 mcg PO DAILY@0630 [facility] Last Admin: 11/29/18 06:30 Dose: 88 mcg Lidocaine (Lidoderm) 1 ea TD DAILY [facility] Last Admin: 11/29/18 09:33 Dose: 1 ea Losartan Potassium (Cozaar) 100 mg PO DAILY [facility] Last Admin: 11/29/18 09:31 Dose: 100 mg Metoclopramide HCl (Reglan) 5 mg PO ACTID [facility] Last Admin: 11/29/18 12:03 Dose: Not Given Metoprolol Tartrate (Lopressor) 50 mg PO BID [facility] Last Admin: 11/29/18 09:31 Dose: 50 mg Rosuvastatin Calcium (Crestor) 20 mg PO HS [facility] Last Admin: 11/29/18 22:48 Dose: 20 mg Spironolactone (Aldactone) 25 mg PO BID [facility] Last Admin: 11/29/18 17:28 Dose: 25 mg - Labs Labs: 11/29/18 06:07 11/29/18 06:07 PT 13.4 SECONDS (9.7-12.2) H 11/24/18 17:12 INR 1.2 11/24/18 17:12 APTT 49.0 SECONDS (21-34) H 11/27/18 04:49 Assessment and Plan - Assessment and Plan (Free Text) Plan: Patient seen and evaluated personally by me. Plan of care d/w the registered medical transcriptionist and as documented
[2018-11-29] MEDS: Enoxaparin 40 mg Syringe SC SCH (09:32)
[2018-11-29] MEDS: Lidocaine 5% Patch TD SCH (09:33)
--- NOTE | 2018-11-29 16:46 | CP.CCUPN ---
<Jose Lopez - Last Filed: 11/29/18 16:44> CCU Subjective - Physician Review Subjective (Free Text): PGY-1 ICU Progress Note for Dr. Macias Patient seen and examined at bedside. No acute events overnight. Undergoing post-op/pre-op monitoring s/p cath and planning transfer to [facility] pending bed availability. Continue to monitor. CCU Objective - Vital Signs / Intake & Output Vital Signs (Last 4 hours): Vital Signs Pulse Resp BP Pulse Ox 11/29/18 14:57 64 24 128/89 97 11/29/18 14:07 65 17 131/101 H 97 11/29/18 14:00 72 18 11/29/18 13:00 66 18 97 11/29/18 12:58 65 22 154/70 H 98 Intake and Output (Last 8hrs): Intake & Output 11/29/18 11/29/18 11/29/18 06:59 14:59 22:59 Intake Total 200 380 120 Output Total 300 320 0 Balance -100 60 120 Intake: Intake, IV Amount 0 left forearm 0 Oral 200 380 120 Output: Urine 300 320 0 Urine, Voided 300 320 0 Other: # Voids Urine, Voided 0 1 1 # Bowel Movements 0 0 - Physical Exam Head: Positive for: Atraumatic, Normocephalic Pupils: Positive for: PERRL Extroacular Muscles: Positive for: EOMI Respiratory/Chest: Positive for: Clear to Auscultation. Negative for: Respiratory Distress Cardiovascular: Positive for: Regular Rate and Rhythm, Normal S1, S2 Abdomen: Negative for: Tenderness Neurological: Positive for: CN II-XII Intact Skin: Positive for: Warm, Dry Psychiatric: Positive for: Oriented x 3 - Medications Active Medications: Active Medications Generic Name Dose Route Start Last Admin Trade Name Freq PRN Reason Stop Dose Admin Acetaminophen 650 mg 11/27/18 20:25 11/29/18 09:32 Tylenol 325mg Tab PO 650 mg Q6 PRN Administration Headache Albuterol Sulfate 2.5 mg 11/25/18 13:39 11/29/18 07:45 Albuterol 0.083% Inhal Sophie (2.5 Mg/3 Ml) Ud INH 2.5 mg RBID PRN Administration Wheezing Arformoterol Tartrate 15 mcg 11/25/18 14:15 11/29/18 07:45 Brovana INH 15 mcg RQ12 MARY Administration Aspirin 81 mg 11/25/18 10:00 11/29/18 10:48 Ecotrin PO 81 mg DAILY MARY Administration Budesonide 0.25 mg 11/25/18 14:15 11/29/18 07:45 Pulmicort Respules INH 0.25 mg RQ12 MARY Administration Clopidogrel Bisulfate 75 mg 11/25/18 10:00 11/29/18 09:32 Plavix PO 75 mg DAILY MARY Administration Enoxaparin Sodium 40 mg 11/28/18 10:00 11/29/18 09:32 Lovenox SC 40 mg DAILY MARY Administration Ergocalciferol 1 cap 11/26/18 10:00 11/26/18 09:41 Drisdol 50,000 Intl Units Cap PO 12/17/18 10:01 1 cap Q7D MARY Administration Famotidine 20 mg 11/25/18 10:00 11/29/18 09:31 Pepcid PO 20 mg BID MARY Administration Furosemide 40 mg 11/28/18 10:00 11/29/18 09:32 Lasix IVP 40 mg BID MARY Administration Glimepiride 2 mg 11/25/18 10:00 11/29/18 09:31 Amaryl PO 2 mg DAILY MARY Administration Insulin Human Regular 0 unit 11/24/18 22:00 11/29/18 16:25 Novolin R SC 2 u ACHS MARY Administration Protocol Levothyroxine Sodium 88 mcg 11/25/18 06:30 11/29/18 06:30 Synthroid PO 88 mcg DAILY@0630 MARY Administration Lidocaine 1 ea 11/26/18 12:15 11/29/18 09:33 Lidoderm TD 1 ea DAILY MARY Administration Losartan Potassium 100 mg 11/24/18 18:10 11/29/18 09:31 Cozaar PO 100 mg DAILY MARY Administration Metoclopramide HCl 5 mg 11/25/18 07:30 11/29/18 12:03 Reglan PO Not Given ACTID MARY Metoprolol Tartrate 50 mg 11/24/18 23:07 11/29/18 09:31 Lopressor PO 50 mg BID MARY Administration Rosuvastatin Calcium 20 mg 11/24/18 22:00 11/28/18 22:12 Crestor PO 20 mg HS MARY Administration Spironolactone 25 mg 11/26/18 10:00 11/29/18 09:31 Aldactone PO 25 mg BID MARY Administration - Patient Studies Lab Studies: Lab Studies 11/29/18 11/29/18 11/28/18 Range/Units 06:07 06:07 21:00 WBC 7.9 (4.8-10.8) K/uL RBC 3.83 (3.80-5.20) Mil/uL Hgb 10.6 L (11.0-16.0) g/dL Hct 32.7 L (34.0-47.0) % MCV 85.4 (81.0-99.0) fL MCH 27.6 (27.0-31.0) pg MCHC 32.4 L (33.0-37.0) g/dL RDW 15.4 H (11.5-14.5) % Plt Count 281 (130-400) K/uL MPV 8.1 (7.2-11.7) fL Neut % (Auto) 70.0 (50.0-75.0) % Lymph % (Auto) 19.7 L (20.0-40.0) % Gilliam % (Auto) 8.2 (0.0-10.0) % Eos % (Auto) 1.6 (0.0-4.0) % Baso % (Auto) 0.5 (0.0-2.0) % Neut # (Auto) 5.5 (1.8-7.0) K/uL Lymph # (Auto) 1.6 (1.0-4.3) K/uL Gilliam # (Auto) 0.6 (0.0-0.8) K/uL Eos # (Auto) 0.1 (0.0-0.7) K/uL Baso # (Auto) 0.0 (0.0-0.2) K/uL Sodium 140 (132-148) mmol/L Potassium 3.8 (3.6-5.2) mmol/L Chloride 100 (98-107) mmol/L Carbon Dioxide 29 (22-30) mmol/L Anion Gap 15 (10-20) BUN 36 H (7-17) mg/dL Creatinine 1.3 H (0.7-1.2) mg/dL Est GFR ( Amer) 49 Est GFR (Non-Af Amer) 41 POC Glucose (mg/dL) 122 H (65-110) mg/dL Random Glucose 86 D (65-105) mg/dL Calcium 9.5 (8.6-10.4) mg/dl Phosphorus 4.0 (2.5-4.5) mg/dL Magnesium 1.9 (1.6-2.3) mg/dL Total Bilirubin 0.3 (0.2-1.3) mg/dL AST 26 (14-36) U/L ALT 24 (9-52) U/L Alkaline Phosphatase 102 (38-126) U/L Total Protein 7.9 (6.3-8.3) g/dL Albumin 3.7 (3.5-5.0) g/dL Globulin 4.2 H (2.2-3.9) gm/dL Albumin/Globulin Ratio 0.9 L (1.0-2.1) 11/28/18 11/28/18 11/28/18 Range/Units 16:29 11:10 07:50 WBC (4.8-10.8) K/uL RBC (3.80-5.20) Mil/uL Hgb (11.0-16.0) g/dL Hct (34.0-47.0) % MCV (81.0-99.0) fL MCH (27.0-31.0) pg MCHC (33.0-37.0) g/dL RDW (11.5-14.5) % Plt Count (130-400) K/uL MPV (7.2-11.7) fL Neut % (Auto) (50.0-75.0) % Lymph % (Auto) (20.0-40.0) % Gilliam % (Auto) (0.0-10.0) % Eos % (Auto) (0.0-4.0) % Baso % (Auto) (0.0-2.0) % Neut # (Auto) (1.8-7.0) K/uL Lymph # (Auto) (1.0-4.3) K/uL Gilliam # (Auto) (0.0-0.8) K/uL Eos # (Auto) (0.0-0.7) K/uL Baso # (Auto) (0.0-0.2) K/uL Sodium (132-148) mmol/L Potassium (3.6-5.2) mmol/L Chloride (98-107) mmol/L Carbon Dioxide (22-30) mmol/L Anion Gap (10-20) BUN (7-17) mg/dL Creatinine (0.7-1.2) mg/dL Est GFR ( Amer) Est GFR (Non-Af Amer) POC Glucose (mg/dL) 188 H 243 H 104 (65-110) mg/dL Random Glucose (65-105) mg/dL Calcium (8.6-10.4) mg/dl Phosphorus (2.5-4.5) mg/dL Magnesium (1.6-2.3) mg/dL Total Bilirubin (0.2-1.3) mg/dL AST (14-36) U/L ALT (9-52) U/L Alkaline Phosphatase (38-126) U/L Total Protein (6.3-8.3) g/dL Albumin (3.5-5.0) g/dL Globulin (2.2-3.9) gm/dL Albumin/Globulin Ratio (1.0-2.1) 11/28/18 11/28/18 11/27/18 Range/Units 07:15 07:13 21:04 WBC (4.8-10.8) K/uL RBC (3.80-5.20) Mil/uL Hgb (11.0-16.0) g/dL Hct (34.0-47.0) % MCV (81.0-99.0) fL MCH (27.0-31.0) pg MCHC (33.0-37.0) g/dL RDW (11.5-14.5) % Plt Count (130-400) K/uL MPV (7.2-11.7) fL Neut % (Auto) (50.0-75.0) % Lymph % (Auto) (20.0-40.0) % Gilliam % (Auto) (0.0-10.0) % Eos % (Auto) (0.0-4.0) % Baso % (Auto) (0.0-2.0) % Neut # (Auto) (1.8-7.0) K/uL Lymph # (Auto) (1.0-4.3) K/uL Gilliam # (Auto) (0.0-0.8) K/uL Eos # (Auto) (0.0-0.7) K/uL Baso # (Auto) (0.0-0.2) K/uL Sodium (132-148) mmol/L Potassium (3.6-5.2) mmol/L Chloride (98-107) mmol/L Carbon Dioxide (22-30) mmol/L Anion Gap (10-20) BUN (7-17) mg/dL Creatinine (0.7-1.2) mg/dL Est GFR ( Amer) Est GFR (Non-Af Amer) POC Glucose (mg/dL) 54 L 59 L 115 H (65-110) mg/dL Random Glucose (65-105) mg/dL Calcium (8.6-10.4) mg/dl Phosphorus (2.5-4.5) mg/dL Magnesium (1.6-2.3) mg/dL Total Bilirubin (0.2-1.3) mg/dL AST (14-36) U/L ALT (9-52) U/L Alkaline Phosphatase (38-126) U/L Total Protein (6.3-8.3) g/dL Albumin (3.5-5.0) g/dL Globulin (2.2-3.9) gm/dL Albumin/Globulin Ratio (1.0-2.1) 11/27/18 11/27/18 11/27/18 Range/Units 19:11 12:31 07:31 WBC (4.8-10.8) K/uL RBC (3.80-5.20) Mil/uL Hgb (11.0-16.0) g/dL Hct (34.0-47.0) % MCV (81.0-99.0) fL MCH (27.0-31.0) pg MCHC (33.0-37.0) g/dL RDW (11.5-14.5) % Plt Count (130-400) K/uL MPV (7.2-11.7) fL Neut % (Auto) (50.0-75.0) % Lymph % (Auto) (20.0-40.0) % Gilliam % (Auto) (0.0-10.0) % Eos % (Auto) (0.0-4.0) % Baso % (Auto) (0.0-2.0) % Neut # (Auto) (1.8-7.0) K/uL Lymph # (Auto) (1.0-4.3) K/uL Gilliam # (Auto) (0.0-0.8) K/uL Eos # (Auto) (0.0-0.7) K/uL Baso # (Auto) (0.0-0.2) K/uL Sodium (132-148) mmol/L Potassium (3.6-5.2) mmol/L Chloride (98-107) mmol/L Carbon Dioxide (22-30) mmol/L Anion Gap (10-20) BUN (7-17) mg/dL Creatinine (0.7-1.2) mg/dL Est GFR ( Amer) Est GFR (Non-Af Amer) POC Glucose (mg/dL) 89 151 H 98 (65-110) mg/dL Random Glucose (65-105) mg/dL Calcium (8.6-10.4) mg/dl Phosphorus (2.5-4.5) mg/dL Magnesium (1.6-2.3) mg/dL Total Bilirubin (0.2-1.3) mg/dL AST (14-36) U/L ALT (9-52) U/L Alkaline Phosphatase (38-126) U/L Total Protein (6.3-8.3) g/dL Albumin (3.5-5.0) g/dL Globulin (2.2-3.9) gm/dL Albumin/Globulin Ratio (1.0-2.1) 11/26/18 11/26/18 11/26/18 Range/Units 21:14 21:12 17:14 WBC (4.8-10.8) K/uL RBC (3.80-5.20) Mil/uL Hgb (11.0-16.0) g/dL Hct (34.0-47.0) % MCV (81.0-99.0) fL MCH (27.0-31.0) pg MCHC (33.0-37.0) g/dL RDW (11.5-14.5) % Plt Count (130-400) K/uL MPV (7.2-11.7) fL Neut % (Auto) (50.0-75.0) % Lymph % (Auto) (20.0-40.0) % Gilliam % (Auto) (0.0-10.0) % Eos % (Auto) (0.0-4.0) % Baso % (Auto) (0.0-2.0) % Neut # (Auto) (1.8-7.0) K/uL Lymph # (Auto) (1.0-4.3) K/uL Gilliam # (Auto) (0.0-0.8) K/uL Eos # (Auto) (0.0-0.7) K/uL Baso # (Auto) (0.0-0.2) K/uL Sodium (132-148) mmol/L Potassium (3.6-5.2) mmol/L Chloride (98-107) mmol/L Carbon Dioxide (22-30) mmol/L Anion Gap (10-20) BUN (7-17) mg/dL Creatinine (0.7-1.2) mg/dL Est GFR ( Amer) Est GFR (Non-Af Amer) POC Glucose (mg/dL) 207 H 443 H* 106 (65-110) mg/dL Random Glucose (65-105) mg/dL Calcium (8.6-10.4) mg/dl Phosphorus (2.5-4.5) mg/dL Magnesium (1.6-2.3) mg/dL Total Bilirubin (0.2-1.3) mg/dL AST (14-36) U/L ALT (9-52) U/L Alkaline Phosphatase (38-126) U/L Total Protein (6.3-8.3) g/dL Albumin (3.5-5.0) g/dL Globulin (2.2-3.9) gm/dL Albumin/Globulin Ratio (1.0-2.1) 11/26/18 11/26/18 11/26/18 Range/Units 16:37 16:31 11:14 WBC (4.8-10.8) K/uL RBC (3.80-5.20) Mil/uL Hgb (11.0-16.0) g/dL Hct (34.0-47.0) % MCV (81.0-99.0) fL MCH (27.0-31.0) pg MCHC (33.0-37.0) g/dL RDW (11.5-14.5) % Plt Count (130-400) K/uL MPV (7.2-11.7) fL Neut % (Auto) (50.0-75.0) % Lymph % (Auto) (20.0-40.0) % Gilliam % (Auto) (0.0-10.0) % Eos % (Auto) (0.0-4.0) % Baso % (Auto) (0.0-2.0) % Neut # (Auto) (1.8-7.0) K/uL Lymph # (Auto) (1.0-4.3) K/uL Gilliam # (Auto) (0.0-0.8) K/uL Eos # (Auto) (0.0-0.7) K/uL Baso # (Auto) (0.0-0.2) K/uL Sodium (132-148) mmol/L Potassium (3.6-5.2) mmol/L Chloride (98-107) mmol/L Carbon Dioxide (22-30) mmol/L Anion Gap (10-20) BUN (7-17) mg/dL Creatinine (0.7-1.2) mg/dL Est GFR ( Amer) Est GFR (Non-Af Amer) POC Glucose (mg/dL) 71 65 250 H (65-110) mg/dL Random Glucose (65-105) mg/dL Calcium (8.6-10.4) mg/dl Phosphorus (2.5-4.5) mg/dL Magnesium (1.6-2.3) mg/dL Total Bilirubin (0.2-1.3) mg/dL AST (14-36) U/L ALT (9-52) U/L Alkaline Phosphatase (38-126) U/L Total Protein (6.3-8.3) g/dL Albumin (3.5-5.0) g/dL Globulin (2.2-3.9) gm/dL Albumin/Globulin Ratio (1.0-2.1) 11/26/18 11/25/18 11/25/18 Range/Units 07:18 21:05 16:39 WBC (4.8-10.8) K/uL RBC (3.80-5.20) Mil/uL Hgb (11.0-16.0) g/dL Hct (34.0-47.0) % MCV (81.0-99.0) fL MCH (27.0-31.0) pg MCHC (33.0-37.0) g/dL RDW (11.5-14.5) % Plt Count (130-400) K/uL MPV (7.2-11.7) fL Neut % (Auto) (50.0-75.0) % Lymph % (Auto) (20.0-40.0) % Gilliam % (Auto) (0.0-10.0) % Eos % (Auto) (0.0-4.0) % Baso % (Auto) (0.0-2.0) % Neut # (Auto) (1.8-7.0) K/uL Lymph # (Auto) (1.0-4.3) K/uL Gilliam # (Auto) (0.0-0.8) K/uL Eos # (Auto) (0.0-0.7) K/uL Baso # (Auto) (0.0-0.2) K/uL Sodium (132-148) mmol/L Potassium (3.6-5.2) mmol/L Chloride (98-107) mmol/L Carbon Dioxide (22-30) mmol/L Anion Gap (10-20) BUN (7-17) mg/dL Creatinine (0.7-1.2) mg/dL Est GFR ( Amer) Est GFR (Non-Af Amer) POC Glucose (mg/dL) 81 105 99 (65-110) mg/dL Random Glucose (65-105) mg/dL Calcium (8.6-10.4) mg/dl Phosphorus (2.5-4.5) mg/dL Magnesium (1.6-2.3) mg/dL Total Bilirubin (0.2-1.3) mg/dL AST (14-36) U/L ALT (9-52) U/L Alkaline Phosphatase (38-126) U/L Total Protein (6.3-8.3) g/dL Albumin (3.5-5.0) g/dL Globulin (2.2-3.9) gm/dL Albumin/Globulin Ratio (1.0-2.1) Laboratory Results - last 24 hr 11/25/18 11/25/18 11/26/18 16:39 21:05 07:18 WBC RBC Hgb Hct MCV MCH MCHC RDW Plt Count MPV Neut % (Auto) Lymph % (Auto) Gilliam % (Auto) Eos % (Auto) Baso % (Auto) Neut # (Auto) Lymph # (Auto) Gilliam # (Auto) Eos # (Auto) Baso # (Auto) Sodium Potassium Chloride Carbon Dioxide Anion Gap BUN Creatinine Est GFR ( Amer) Est GFR (Non-Af Amer) POC Glucose (mg/dL) 99 105 81 Random Glucose Calcium Phosphorus Magnesium Total Bilirubin AST ALT Alkaline Phosphatase Total Protein Albumin Globulin Albumin/Globulin Ratio 11/26/18 11/26/18 11/26/18 11:14 16:31 16:37 WBC RBC Hgb Hct MCV MCH MCHC RDW Plt Count MPV Neut % (Auto) Lymph % (Auto) Gilliam % (Auto) Eos % (Auto) Baso % (Auto) Neut # (Auto) Lymph # (Auto) Gilliam # (Auto) Eos # (Auto) Baso # (Auto) Sodium Potassium Chloride Carbon Dioxide Anion Gap BUN Creatinine Est GFR ( Amer) Est GFR (Non-Af Amer) POC Glucose (mg/dL) 250 H 65 71 Random Glucose Calcium Phosphorus Magnesium Total Bilirubin AST ALT Alkaline Phosphatase Total Protein Albumin Globulin Albumin/Globulin Ratio 11/26/18 11/26/18 11/26/18 17:14 21:12 21:14 WBC RBC Hgb Hct MCV MCH MCHC RDW Plt Count MPV Neut % (Auto) Lymph % (Auto) Gilliam % (Auto) Eos % (Auto) Baso % (Auto) Neut # (Auto) Lymph # (Auto) Gilliam # (Auto) Eos # (Auto) Baso # (Auto) Sodium Potassium Chloride Carbon Dioxide Anion Gap BUN Creatinine Est GFR ( Amer) Est GFR (Non-Af Amer) POC Glucose (mg/dL) 106 443 H* 207 H Random Glucose Calcium Phosphorus Magnesium Total Bilirubin AST ALT Alkaline Phosphatase Total Protein Albumin Globulin Albumin/Globulin Ratio 11/27/18 11/27/18 11/27/18 07:31 12:31 19:11 WBC RBC Hgb Hct MCV MCH MCHC RDW Plt Count MPV Neut % (Auto) Lymph % (Auto) Gilliam % (Auto) Eos % (Auto) Baso % (Auto) Neut # (Auto) Lymph # (Auto) Gilliam # (Auto) Eos # (Auto) Baso # (Auto) Sodium Potassium Chloride Carbon Dioxide Anion Gap BUN Creatinine Est GFR ( Amer) Est GFR (Non-Af Amer) POC Glucose (mg/dL) 98 151 H 89 Random Glucose Calcium Phosphorus Magnesium Total Bilirubin AST ALT Alkaline Phosphatase Total Protein Albumin Globulin Albumin/Globulin Ratio 11/27/18 11/28/18 11/28/18 21:04 07:13 07:15 WBC RBC Hgb Hct MCV MCH MCHC RDW Plt Count MPV Neut % (Auto) Lymph % (Auto) Gilliam % (Auto) Eos % (Auto) Baso % (Auto) Neut # (Auto) Lymph # (Auto) Gilliam # (Auto) Eos # (Auto) Baso # (Auto) Sodium Potassium Chloride Carbon Dioxide Anion Gap BUN Creatinine Est GFR ( Amer) Est GFR (Non-Af Amer) POC Glucose (mg/dL) 115 H 59 L 54 L Random Glucose Calcium Phosphorus Magnesium Total Bilirubin AST ALT Alkaline Phosphatase Total Protein Albumin Globulin Albumin/Globulin Ratio 11/28/18 11/28/18 11/28/18 07:50 11:10 16:29 WBC RBC Hgb Hct MCV MCH MCHC RDW Plt Count MPV Neut % (Auto) Lymph % (Auto) Gilliam % (Auto) Eos % (Auto) Baso % (Auto) Neut # (Auto) Lymph # (Auto) Gilliam # (Auto) Eos # (Auto) Baso # (Auto) Sodium Potassium Chloride Carbon Dioxide Anion Gap BUN Creatinine Est GFR ( Amer) Est GFR (Non-Af Amer) POC Glucose (mg/dL) 104 243 H 188 H Random Glucose Calcium Phosphorus Magnesium Total Bilirubin AST ALT Alkaline Phosphatase Total Protein Albumin Globulin Albumin/Globulin Ratio 11/28/18 11/29/18 11/29/18 21:00 06:07 06:07 WBC 7.9 RBC 3.83 Hgb 10.6 L Hct 32.7 L MCV 85.4 MCH 27.6 MCHC 32.4 L RDW 15.4 H Plt Count 281 MPV 8.1 Neut % (Auto) 70.0 Lymph % (Auto) 19.7 L Gilliam % (Auto) 8.2 Eos % (Auto) 1.6 Baso % (Auto) 0.5 Neut # (Auto) 5.5 Lymph # (Auto) 1.6 Gilliam # (Auto) 0.6 Eos # (Auto) 0.1 Baso # (Auto) 0.0 Sodium 140 Potassium 3.8 Chloride 100 Carbon Dioxide 29 Anion Gap 15 BUN 36 H Creatinine 1.3 H Est GFR ( Amer) 49 Est GFR (Non-Af Amer) 41 POC Glucose (mg/dL) 122 H Random Glucose 86 D Calcium 9.5 Phosphorus 4.0 Magnesium 1.9 Total Bilirubin 0.3 AST 26 ALT 24 Alkaline Phosphatase 102 Total Protein 7.9 Albumin 3.7 Globulin 4.2 H Albumin/Globulin Ratio 0.9 L Fingerstick Blood Sugar Results: 226 Review of Systems - Review of Systems All systems: reviewed and no additional remarkable complaints except Critical Care Progress Note - Nutrition Nutrition: Nutrition Category Date Time Status Heart Healthy Diet [DIET] Diets 11/27/18 Dinner Active Assessment/Plan - Assessment and Plan (Free Text) Assessment: Patient seen and examined at bedside in ICU. Underwent Cardiac cath yesterday, concerning for occlusion of 2 of 3 graft vessels, complete occlusion of levelock 3 vessels, and EF of 20%. Pending transfer to [facility] unit, once a bed is available. 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 Howard -s/p cardiac cath demonstrating occlusion of 2 of 3 graft vessels, complete occlusion of levelock 3 vessels, and EF of 20% -Pending transfer to [facility] -ICU cardiac monitoring -Trops trended -ASA 81, Plavix, Metoprolol, Aldactone Pulm -Monitor CXR for effusions -Lasix 40 IV daily -Maintain spO2>92% Renal ORTEGA -Dr. Alejandro Rivera -Cr improving - 1.2 -Lasix 40 IV BID Endo DM -ISS -Accuchekcs ACHS -Hypoglycemia protocol Assessment and plan d/w Dr. Gilberto Lopez, PGY-1 <Onofre Macias S - Last Filed: 11/29/18 17:29> CCU Subjective - Physician Review Critical Care Time Spent (in minutes): 30 CCU Objective - Vital Signs / Intake & Output Vital Signs (Last 4 hours): Vital Signs Pulse Resp BP Pulse Ox 11/29/18 14:57 64 24 128/89 97 11/29/18 14:07 65 17 131/101 H 97 11/29/18 14:00 72 18 Intake and Output (Last 8hrs): Intake & Output 11/29/18 11/29/18 11/29/18 06:59 14:59 22:59 Intake Total 200 380 120 Output Total 300 320 0 Balance -100 60 120 Intake: Intake, IV Amount 0 left forearm 0 Oral 200 380 120 Output: Urine 300 320 0 Urine, Voided 300 320 0 Other: # Voids Urine, Voided 0 1 1 # Bowel Movements 0 0 - Medications Active Medications: Active Medications Generic Name Dose Route Start Last Admin Trade Name Freq PRN Reason Stop Dose Admin Acetaminophen 650 mg 11/27/18 20:25 11/29/18 09:32 Tylenol 325mg Tab PO 650 mg Q6 PRN Administration Headache Albuterol Sulfate 2.5 mg 11/25/18 13:39 11/29/18 07:45 Albuterol 0.083% Inhal Sophie (2.5 Mg/3 Ml) Ud INH 2.5 mg RBID PRN Administration Wheezing Arformoterol Tartrate 15 mcg 11/25/18 14:15 11/29/18 07:45 Brovana INH 15 mcg RQ12 MARY Administration Aspirin 81 mg 11/25/18 10:00 11/29/18 10:48 Ecotrin PO 81 mg DAILY MARY Administration Budesonide 0.25 mg 11/25/18 14:15 11/29/18 07:45 Pulmicort Respules INH 0.25 mg RQ12 MARY Administration Clopidogrel Bisulfate 75 mg 11/25/18 10:00 11/29/18 09:32 Plavix PO 75 mg DAILY MARY Administration Enoxaparin Sodium 40 mg 11/28/18 10:00 11/29/18 09:32 Lovenox SC 40 mg DAILY MARY Administration Ergocalciferol 1 cap 11/26/18 10:00 11/26/18 09:41 Drisdol 50,000 Intl Units Cap PO 12/17/18 10:01 1 cap Q7D MARY Administration Famotidine 20 mg 11/25/18 10:00 11/29/18 09:31 Pepcid PO 20 mg BID MARY Administration Furosemide 40 mg 11/28/18 10:00 11/29/18 09:32 Lasix IVP 40 mg BID MARY Administration Glimepiride 2 mg 11/25/18 10:00 11/29/18 09:31 Amaryl PO 2 mg DAILY MARY Administration Insulin Human Regular 0 unit 11/24/18 22:00 11/29/18 16:25 Novolin R SC 2 u ACHS MARY Administration Protocol Levothyroxine Sodium 88 mcg 11/25/18 06:30 11/29/18 06:30 Synthroid PO 88 mcg DAILY@0630 MARY Administration Lidocaine 1 ea 11/26/18 12:15 11/29/18 09:33 Lidoderm TD 1 ea DAILY MARY Administration Losartan Potassium 100 mg 11/24/18 18:10 11/29/18 09:31 Cozaar PO 100 mg DAILY MARY Administration Metoclopramide HCl 5 mg 11/25/18 07:30 11/29/18 12:03 Reglan PO Not Given ACTID MARY Metoprolol Tartrate 50 mg 11/24/18 23:07 11/29/18 09:31 Lopressor PO 50 mg BID MARY Administration Rosuvastatin Calcium 20 mg 11/24/18 22:00 11/28/18 22:12 Crestor PO 20 mg HS MARY Administration Spironolactone 25 mg 11/26/18 10:00 11/29/18 09:31 Aldactone PO 25 mg BID MARY Administration - Patient Studies Lab Studies: Lab Studies 11/29/18 11/29/18 11/28/18 Range/Units 06:07 06:07 21:00 WBC 7.9 (4.8-10.8) K/uL RBC 3.83 (3.80-5.20) Mil/uL Hgb 10.6 L (11.0-16.0) g/dL Hct 32.7 L (34.0-47.0) % MCV 85.4 (81.0-99.0) fL MCH 27.6 (27.0-31.0) pg MCHC 32.4 L (33.0-37.0) g/dL RDW 15.4 H (11.5-14.5) % Plt Count 281 (130-400) K/uL MPV 8.1 (7.2-11.7) fL Neut % (Auto) 70.0 (50.0-75.0) % Lymph % (Auto) 19.7 L (20.0-40.0) % Gilliam % (Auto) 8.2 (0.0-10.0) % Eos % (Auto) 1.6 (0.0-4.0) % Baso % (Auto) 0.5 (0.0-2.0) % Neut # (Auto) 5.5 (1.8-7.0) K/uL Lymph # (Auto) 1.6 (1.0-4.3) K/uL Gilliam # (Auto) 0.6 (0.0-0.8) K/uL Eos # (Auto) 0.1 (0.0-0.7) K/uL Baso # (Auto) 0.0 (0.0-0.2) K/uL Sodium 140 (132-148) mmol/L Potassium 3.8 (3.6-5.2) mmol/L Chloride 100 (98-107) mmol/L Carbon Dioxide 29 (22-30) mmol/L Anion Gap 15 (10-20) BUN 36 H (7-17) mg/dL Creatinine 1.3 H (0.7-1.2) mg/dL Est GFR ( Amer) 49 Est GFR (Non-Af Amer) 41 POC Glucose (mg/dL) 122 H (65-110) mg/dL Random Glucose 86 D (65-105) mg/dL Calcium 9.5 (8.6-10.4) mg/dl Phosphorus 4.0 (2.5-4.5) mg/dL Magnesium 1.9 (1.6-2.3) mg/dL Total Bilirubin 0.3 (0.2-1.3) mg/dL AST 26 (14-36) U/L ALT 24 (9-52) U/L Alkaline Phosphatase 102 (38-126) U/L Total Protein 7.9 (6.3-8.3) g/dL Albumin 3.7 (3.5-5.0) g/dL Globulin 4.2 H (2.2-3.9) gm/dL Albumin/Globulin Ratio 0.9 L (1.0-2.1) 11/28/18 11/28/18 11/28/18 Range/Units 16:29 11:10 07:50 WBC (4.8-10.8) K/uL RBC (3.80-5.20) Mil/uL Hgb (11.0-16.0) g/dL Hct (34.0-47.0) % MCV (81.0-99.0) fL MCH (27.0-31.0) pg MCHC (33.0-37.0) g/dL RDW (11.5-14.5) % Plt Count (130-400) K/uL MPV (7.2-11.7) fL Neut % (Auto) (50.0-75.0) % Lymph % (Auto) (20.0-40.0) % Gilliam % (Auto) (0.0-10.0) % Eos % (Auto) (0.0-4.0) % Baso % (Auto) (0.0-2.0) % Neut # (Auto) (1.8-7.0) K/uL Lymph # (Auto) (1.0-4.3) K/uL Gilliam # (Auto) (0.0-0.8) K/uL Eos # (Auto) (0.0-0.7) K/uL Baso # (Auto) (0.0-0.2) K/uL Sodium (132-148) mmol/L Potassium (3.6-5.2) mmol/L Chloride (98-107) mmol/L Carbon Dioxide (22-30) mmol/L Anion Gap (10-20) BUN (7-17) mg/dL Creatinine (0.7-1.2) mg/dL Est GFR ( Amer) Est GFR (Non-Af Amer) POC Glucose (mg/dL) 188 H 243 H 104 (65-110) mg/dL Random Glucose (65-105) mg/dL Calcium (8.6-10.4) mg/dl Phosphorus (2.5-4.5) mg/dL Magnesium (1.6-2.3) mg/dL Total Bilirubin (0.2-1.3) mg/dL AST (14-36) U/L ALT (9-52) U/L Alkaline Phosphatase (38-126) U/L Total Protein (6.3-8.3) g/dL Albumin (3.5-5.0) g/dL Globulin (2.2-3.9) gm/dL Albumin/Globulin Ratio (1.0-2.1) 11/28/18 11/28/18 11/27/18 Range/Units 07:15 07:13 21:04 WBC (4.8-10.8) K/uL RBC (3.80-5.20) Mil/uL Hgb (11.0-16.0) g/dL Hct (34.0-47.0) % MCV (81.0-99.0) fL MCH (27.0-31.0) pg MCHC (33.0-37.0) g/dL RDW (11.5-14.5) % Plt Count (130-400) K/uL MPV (7.2-11.7) fL Neut % (Auto) (50.0-75.0) % Lymph % (Auto) (20.0-40.0) % Gilliam % (Auto) (0.0-10.0) % Eos % (Auto) (0.0-4.0) % Baso % (Auto) (0.0-2.0) % Neut # (Auto) (1.8-7.0) K/uL Lymph # (Auto) (1.0-4.3) K/uL Gilliam # (Auto) (0.0-0.8) K/uL Eos # (Auto) (0.0-0.7) K/uL Baso # (Auto) (0.0-0.2) K/uL Sodium (132-148) mmol/L Potassium (3.6-5.2) mmol/L Chloride (98-107) mmol/L Carbon Dioxide (22-30) mmol/L Anion Gap (10-20) BUN (7-17) mg/dL Creatinine (0.7-1.2) mg/dL Est GFR ( Amer) Est GFR (Non-Af Amer) POC Glucose (mg/dL) 54 L 59 L 115 H (65-110) mg/dL Random Glucose (65-105) mg/dL Calcium (8.6-10.4) mg/dl Phosphorus (2.5-4.5) mg/dL Magnesium (1.6-2.3) mg/dL Total Bilirubin (0.2-1.3) mg/dL AST (14-36) U/L ALT (9-52) U/L Alkaline Phosphatase (38-126) U/L Total Protein (6.3-8.3) g/dL Albumin (3.5-5.0) g/dL Globulin (2.2-3.9) gm/dL Albumin/Globulin Ratio (1.0-2.1) 11/27/18 11/27/18 11/27/18 Range/Units 19:11 12:31 07:31 WBC (4.8-10.8) K/uL RBC (3.80-5.20) Mil/uL Hgb (11.0-16.0) g/dL Hct (34.0-47.0) % MCV (81.0-99.0) fL MCH (27.0-31.0) pg MCHC (33.0-37.0) g/dL RDW (11.5-14.5) % Plt Count (130-400) K/uL MPV (7.2-11.7) fL Neut % (Auto) (50.0-75.0) % Lymph % (Auto) (20.0-40.0) % Gilliam % (Auto) (0.0-10.0) % Eos % (Auto) (0.0-4.0) % Baso % (Auto) (0.0-2.0) % Neut # (Auto) (1.8-7.0) K/uL Lymph # (Auto) (1.0-4.3) K/uL Gilliam # (Auto) (0.0-0.8) K/uL Eos # (Auto) (0.0-0.7) K/uL Baso # (Auto) (0.0-0.2) K/uL Sodium (132-148) mmol/L Potassium (3.6-5.2) mmol/L Chloride (98-107) mmol/L Carbon Dioxide (22-30) mmol/L Anion Gap (10-20) BUN (7-17) mg/dL Creatinine (0.7-1.2) mg/dL Est GFR ( Amer) Est GFR (Non-Af Amer) POC Glucose (mg/dL) 89 151 H 98 (65-110) mg/dL Random Glucose (65-105) mg/dL Calcium (8.6-10.4) mg/dl Phosphorus (2.5-4.5) mg/dL Magnesium (1.6-2.3) mg/dL Total Bilirubin (0.2-1.3) mg/dL AST (14-36) U/L ALT (9-52) U/L Alkaline Phosphatase (38-126) U/L Total Protein (6.3-8.3) g/dL Albumin (3.5-5.0) g/dL Globulin (2.2-3.9) gm/dL Albumin/Globulin Ratio (1.0-2.1) 11/26/18 11/26/18 11/26/18 Range/Units 21:14 21:12 17:14 WBC (4.8-10.8) K/uL RBC (3.80-5.20) Mil/uL Hgb (11.0-16.0) g/dL Hct (34.0-47.0) % MCV (81.0-99.0) fL MCH (27.0-31.0) pg MCHC (33.0-37.0) g/dL RDW (11.5-14.5) % Plt Count (130-400) K/uL MPV (7.2-11.7) fL Neut % (Auto) (50.0-75.0) % Lymph % (Auto) (20.0-40.0) % Gilliam % (Auto) (0.0-10.0) % Eos % (Auto) (0.0-4.0) % Baso % (Auto) (0.0-2.0) % Neut # (Auto) (1.8-7.0) K/uL Lymph # (Auto) (1.0-4.3) K/uL Gilliam # (Auto) (0.0-0.8) K/uL Eos # (Auto) (0.0-0.7) K/uL Baso # (Auto) (0.0-0.2) K/uL Sodium (132-148) mmol/L Potassium (3.6-5.2) mmol/L Chloride (98-107) mmol/L Carbon Dioxide (22-30) mmol/L Anion Gap (10-20) BUN (7-17) mg/dL Creatinine (0.7-1.2) mg/dL Est GFR ( Amer) Est GFR (Non-Af Amer) POC Glucose (mg/dL) 207 H 443 H* 106 (65-110) mg/dL Random Glucose (65-105) mg/dL Calcium (8.6-10.4) mg/dl Phosphorus (2.5-4.5) mg/dL Magnesium (1.6-2.3) mg/dL Total Bilirubin (0.2-1.3) mg/dL AST (14-36) U/L ALT (9-52) U/L Alkaline Phosphatase (38-126) U/L Total Protein (6.3-8.3) g/dL Albumin (3.5-5.0) g/dL Globulin (2.2-3.9) gm/dL Albumin/Globulin Ratio (1.0-2.1) 11/26/18 11/26/18 11/26/18 Range/Units 16:37 16:31 11:14 WBC (4.8-10.8) K/uL RBC (3.80-5.20) Mil/uL Hgb (11.0-16.0) g/dL Hct (34.0-47.0) % MCV (81.0-99.0) fL MCH (27.0-31.0) pg MCHC (33.0-37.0) g/dL RDW (11.5-14.5) % Plt Count (130-400) K/uL MPV (7.2-11.7) fL Neut % (Auto) (50.0-75.0) % Lymph % (Auto) (20.0-40.0) % Gilliam % (Auto) (0.0-10.0) % Eos % (Auto) (0.0-4.0) % Baso % (Auto) (0.0-2.0) % Neut # (Auto) (1.8-7.0) K/uL Lymph # (Auto) (1.0-4.3) K/uL Gilliam # (Auto) (0.0-0.8) K/uL Eos # (Auto) (0.0-0.7) K/uL Baso # (Auto) (0.0-0.2) K/uL Sodium (132-148) mmol/L Potassium (3.6-5.2) mmol/L Chloride (98-107) mmol/L Carbon Dioxide (22-30) mmol/L Anion Gap (10-20) BUN (7-17) mg/dL Creatinine (0.7-1.2) mg/dL Est GFR ( Amer) Est GFR (Non-Af Amer) POC Glucose (mg/dL) 71 65 250 H (65-110) mg/dL Random Glucose (65-105) mg/dL Calcium (8.6-10.4) mg/dl Phosphorus (2.5-4.5) mg/dL Magnesium (1.6-2.3) mg/dL Total Bilirubin (0.2-1.3) mg/dL AST (14-36) U/L ALT (9-52) U/L Alkaline Phosphatase (38-126) U/L Total Protein (6.3-8.3) g/dL Albumin (3.5-5.0) g/dL Globulin (2.2-3.9) gm/dL Albumin/Globulin Ratio (1.0-2.1) 11/26/18 11/25/18 11/25/18 Range/Units 07:18 21:05 16:39 WBC (4.8-10.8) K/uL RBC (3.80-5.20) Mil/uL Hgb (11.0-16.0) g/dL Hct (34.0-47.0) % MCV (81.0-99.0) fL MCH (27.0-31.0) pg MCHC (33.0-37.0) g/dL RDW (11.5-14.5) % Plt Count (130-400) K/uL MPV (7.2-11.7) fL Neut % (Auto) (50.0-75.0) % Lymph % (Auto) (20.0-40.0) % Gilliam % (Auto) (0.0-10.0) % Eos % (Auto) (0.0-4.0) % Baso % (Auto) (0.0-2.0) % Neut # (Auto) (1.8-7.0) K/uL Lymph # (Auto) (1.0-4.3) K/uL Gilliam # (Auto) (0.0-0.8) K/uL Eos # (Auto) (0.0-0.7) K/uL Baso # (Auto) (0.0-0.2) K/uL Sodium (132-148) mmol/L Potassium (3.6-5.2) mmol/L Chloride (98-107) mmol/L Carbon Dioxide (22-30) mmol/L Anion Gap (10-20) BUN (7-17) mg/dL Creatinine (0.7-1.2) mg/dL Est GFR ( Amer) Est GFR (Non-Af Amer) POC Glucose (mg/dL) 81 105 99 (65-110) mg/dL Random Glucose (65-105) mg/dL Calcium (8.6-10.4) mg/dl Phosphorus (2.5-4.5) mg/dL Magnesium (1.6-2.3) mg/dL Total Bilirubin (0.2-1.3) mg/dL AST (14-36) U/L ALT (9-52) U/L Alkaline Phosphatase (38-126) U/L Total Protein (6.3-8.3) g/dL Albumin (3.5-5.0) g/dL Globulin (2.2-3.9) gm/dL Albumin/Globulin Ratio (1.0-2.1) Laboratory Results - last 24 hr 11/25/18 11/25/18 11/26/18 16:39 21:05 07:18 WBC RBC Hgb Hct MCV MCH MCHC RDW Plt Count MPV Neut % (Auto) Lymph % (Auto) Gilliam % (Auto) Eos % (Auto) Baso % (Auto) Neut # (Auto) Lymph # (Auto) Gilliam # (Auto) Eos # (Auto) Baso # (Auto) Sodium Potassium Chloride Carbon Dioxide Anion Gap BUN Creatinine Est GFR ( Amer) Est GFR (Non-Af Amer) POC Glucose (mg/dL) 99 105 81 Random Glucose Calcium Phosphorus Magnesium Total Bilirubin AST ALT Alkaline Phosphatase Total Protein Albumin Globulin Albumin/Globulin Ratio 11/26/18 11/26/18 11/26/18 11:14 16:31 16:37 WBC RBC Hgb Hct MCV MCH MCHC RDW Plt Count MPV Neut % (Auto) Lymph % (Auto) Gilliam % (Auto) Eos % (Auto) Baso % (Auto) Neut # (Auto) Lymph # (Auto) Gilliam # (Auto) Eos # (Auto) Baso # (Auto) Sodium Potassium Chloride Carbon Dioxide Anion Gap BUN Creatinine Est GFR ( Amer) Est GFR (Non-Af Amer) POC Glucose (mg/dL) 250 H 65 71 Random Glucose Calcium Phosphorus Magnesium Total Bilirubin AST ALT Alkaline Phosphatase Total Protein Albumin Globulin Albumin/Globulin Ratio 11/26/18 11/26/18 11/26/18 17:14 21:12 21:14 WBC RBC Hgb Hct MCV MCH MCHC RDW Plt Count MPV Neut % (Auto) Lymph % (Auto) Gilliam % (Auto) Eos % (Auto) Baso % (Auto) Neut # (Auto) Lymph # (Auto) Gilliam # (Auto) Eos # (Auto) Baso # (Auto) Sodium Potassium Chloride Carbon Dioxide Anion Gap BUN Creatinine Est GFR ( Amer) Est GFR (Non-Af Amer) POC Glucose (mg/dL) 106 443 H* 207 H Random Glucose Calcium Phosphorus Magnesium Total Bilirubin AST ALT Alkaline Phosphatase Total Protein Albumin Globulin Albumin/Globulin Ratio 11/27/18 11/27/18 11/27/18 07:31 12:31 19:11 WBC RBC Hgb Hct MCV MCH MCHC RDW Plt Count MPV Neut % (Auto) Lymph % (Auto) Gilliam % (Auto) Eos % (Auto) Baso % (Auto) Neut # (Auto) Lymph # (Auto) Gilliam # (Auto) Eos # (Auto) Baso # (Auto) Sodium Potassium Chloride Carbon Dioxide Anion Gap BUN Creatinine Est GFR ( Amer) Est GFR (Non-Af Amer) POC Glucose (mg/dL) 98 151 H 89 Random Glucose Calcium Phosphorus Magnesium Total Bilirubin AST ALT Alkaline Phosphatase Total Protein Albumin Globulin Albumin/Globulin Ratio 11/27/18 11/28/18 11/28/18 21:04 07:13 07:15 WBC RBC Hgb Hct MCV MCH MCHC RDW Plt Count MPV Neut % (Auto) Lymph % (Auto) Gilliam % (Auto) Eos % (Auto) Baso % (Auto) Neut # (Auto) Lymph # (Auto) Gilliam # (Auto) Eos # (Auto) Baso # (Auto) Sodium Potassium Chloride Carbon Dioxide Anion Gap BUN Creatinine Est GFR ( Amer) Est GFR (Non-Af Amer) POC Glucose (mg/dL) 115 H 59 L 54 L Random Glucose Calcium Phosphorus Magnesium Total Bilirubin AST ALT Alkaline Phosphatase Total Protein Albumin Globulin Albumin/Globulin Ratio 11/28/18 11/28/18 11/28/18 07:50 11:10 16:29 WBC RBC Hgb Hct MCV MCH MCHC RDW Plt Count MPV Neut % (Auto) Lymph % (Auto) Gilliam % (Auto) Eos % (Auto) Baso % (Auto) Neut # (Auto) Lymph # (Auto) Gilliam # (Auto) Eos # (Auto) Baso # (Auto) Sodium Potassium Chloride Carbon Dioxide Anion Gap BUN Creatinine Est GFR ( Amer) Est GFR (Non-Af Amer) POC Glucose (mg/dL) 104 243 H 188 H Random Glucose Calcium Phosphorus Magnesium Total Bilirubin AST ALT Alkaline Phosphatase Total Protein Albumin Globulin Albumin/Globulin Ratio 11/28/18 11/29/18 11/29/18 21:00 06:07 06:07 WBC 7.9 RBC 3.83 Hgb 10.6 L Hct 32.7 L MCV 85.4 MCH 27.6 MCHC 32.4 L RDW 15.4 H Plt Count 281 MPV 8.1 Neut % (Auto) 70.0 Lymph % (Auto) 19.7 L Gilliam % (Auto) 8.2 Eos % (Auto) 1.6 Baso % (Auto) 0.5 Neut # (Auto) 5.5 Lymph # (Auto) 1.6 Gilliam # (Auto) 0.6 Eos # (Auto) 0.1 Baso # (Auto) 0.0 Sodium 140 Potassium 3.8 Chloride 100 Carbon Dioxide 29 Anion Gap 15 BUN 36 H Creatinine 1.3 H Est GFR ( Amer) 49 Est GFR (Non-Af Amer) 41 POC Glucose (mg/dL) 122 H Random Glucose 86 D Calcium 9.5 Phosphorus 4.0 Magnesium 1.9 Total Bilirubin 0.3 AST 26 ALT 24 Alkaline Phosphatase 102 Total Protein 7.9 Albumin 3.7 Globulin 4.2 H Albumin/Globulin Ratio 0.9 L Critical Care Progress Note - Nutrition Nutrition: Nutrition Category Date Time Status Heart Healthy Diet [DIET] Diets 11/27/18 Dinner Active Attending/Attestation - Attestation I have personally seen and examined this patient.: Yes I have fully participated in the care of the patient.: Yes I have reviewed all pertinent clinical information: Yes Notes (Text): 11/29/18 17:29 Patient seen and examined in the intensive care unit. Case discussed with housestaff in the morning rounds. Patient refusing LifeVest Pending transfer to [facility] Continue present treatment
--- NOTE | 2018-11-29 21:37 | CP.PCM.PN ---
Subjective - Date & Time of Evaluation Date of Evaluation: 11/29/18 Time of Evaluation: 18:00 - Subjective Subjective: dict Objective - Vital Signs/Intake and Output Vital Signs (last 24 hours): Temp Pulse Resp BP Pulse Ox 98 F 69 22 161/74 H 99 11/29/18 20:00 11/29/18 20:00 11/29/18 20:00 11/29/18 20:00 11/29/18 20:00 Intake and Output: 11/29/18 11/30/18 18:59 06:59 Intake Total 600 0 Output Total 540 300 Balance 60 -300 - Medications Medications: Current Medications Acetaminophen (Tylenol 325mg Tab) 650 mg PO Q6 PRN PRN Reason: Headache Last Admin: 11/29/18 09:32 Dose: 650 mg Albuterol Sulfate (Albuterol 0.083% Inhal Sophie (2.5 Mg/3 Ml) Ud) 2.5 mg INH RBID PRN PRN Reason: Wheezing Last Admin: 11/29/18 07:45 Dose: 2.5 mg Arformoterol Tartrate (Brovana) 15 mcg INH RQ12 [facility] Last Admin: 11/29/18 19:53 Dose: 15 mcg Aspirin (Ecotrin) 81 mg PO DAILY [facility] Last Admin: 11/29/18 10:48 Dose: 81 mg Budesonide (Pulmicort Respules) 0.25 mg INH RQ12 [facility] Last Admin: 11/29/18 19:53 Dose: 0.25 mg Clopidogrel Bisulfate (Plavix) 75 mg PO DAILY [facility] Last Admin: 11/29/18 09:32 Dose: 75 mg Enoxaparin Sodium (Lovenox) 40 mg SC DAILY [facility] Last Admin: 11/29/18 09:32 Dose: 40 mg Ergocalciferol (Drisdol 50,000 Intl Units Cap) 1 cap PO Q7D [facility] Stop: 12/17/18 10:01 Last Admin: 11/26/18 09:41 Dose: 1 cap Famotidine (Pepcid) 20 mg PO BID [facility] Last Admin: 11/29/18 17:37 Dose: 20 mg Furosemide (Lasix) 40 mg IVP BID [facility] Last Admin: 11/29/18 17:28 Dose: 40 mg Glimepiride (Amaryl) 2 mg PO DAILY [facility] Last Admin: 11/29/18 09:31 Dose: 2 mg Insulin Human Regular (Novolin R) 0 unit SC ACHS [facility]; Protocol Last Admin: 11/29/18 16:25 Dose: 2 u Levothyroxine Sodium (Synthroid) 88 mcg PO DAILY@0630 [facility] Last Admin: 11/29/18 06:30 Dose: 88 mcg Lidocaine (Lidoderm) 1 ea TD DAILY [facility] Last Admin: 11/29/18 09:33 Dose: 1 ea Losartan Potassium (Cozaar) 100 mg PO DAILY [facility] Last Admin: 11/29/18 09:31 Dose: 100 mg Metoclopramide HCl (Reglan) 5 mg PO ACTID [facility] Last Admin: 11/29/18 12:03 Dose: Not Given Metoprolol Tartrate (Lopressor) 50 mg PO BID [facility] Last Admin: 11/29/18 09:31 Dose: 50 mg Rosuvastatin Calcium (Crestor) 20 mg PO HS [facility] Last Admin: 11/28/18 22:12 Dose: 20 mg Spironolactone (Aldactone) 25 mg PO BID [facility] Last Admin: 11/29/18 17:28 Dose: 25 mg - Labs Labs: 11/29/18 06:07 11/29/18 06:07 PT 13.4 SECONDS (9.7-12.2) H 11/24/18 17:12 INR 1.2 11/24/18 17:12 APTT 49.0 SECONDS (21-34) H 11/27/18 04:49
--- NOTE | 2018-11-30 02:41 | PN ---
DATE: 11/29/2018 SUBJECTIVE: The patient is for transfer to [facility]. She is feeling better. She is less short of breath, less cough. Decreased dyspnea and decreased orthopnea. No fever. On diuretics. Intake and output, daily body weight, MICU. PHYSICAL EXAMINATION: VITAL SIGNS: Blood pressure 161/74, pulse 69, respiratory rate 22, temperature 98. LUNGS: Bilateral basal crepitations. Decreased air entry. CARDIOVASCULAR: S1, S2, regular. ABDOMEN: Soft, nontender. Bowel sounds are positive. ASSESSMENT: 1. Acute congestive heart failure due to dilated ischemic cardiomyopathy. 2. Coronary artery disease, status post coronary artery bypass grafting, multivessel disease with reocclusion of 2 out of 3 vessels. PLAN: The patient is for transfer to [facility]. We will monitor the patient. Abdiel Baca MD
[2018-11-30] MEDS: Levothyroxine 88 MCG TAB PO SCH (06:07)
[2018-11-30 06:12] LABS: BASO # 0.1 K/uL (0.0-0.2); BASO % 0.9 % (0.0-2.0); EOS # 0.2 K/uL (0.0-0.7); EOS % 3.2 % (0.0-4.0); HEMOGLOBIN 10.2 g/dL (11.0-16.0); LYMPH # 1.4 K/uL (1.0-4.3); LYMPH % 18.7 % (20.0-40.0); MEAN CELL VOLUME 84.8 fL (81.0-99.0); MEAN CORPUSCULAR HEMOGLOBIN 27.5 pg (27.0-31.0); MEAN CORPUSCULAR HGB CONC 32.4 g/dL (33.0-37.0); MEAN PLATELET VOLUME 8.3 fL (7.2-11.7); MONO # 0.6 K/uL (0.0-0.8); MONO % 8.6 % (0.0-10.0); NEUT # 5.1 K/uL (1.8-7.0); NEUT % 68.6 % (50.0-75.0); RBC 3.7 Mil/uL (3.80-5.20); RED CELL DISTRIBUTION WIDTH 15.7 % (11.5-14.5); WHITE BLOOD COUNT 7.4 K/uL (4.8-10.8)
--- NOTE | 2018-11-30 06:46 | CP.PCM.PN ---
Subjective - Date & Time of Evaluation Date of Evaluation: 11/30/18 Time of Evaluation: 07:10 - Subjective Subjective: Nephro Progress Note for Dr. Alejandro Cruz DO PGY-3 Patient seen and examined at bedside in ICU. Still pending transfer to [place] [facility] Failure unit. Reports otherwise at baseline state, mildly short of breath and with persistent low-level chest discomfort (present x4 days). Reports normal urination, denies hematuria/dysuria. Objective - Vital Signs/Intake and Output Vital Signs (last 24 hours): Temp Pulse Resp BP Pulse Ox 97.8 F 73 19 139/66 97 11/30/18 04:00 11/30/18 05:00 11/30/18 05:00 11/30/18 04:57 11/30/18 04:00 Intake and Output: 11/29/18 11/30/18 18:59 06:59 Intake Total 600 100 Output Total 540 1100 Balance 60 -1000 - Medications Medications: Current Medications Acetaminophen (Tylenol 325mg Tab) 650 mg PO Q6 PRN PRN Reason: Headache Last Admin: 11/29/18 22:59 Dose: 650 mg Albuterol Sulfate (Albuterol 0.083% Inhal Sophie (2.5 Mg/3 Ml) Ud) 2.5 mg INH RBID PRN PRN Reason: Wheezing Last Admin: 11/29/18 07:45 Dose: 2.5 mg Arformoterol Tartrate (Brovana) 15 mcg INH RQ12 [facility] Last Admin: 11/29/18 19:53 Dose: 15 mcg Aspirin (Ecotrin) 81 mg PO DAILY [facility] Last Admin: 11/29/18 10:48 Dose: 81 mg Budesonide (Pulmicort Respules) 0.25 mg INH RQ12 [facility] Last Admin: 11/29/18 19:53 Dose: 0.25 mg Clopidogrel Bisulfate (Plavix) 75 mg PO DAILY [facility] Last Admin: 11/29/18 09:32 Dose: 75 mg Enoxaparin Sodium (Lovenox) 40 mg SC DAILY [facility] Last Admin: 11/29/18 09:32 Dose: 40 mg Ergocalciferol (Drisdol 50,000 Intl Units Cap) 1 cap PO Q7D [facility] Stop: 12/17/18 10:01 Last Admin: 04/28/19 09:41 Dose: 1 cap Famotidine (Pepcid) 20 mg PO BID [facility] Last Admin: 11/29/18 17:37 Dose: 20 mg Furosemide (Lasix) 40 mg IVP BID [facility] Last Admin: 11/29/18 17:28 Dose: 40 mg Glimepiride (Amaryl) 2 mg PO DAILY [facility] Last Admin: 11/29/18 09:31 Dose: 2 mg Insulin Human Regular (Novolin R) 0 unit SC ACHS [facility]; Protocol Last Admin: 11/29/18 22:00 Dose: Not Given Levothyroxine Sodium (Synthroid) 88 mcg PO DAILY@0630 [facility] Last Admin: 11/30/18 06:07 Dose: 88 mcg Lidocaine (Lidoderm) 1 ea TD DAILY [facility] Last Admin: 11/29/18 09:33 Dose: 1 ea Losartan Potassium (Cozaar) 100 mg PO DAILY [facility] Last Admin: 11/29/18 09:31 Dose: 100 mg Metoclopramide HCl (Reglan) 5 mg PO ACTID [facility] Last Admin: 11/29/18 12:03 Dose: Not Given Metoprolol Tartrate (Lopressor) 50 mg PO BID [facility] Last Admin: 11/29/18 09:31 Dose: 50 mg Rosuvastatin Calcium (Crestor) 20 mg PO HS [facility] Last Admin: 11/29/18 22:48 Dose: 20 mg Spironolactone (Aldactone) 25 mg PO BID [facility] Last Admin: 11/29/18 17:28 Dose: 25 mg - Labs Labs: 11/30/18 06:06 11/29/18 06:07 PT 13.4 SECONDS (9.7-12.2) H 11/24/18 17:12 INR 1.2 11/24/18 17:12 APTT 49.0 SECONDS (21-34) H 11/27/18 04:49 - Additional Findings Additional findings: - Constitutional Appears: Non-toxic, No Acute Distress, Sitting comfortably at bedside - Head Exam Head Exam: ATRAUMATIC, NORMAL INSPECTION, NORMOCEPHALIC - Eye Exam Eye Exam: Normal appearance. absent: Conjunctival injection, Scleral icterus - ENT Exam ENT Exam: Mucous Membranes Moist - Respiratory Exam Respiratory Exam: Clear to Ausculation Bilateral, NORMAL BREATHING PATTERN. absent: Accessory Muscle Use, Chest Wall Tenderness, Decreased Breath Sounds, Rales, Rhonchi, Wheezes - Cardiovascular Exam Cardiovascular Exam: REGULAR RHYTHM, RRR, +S1, +S2. absent: Bradycardia, Tachycardia, Irregular Rhythm, JVD, +S4 - GI/Abdominal Exam GI & Abdominal Exam: Soft, Normal Bowel Sounds. absent: Distended, Firm, Guarding, Rigid, Tenderness, Diminished Bowel Sounds, Hyperactive Bowel Sounds, Hypoactive Bowel Sounds - Extremities Exam Extremities Exam: Pedal Edema (+1 pitting edema from feet to mid-shins bilaterally), Tenderness. absent: Calf Tenderness - Neurological Exam awake and alert, following all commands appropriately moving all extremities spontaneously and on command motor grossly intact and equal bilaterally - Psychiatric Exam Psychiatric exam: Normal Affect, Normal Mood - Skin Skin Exam: Dry, Intact, Normal Color, Warm Assessment and Plan - Assessment and Plan (Free Text) Assessment: This is a 68 yo F with PMH of DM, HTN, RA, SLE, GERD, and CAD s/p CABG who presented with complaints of SOB, abd pain, and exertional chest pain x1 week, and was found to have NSTEMI. Nephro was consulted for ORTEGA. S/p cardiac cath, now pending transfer to [place] [facility] unit. 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 and low EF 2) ORTEGA 3) NSTEMI 4) HTN 5) DM 6) Hx SLE 7) Hypothyroidism -Cr improved to 1.2 (was 1.3), continue to monitor -Improved but still present fluid overload, continue aldactone -Continue current BP management; mildly elevated yesterday and today AM (SBP 150's-160's) but decreases overnight while resting (SBP 110's-130's), aldactone increased to 50mg -Continue home synthroid -Pending transfer to [place] to Heart Failure unit due to EF 20% in setting of triple vessel dz with 2 of 3 graft vessels occluded Refusing Live-vest, at increased risk of sudden cardiac , patient aware but still refusing Seen, reviewed, and discussed with attending, Dr. Allen.
[2018-11-30 06:48] LABS: ALB/GLOB RATIO 0.9 (1.0-2.1); ALBUMIN 3.5 g/dL (3.5-5.0); CALCIUM 9.2 mg/dl (8.6-10.4)
[2018-11-30] MEDS: Budesonide 0.25 mg/2 ml Inhal Susp UD INH SCH (07:10)
[2018-11-30] MEDS: Albuterol 0.083% Inhal Sol (2.5 mg/3 mL) UD INH PRN (07:10)
[2018-11-30] MEDS: Arformoterol 15 mcg/2 ml Inh Sol INH SCH (07:10)
[2018-11-30] MEDS: (Novolin R) Insulin Human Regular 100 units/ml vial SC SCH ×3 (09:31→16:32)
[2018-11-30] MEDS: Lidocaine 5% Patch TD SCH (09:35)
[2018-11-30] MEDS: Enoxaparin 40 mg Syringe SC SCH (09:35)
--- NOTE | 2018-11-30 10:32 | CP.PCM.PN ---
<Jeanne Rivera - Last Filed: 11/30/18 16:26> Subjective - Date & Time of Evaluation Date of Evaluation: 11/30/18 Time of Evaluation: 10:32 - Subjective Subjective: Progress note for Dr. Howard Patient was seen and examined at bedside in no acute distress. Patient reports feeling a little short of breath, but no coughing, wheezing, chest pain, or palpitations. She also denies having n/v, abdominial pain, leg pain, dysuria, f gustavo, and headaches. No acute events overnight. Objective - Vital Signs/Intake and Output Vital Signs (last 24 hours): Temp Pulse Resp BP Pulse Ox 98.1 F 86 19 169/75 H 98 11/30/18 08:00 11/30/18 10:00 11/30/18 10:00 11/30/18 09:57 11/30/18 10:00 Intake and Output: 11/30/18 11/30/18 06:59 18:59 Intake Total 100 200 Output Total 1100 200 Balance -1000 0 - Medications Medications: Current Medications Acetaminophen (Tylenol 325mg Tab) 650 mg PO Q6 PRN PRN Reason: Headache Last Admin: 11/29/18 22:59 Dose: 650 mg Albuterol Sulfate (Albuterol 0.083% Inhal Sophie (2.5 Mg/3 Ml) Ud) 2.5 mg INH RBID PRN PRN Reason: Wheezing Last Admin: 11/30/18 07:10 Dose: 2.5 mg Arformoterol Tartrate (Brovana) 15 mcg INH RQ12 [facility] Last Admin: 11/30/18 07:10 Dose: 15 mcg Aspirin (Ecotrin) 81 mg PO DAILY [facility] Last Admin: 11/30/18 09:39 Dose: 81 mg Budesonide (Pulmicort Respules) 0.25 mg INH RQ12 [facility] Last Admin: 11/30/18 07:10 Dose: 0.25 mg Clopidogrel Bisulfate (Plavix) 75 mg PO DAILY [facility] Last Admin: 11/30/18 09:39 Dose: 75 mg Enoxaparin Sodium (Lovenox) 40 mg SC DAILY [facility] Last Admin: 11/30/18 09:35 Dose: 40 mg Ergocalciferol (Drisdol 50,000 Intl Units Cap) 1 cap PO Q7D [facility] Stop: 12/17/18 10:01 Last Admin: 11/26/18 09:41 Dose: 1 cap Famotidine (Pepcid) 20 mg PO BID [facility] Last Admin: 11/30/18 09:41 Dose: 20 mg Furosemide (Lasix) 40 mg IVP BID [facility] Last Admin: 11/30/18 09:33 Dose: 40 mg Glimepiride (Amaryl) 2 mg PO DAILY [facility] Last Admin: 11/30/18 09:37 Dose: Not Given Insulin Human Regular (Novolin R) 0 unit SC [facility]; Protocol Last Admin: 11/30/18 09:31 Dose: Not Given Levothyroxine Sodium (Synthroid) 88 mcg PO DAILY@0630 [facility] Last Admin: 11/30/18 06:07 Dose: 88 mcg Lidocaine (Lidoderm) 1 ea TD DAILY [facility] Last Admin: 11/30/18 09:35 Dose: 1 ea Losartan Potassium (Cozaar) 100 mg PO DAILY [facility] Last Admin: 11/30/18 09:32 Dose: 100 mg Metoclopramide HCl (Reglan) 5 mg PO ACTID [facility] Last Admin: 11/30/18 08:05 Dose: 5 mg Metoprolol Tartrate (Lopressor) 50 mg PO BID [facility] Last Admin: 11/30/18 09:32 Dose: 50 mg Rosuvastatin Calcium (Crestor) 20 mg PO HS [facility] Last Admin: 11/29/18 22:48 Dose: 20 mg Spironolactone (Aldactone) 50 mg PO BID [facility] Last Admin: 11/30/18 09:36 Dose: 50 mg - Labs Labs: 11/30/18 06:06 11/30/18 06:06 PT 13.4 SECONDS (9.7-12.2) H 11/24/18 17:12 INR 1.2 11/24/18 17:12 APTT 49.0 SECONDS (21-34) H 11/27/18 04:49 - Additional Findings Additional findings: - Constitutional Appears: No Acute Distress - Head Exam Head Exam: NORMAL INSPECTION - Eye Exam Eye Exam: EOMI - ENT Exam ENT Exam: Mucous Membranes Moist - Respiratory Exam Respiratory Exam: NORMAL BREATHING PATTERN, rales (r>l). absent: Rhonchi, Wheezes - Cardiovascular Exam Cardiovascular Exam: REGULAR RHYTHM, +S1, +S2 - GI/Abdominal Exam GI & Abdominal Exam: Soft, Normal Bowel Sounds. absent: Distended, Tenderness - Extremities Exam Extremities Exam: Pedal Edema (mild bilaterally). absent: Tenderness - Neurological Exam Neurological Exam: Alert, Awake, Oriented x3 - Psychiatric Exam Psychiatric exam: Normal Affect, Normal Mood - Skin Skin Exam: Dry, Normal Color, Warm Assessment and Plan - Assessment and Plan (Free Text) Plan: 68 yo F with PMH of DM, HTN, RA, SLE, GERD, and CAD s/p CABG who presented with complaints of SOB, abdominal pain, and exertional chest pain x1 week. Patient was found to have NSTEMI. S/p cardiac cath, now pending transfer to [facility]. Endstage ischemic cardiomyopathy CAD (triple vessel dz) s/p CABG - s/p cardiac cath demonstrating occlusion of 2 out of 3 graft vessels, complete occlusion of [place] 3 vessels, and EF of 20% - [place] +, 2.97, 3.35, 2.59, 2.00 - Patient refused [facility] yesterday - Continue ICU cardiac monitoring - Continue ASA 81mg PO daily, Plavix 75mg PO daily, Metoprolol 50mg PO BID, [id number] PO daily, Aldactone 25mg PO BID, Lasix 40mg IV BID, Crestor 20mg PO HS * Pending transfer to [facility] when bed available for further intervention. Case discussed with Dr. Lee Sheets, PGY2 <David Howard - Last Filed: 11/30/18 21:32> Objective - Vital Signs/Intake and Output Vital Signs (last 24 hours): Temp Pulse Resp BP Pulse Ox 98.2 F 68 20 159/80 H 100 11/30/18 19:30 11/30/18 19:30 11/30/18 19:30 11/30/18 19:30 11/30/18 19:30 Intake and Output: 11/30/18 12/01/18 18:59 06:59 Intake Total 550 0 Output Total 500 350 Balance 50 -350 - Labs Labs: 11/30/18 06:06 11/30/18 06:06 PT 13.4 SECONDS (9.7-12.2) H 11/24/18 17:12 INR 1.2 11/24/18 17:12 APTT 49.0 SECONDS (21-34) H 11/27/18 04:49 Assessment and Plan - Assessment and Plan (Free Text) Plan: Patient seen and evaluated personally by me. Plan of care d/w the certified medical aide and as documented
[2018-11-30 12:23] VITALS: O2SAT 100
[2018-11-30 12:28] LABS: SQUAMOUS EPITHIAL 1 /hpf (0-5); URINE BACTERIA RARE (<OCC); URINE BILIRUBIN NEGATIVE (NEGATIVE); URINE BLOOD NEGATIVE (NEGATIVE); URINE CLARITY Clear (Clear); URINE COLOR Straw (YELLOW); URINE GLUCOSE (UA) NORMAL (Normal); URINE LEUKOCYTE ESTERASE NEG Leu/uL (Negative); URINE PROTEIN NEGATIVE (NEGATIVE); URINE UROBILINOGEN NORMAL mg/dL (0.2-1.0)
[2018-11-30 19:14] VITALS: BP 159/80; PULSE 68
[2018-11-30 20:29] VITALS: RESP 20; TEMP 98.2
--- NOTE | 2018-11-30 21:34 | CP.PCM.DIS ---
Provider - Provider Date of Admission: 11/24/18 16:52 Attending physician: Abdiel Baca MD Consults: 11/24/18 16:53 Cardiology Consult Routine Comment: Consulting Provider: Love Jacome Consulting Physician: Love Jacome Reason for Consult: NSTEMI 11/24/18 18:09 Nephrology Consult Routine Comment: Consulting Provider: Silvano Allen Consulting Physician: Silvano Allen Reason for Consult: geronimo 11/25/18 13:53 Cardiology Consult Routine Comment: Consulting Provider: David Howard Consulting Physician: David Howard Reason for Consult: NSTEMI 11/25/18 14:06 Physician Consult Routine Comment: Consulting Provider: Domenic Butts Consulting Physician: Domenic Butts Reason for Consult: NSTEMI Additional Comments: PER Dr. Howard Time Spent in preparation of Discharge (in minutes): 30 Hospital Course - Lab Results Lab Results: Micro Results 11/27/18 05:46 Naris MRSA Culture (Admit) - Final MRSA NOT DETECTED 11/25/18 16:02 Nose MRSA Culture (Admit) - Final MRSA NOT DETECTED Most Recent Lab Values WBC 7.4 K/uL (4.8-10.8) 11/30/18 06:06 RBC 3.70 Mil/uL (3.80-5.20) L 11/30/18 06:06 Hgb 10.2 g/dL (11.0-16.0) L 11/30/18 06:06 Hct 31.4 % (34.0-47.0) L 11/30/18 06:06 MCV 84.8 fL (81.0-99.0) 11/30/18 06:06 MCH 27.5 pg (27.0-31.0) 11/30/18 06:06 MCHC 32.4 g/dL (33.0-37.0) L 11/30/18 06:06 RDW 15.7 % (11.5-14.5) H 11/30/18 06:06 Plt Count 257 K/uL (130-400) 11/30/18 06:06 MPV 8.3 fL (7.2-11.7) 11/30/18 06:06 Neut % (Auto) 68.6 % (50.0-75.0) 11/30/18 06:06 Lymph % (Auto) 18.7 % (20.0-40.0) L 11/30/18 06:06 Rolette % (Auto) 8.6 % (0.0-10.0) 11/30/18 06:06 Eos % (Auto) 3.2 % (0.0-4.0) 11/30/18 06:06 Baso % (Auto) 0.9 % (0.0-2.0) 11/30/18 06:06 Neut # (Auto) 5.1 K/uL (1.8-7.0) 11/30/18 06:06 Lymph # (Auto) 1.4 K/uL (1.0-4.3) 11/30/18 06:06 Rolette # (Auto) 0.6 K/uL (0.0-0.8) 11/30/18 06:06 Eos # (Auto) 0.2 K/uL (0.0-0.7) 11/30/18 06:06 Baso # (Auto) 0.1 K/uL (0.0-0.2) 11/30/18 06:06 PT 13.4 SECONDS (9.7-12.2) H 11/24/18 17:12 INR 1.2 11/24/18 17:12 APTT 49.0 SECONDS (21-34) H 11/27/18 04:49 Sodium 140 mmol/L (132-148) 11/30/18 06:06 Potassium 3.9 mmol/L (3.6-5.2) 11/30/18 06:06 Chloride 99 mmol/L (98-107) 11/30/18 06:06 Carbon Dioxide 28 mmol/L (22-30) 11/30/18 06:06 Anion Gap 17 (10-20) 11/30/18 06:06 BUN 32 mg/dL (7-17) H 11/30/18 06:06 Creatinine 1.2 mg/dL (0.7-1.2) 11/30/18 06:06 Est GFR ( Amer) 54 11/30/18 06:06 Est GFR (Non-Af Amer) 45 11/30/18 06:06 POC Glucose (mg/dL) 122 mg/dL (65-110) H 11/28/18 21:00 Random Glucose 66 mg/dL (65-105) D 11/30/18 06:06 Calcium 9.2 mg/dl (8.6-10.4) 11/30/18 06:06 Phosphorus 4.0 mg/dL (2.5-4.5) 11/30/18 06:06 Magnesium 1.7 mg/dL (1.6-2.3) 11/30/18 06:06 Iron 38 ug/dL (37-170) 11/26/18 06:09 TIBC 312 ug/dL (250-450) 11/26/18 06:09 % Saturation 12 (20-55) L 11/26/18 06:09 Ferritin 16.5 ng/mL 11/26/18 06:09 Total Bilirubin 0.4 mg/dL (0.2-1.3) 11/30/18 06:06 AST 25 U/L (14-36) 11/30/18 06:06 ALT 25 U/L (9-52) 11/30/18 06:06 Alkaline Phosphatase 93 U/L (38-126) 11/30/18 06:06 Total Creatine Kinase 44 U/L (30-135) 11/25/18 16:02 CK-MB (Mass) 1.44 ng/mL (0.0-3.38) 11/25/18 16:02 Troponin I 2.0000 ng/mL (0.00-0.120) H* 11/25/18 16:02 NT-Pro-B Natriuret Pep 92314 pg/mL (0-900) H 11/24/18 15:34 Total Protein 7.4 g/dL (6.3-8.3) 11/30/18 06:06 Albumin 3.5 g/dL (3.5-5.0) 11/30/18 06:06 Globulin 3.9 gm/dL (2.2-3.9) 11/30/18 06:06 Albumin/Globulin Ratio 0.9 (1.0-2.1) L 11/30/18 06:06 Triglycerides 115 mg/dL (0-149) 11/24/18 18:49 Cholesterol 132 mg/dL (0-199) 11/24/18 18:49 LDL Cholesterol Direct 86 mg/dL (0-129) 11/24/18 18:49 HDL Cholesterol 38 mg/dL (30-70) 11/24/18 18:49 Lipase 319 U/L (23-300) H 11/24/18 15:34 25-OH Vitamin D Total 13.5 NG/ML (30.0-100.0) L 11/26/18 06:09 PTH Intact Whole Molec 82 pg/mL (14-64) H 11/26/18 06:09 Urine Color Straw (YELLOW) 11/30/18 12:21 Urine Clarity Clear (Clear) 11/30/18 12:21 Urine pH 7.0 (5.0-8.0) 11/30/18 12:21 Ur Specific Miles 1.005 (1.003-1.030) 11/30/18 12:21 Urine Protein Negative mg/dL (NEGATIVE) 11/30/18 12:21 Urine Glucose (UA) Normal mg/dL (Normal) 11/30/18 12:21 Urine Ketones Negative mg/dL (NEGATIVE) 11/30/18 12:21 Urine Blood Negative (NEGATIVE) 11/30/18 12:21 Urine Nitrate Negative (NEGATIVE) 11/30/18 12:21 Urine Bilirubin Negative (NEGATIVE) 11/30/18 12:21 Urine Urobilinogen Normal mg/dL (0.2-1.0) 11/30/18 12:21 Ur Leukocyte Esterase Neg James/uL (Negative) 11/30/18 12:21 Urine WBC (Auto) < 1 /hpf (0-5) 11/30/18 12:21 Urine RBC (Auto) < 1 /hpf (0-3) 11/30/18 12:21 Ur Squamous Epith Cells 1 /hpf (0-5) 11/30/18 12:21 Urine Bacteria Rare (<OCC) 11/30/18 12:21 Ur Random Creatinine 23.2 mg/dL 11/25/18 14:55 U Random Total Protein 1913 mg/g creat (21-161) H 11/25/18 14:55 Ur Random Sodium 105 mmol/L 11/25/18 14:55 Ur Random Urea Nitrogn 195 mg/dL 11/25/18 14:55 Urine Creatinine 22 mg/dL (20-275) 11/25/18 14:55 Urine Microalbumin 22.4 mg/dL 11/25/18 14:55 Microalb/Creat Ratio 1016 (<30) H 11/25/18 14:55 Discharge Exam - Head Exam Head Exam: NORMAL INSPECTION Discharge Plan - Follow Up Plan Condition: GOOD Disposition: Trans to Other Acute Care Hosp
--- NOTE | 2018-11-30 22:05 | PQF ---
PROVIDER RESPONSE TEXT: Acute Systolic CHF REVIEWER QUERY TEXT: CHF Acuity and Type Physician?s Documentation Request This Form is Not a Permanent Document in the Medical Record Pt Name: NOAM OJEDA MR #: [id number] Payor: MEDICARE PART A Unit/Bed: C.9I-C18-P Adm Date: 11/24/2018 4:52:00 PM Reviewer: Cathy Morgan. Query Date: 11/28/2018 1:43:11 PM CHF Acuity and Type [id number] By submitting this query, we are merely seeking further clarification of documentation to accurately reflect all conditions that you are monitoring, evaluating, treating or that extend the hospitalizati on or utilize additional resources of care. Please utilize your independent clinical judgment when ad dressing the question(s) below. Dear Doctor Abdiel Baca, The patient?s Clinical Indicators include: History Of Present Illness : "68 y/o female pt with hx of HTN, DM, GERD and triple bypass presents to the ER c/o SOB, upper abdomi nal pain and intermittent chest pain for over a week.Pt reports chest pain is exertional and exacerba eren when she moves.Her SOB is also exertional and because it got worse, she is unable to lay down fla t.Pt also notes that she has intermittent b/l extremity swelling.Pt denies history of CHF and smoking " Dx: 1.Acute coronary syndrome. 2.Acute congestive heart failure, new onset. 3.Type 2 diabetes. 4.Hypertension; poorly controlled. 5.Hypothyroidism. 11/27 echo: LVEF 30-35% Left ventricle systolic function severely impaired 11/24 PBNP- [id number] Tx: Aldactone 25 mg PO BID, Lasix 40 mg IV OD, NS at 75 ml/hr, Heparin 25,000 units/250 ml /2 NS at 6.532 ml/hr, Lopressor 50 mg PO BID.Wt. monitoring , I and O. Congestive Heart Failure is documented in the Medical Record. Please document the type and acuity (in cludes probable or suspected) Such as: Type: -- Systolic -- Diastolic -- Combined -- Other, please specify Acuity: -- Acute -- Chronic -- Acute on chronic -- Other, please specify Also please document the underlying cause of the CHF (includes probable or suspected) PLEASE DOCUMENT ANY ADDITIONAL DIAGNOSES AND/OR SPECIFICITY IN THE PROGRESS NOTES AND/OR DISCHARGE LEDESMA MMARY. Clinically unable to determine/unknown Disagree with the above request Need to discuss Query created by: Cathy Villalobos on 11/28/2018 1:43 PM Electronically signed by: Abdiel Baca MD 11/30/2018 10:01 PM
--- NOTE | 2018-12-02 07:45 | DS ---
DISCHARGE DIAGNOSES: 1. Acute myocardial infarction with multivessel disease. 2. New onset ischemic heart failure. 3. Type 2 diabetes. 4. Hypertension. 5. Hyperlipidemia. HISTORY OF PRESENT ILLNESS: This is a 68-year-old [place] female with history of diabetes in 2012, hypertension, hyperlipidemia, type 2 diabetes who is compliant with her diet, medication, and followup. She came in because of shortness of breath, dyspnea at rest, dyspnea on exertional, orthopnea, paroxysmal nocturnal dyspnea, found to have acute myocardial infarction and 2 out of 3 upper grafts have been clogged, and the patient needs to be on medication. The patient needs to be followed up by congestive heart failure clinic at [facility]. The patient is feeling better. PHYSICAL EXAMINATION: VITAL SIGNS: She is afebrile. LUNGS: Bilateral basal crepitation. CARDIOVASCULAR SYSTEM: S1, S2 plus S3 positive. ABDOMEN: Soft. PLAN: Discharge the patient. Monitor the patient. Abdiel Baca MD
--- NOTE | 2018-12-06 18:14 | CARDCATH ---
PROCEDURE DATE: 11/27/2018 PROCEDURES: 1. Left heart catheterization. 2. Coronary angiogram. 3. DAILEY graft angiogram. 4. SVG graft angiogram. 5. Aortogram. REFERRING PHYSICIANS: 1. Dorcas Barnett MD 2. Love Jacome MD CLINICAL INDICATIONS: 1. Chest pain. 2. Non-ST elevation myocardial infarction. 3. Dyspnea. 4. Acute systolic heart failure. 5. Hypertension. 6. Hyperlipidemia. 7. Coronary artery disease, history of CABG. PERFORMING PHYSICIAN: David Howard MD DESCRIPTION OF PROCEDURE: After informed consent, the patient was prepped and draped in the usual sterile fashion. Lidocaine 2% was given in the right groin for local anesthesia. Using micropuncture technique, a 6[place] sheath was introduced into right common femoral artery. A JR4 diagnostic catheter engaged into left coronary artery. Contrast was injected and left coronary angiogram was done. Then the catheter was exchanged to JR4 6[place] diagnostic catheter. The catheter was engaged in the right coronary artery. Contrast was injected and right coronary angiogram was done. Then using a DAILEY catheter, DAILEY graft angiogram was performed. Using JR4 6[place] diagnostic catheter, SVG graft angiogram was performed. To visualize the other grafts aortic root angiogram was done using pigtail catheter and power injector. The patient tolerated the procedure well. Postprocedure, Mynx closure device was applied with excellent hemostasis. FINDINGS: 1. Left main is short and patent. 2. LAD has proximal long 90% stenosis. Distal LAD is 100% occluded. 3. Proximal left circumflex is 90% occluded. Distal left circumflex is 100% occluded. 4. Right coronary artery is dominant. Proximally it is occluded 100%. 5. DAILEY to LAD graft is patent. 6. SVG graft to the left circumflex and RCA are occluded. 7. Dilated left ventricle with global hypokinesis. EDP is very high. EDP is 52 mmHg. Ejection fraction is approximately 20% No gradient across the aortic valve. 8. Aortogram has revealed no aortic dissection or aneurysm. IMPRESSION: 1. Severe teller coronary artery disease. 2. Saphenous vein graft to right coronary artery and left circumflex are occluded. 3. Left internal mammary artery graft to left anterior descending is patent. 4. Severe ischemic cardiomyopathy with highly elevated end diastolic pressure and low ejection fraction of 20%. The patient is not amenable for either redo CABG or coronary intervention. Recommend aggressive medical therapy and treatment of heart failure. David Howard MD
== END 2018-11-30 19:50 | disposition short-term general hospital (02) | DRG 280 ==
LOC: C.ER 15:02 → C.6T 16:52 → C.9I 11-25 15:20
PROVIDERS: ADMIT Internal Medicine; ATTEND Internal Medicine
PROC: 4A023N7 Measurement of Cardiac Sampling and Pressure, Left Heart, Percutaneous Approach (ICD-10-PCS; principal; 2018-11-27)
PROC: B2111ZZ Fluoroscopy of Multiple Coronary Arteries using Low Osmolar Contrast (ICD-10-PCS; 2018-11-27)
PROC: B2181ZZ Fluoroscopy of Left Internal Mammary Bypass Graft using Low Osmolar Contrast (ICD-10-PCS; 2018-11-27)
DX: I21.4 Non-ST elevation (NSTEMI) myocardial infarction (principal); I50.43 Acute on chronic combined systolic (congestive) and diastolic (congestive) heart failure; E87.3 Alkalosis; I13.0 Hypertensive heart and chronic kidney disease with heart failure and stage 1 through stage 4 chronic kidney disease, or unspecified chronic kidney disease; N17.9 Acute kidney failure, unspecified; E78.5 Hyperlipidemia, unspecified; I25.10 Atherosclerotic heart disease of native coronary artery without angina pectoris; D64.9 Anemia, unspecified; E03.9 Hypothyroidism, unspecified; E11.22 Type 2 diabetes mellitus with diabetic chronic kidney disease; I25.5 Ischemic cardiomyopathy; J44.9 Chronic obstructive pulmonary disease, unspecified; M06.9 Rheumatoid arthritis, unspecified; M32.9 Systemic lupus erythematosus, unspecified; N18.9 Chronic kidney disease, unspecified; Z95.1 Presence of aortocoronary bypass graft